=== PATIENT | male | born 1950 | race Caucasian/White ===

== ENCOUNTER 2016-10-15 09:06 | Observation (INO) | payer OTHER ==
[~2016-10-15] VITALS: Ht 167.6 cm; Wt 70.0 kg
[~2016-10-15 09:06] MED LIST: INDO25SU PO; SPIRCAP INH; VENTAER INH; ZOFR4TAB PO
[2016-10-15 09:07] VITALS: BP 142/85; PULSE 96; RESP 20; TEMP 98; O2SAT 95
[2016-10-15 09:47] LABS: AUTOMATED NEUTROPHIL # 4.2 TH/MM3 (1.8-7.7); BASOPHIL # 0.1 TH/MM3 (0-0.2); BASOPHIL % 1.2 % (0.0-2.0); EOSINOPHIL # 0.1 TH/MM3 (0-0.4); HEMATOCRIT 38.1 % (39.0-51.0); HEMO FLAGS DIFF FINAL; LYMPH % 14.4 % (9.0-44.0); LYMPHOCYTE # 0.9 TH/MM3 (1.0-4.8); MEAN CELL VOLUME 91.3 FL (80.0-100.0); MEAN CORPUSCULAR HEMOGLOBIN 30.3 PG (27.0-34.0); MEAN CORPUSCULAR HGB CONC 33.2 % (32.0-36.0); NEUT % 70.4 % (16.0-70.0); PLATELET COUNT 227 TH/MM3 (150-450); RED BLOOD COUNT 4.17 MIL/MM3 (4.50-5.90); RED CELL DISTRIBUTION WIDTH 15.7 % (11.6-17.2)
[2016-10-15 09:58] LABS: APTT (PATIENT) 28.1 SEC (24.3-30.1); INTERNATIONAL NORMALIZED RATIO 1.1 RATIO; PROTHROMBIN TIME - PATIENT 12.7 SEC (9.8-11.6)
--- NOTE | 2016-10-15 10:01 | PD ---
HPI . blood in stool this morning ~630am Chief Complaint: GI Complaint Time Seen by Provider: 09:47 Travel History International Travel<30 days: No Contact w/Intl Traveler<30days: No Traveled to known affect area: No History of Present Illness HPI 65 yr old male with COPD, intermittent HTN, tobaccoism, OA of the hips here with c/o blood coming from his rectum since this morning around 630am. Patient says he was having a bowel movement and noticed some balls of stool coming out then noticed blood and water coming out of his rectum. He admits to pain in his abdomen and bloating that has been ongoing for over 2 weeks. He says he rates the pain as 6/10 in his stomach and describes it as sharp pain. He says he gets full after eating small amounts of food. He did take a laxative and states he felt better afterwards (2 weeks ago). He also tells me that he vomited on Friday and denies eating any new foods or taking new medicines. He does have a primary care doctor at the [place] and last seen them about Nov of last year. He has an upcoming appt in October. Upon further questioning, he does admit to heavy drinking daily and states he had 5-6 beer yesterday. He has been drinking since age 19. He denies any hard liquor usage. He has not been seen for these issues. At the time of examination patient denies cp, no new onset SOB, nausea, or diarrhea. He does take lisinopril, high cholesterol medicine, inhaler, OA medicine, and something at night to calm him down. OLD CT SCAN of abdomen: hepatic steatosis PFSH Past Medical History Arthritis: Yes Asthma: Yes Heart Rhythm Problems: No Cardiac Catheterization: No Cardiovascular Problems: No High Cholesterol: No Chest Pain: No Congestive Heart Failure: No COPD: Yes Diabetes: No Past Surgical History Coronary Artery Bypass Graft: No Other Surgery: No Social History Alcohol Use: Yes (DAILY) Tobacco Use: Yes (1 PPD) Substance Use: No Allergies-Medications (Allergen,Severity, Reaction): Coded Allergies: *MDRO Multi-Drug Resistant Organism (Verified Adverse Reaction, Unknown, ) MRSA (leg-04/30/16) Reported Meds & Prescriptions Reported Meds & Active Scripts Active Reported Magnesium Oxide 400 Mg Tab 400 Mg PO DAILY Lisinopril 10 Mg Tab 5 Mg PO DAILY Aspirin Adult Low Strength (Aspirin) 81 Mg Tabdr 81 Mg PO DAILY Remeron (Mirtazapine) 15 Mg Tab 15 Mg PO HS Symbicort Inh (Budesonide/Formoterol Fumarate) 80-4.5 Mcg/Act Aero 2 Puff INH Q12HR Rinse mouth after use Zocor (Simvastatin) 10 Mg Tab 5 Mg PO DAILY Ventolin Hfa 18 GM Inh (Albuterol Sulfate) 90 Mcg/Act Aer 2 Puff INH Q4H PRN Spiriva Handihaler (Tiotropium Inh) 18 Mcg Cap 18 Mcg INH HS 1 capsule = 18 mcg Review of Systems General / Constitutional: No: Fever Eyes: No: Visual changes HENT: No: Headaches Cardiovascular: No: Chest Pain or Discomfort Respiratory: No: Shortness of Breath Gastrointestinal: Positive: Abdominal Pain, Constipation, Changes in Bowel Habits, Other (Bright red blood per rectum ), No: Nausea Genitourinary: No: Dysuria Musculoskeletal: No: Pain Skin: No Rash Neurologic: No: Weakness Psychiatric: No: Depression Endocrine: No: Polydipsia Hematologic/Lymphatic: No: Easy Bruising Physical Exam Narrative Physical Exam GENERAL: AAOx 3, NAD, well nourished HEAD: normocephalic, atraumatic EARS: normal pinna, no deformities EYES; EOM intact, fundus clear, no icterus MOUTH: Moist mucous membranes, NECK: supple, no lymphadenopathy RESP: Diminished breath sounds without rales or rhonchi CARDIAC :s1 AND S2, no rub, murmur or gallop ABD: DISTENDED, TENDER TO LIGHT PALPATION IN LUQ AND LLQ, RECTAL: no external hemorrhoid, + internal hemorrhoid palpated on exam ( present) BACK: no cva tenderness EXT: no edema or cyanosis PSYCH : AAO x3, normal affect Data Data Last Documented VS Vital Signs Date Time Temp Pulse Resp B/P Pulse Ox O2 Delivery O2 Flow Rate FiO2 10/15/16 09:07 98.0 96 20 142/85 95 Room Air Orders Complete Blood Count With Diff (10/15/16 09:12) Comprehensive Metabolic Panel (10/15/16 09:12) Prothrombin Time / Inr (Pt) (10/15/16 09:12) Act Partial Throm Time (Ptt) (10/15/16 09:12) Iv Access Insert/Monitor (10/15/16 09:12) Type And Screen (10/15/16 09:12) NPO (10/15/16 10:01) Ct Abd/Pel W/O Iv Contrast (10/15/16 10:07) Oral Contrast - Adult (10/15/16 10:12) Sodium Chlor 0.9% 1000 Ml Inj (Ns 1000 M (10/15/16 11:15) Pantoprazole Inj (Protonix Inj) (10/15/16 11:15) Pantoprazole Inj (Protonix Inj) (10/15/16 12:00) Consult Gastroenterology (10/15/16 ) ^ Consent (10/15/16 11:31) Admit Order (Ed Use Only) (10/15/16 11:42) Labs Laboratory Tests Test 10/15/16 09:20 White Blood Count 6.0 TH/MM3 Red Blood Count 4.17 MIL/MM3 Hemoglobin 12.7 GM/DL Hematocrit 38.1 % Mean Corpuscular Volume 91.3 FL Mean Corpuscular Hemoglobin 30.3 PG Mean Corpuscular Hemoglobin 33.2 % Concent Red Cell Distribution Width 15.7 % Platelet Count 227 TH/MM3 Mean Platelet Volume 7.6 FL Neutrophils (%) (Auto) 70.4 % Lymphocytes (%) (Auto) 14.4 % Monocytes (%) (Auto) 13.0 % Eosinophils (%) (Auto) 1.0 % Basophils (%) (Auto) 1.2 % Neutrophils # (Auto) 4.2 TH/MM3 Lymphocytes # (Auto) 0.9 TH/MM3 Monocytes # (Auto) 0.8 TH/MM3 Eosinophils # (Auto) 0.1 TH/MM3 Basophils # (Auto) 0.1 TH/MM3 CBC Comment DIFF FINAL Differential Comment Prothrombin Time 12.7 SEC Prothromb Time International 1.1 RATIO Ratio Activated Partial 28.1 SEC Thromboplast Time Sodium Level 133 MEQ/L Potassium Level 4.0 MEQ/L Chloride Level 102 MEQ/L Carbon Dioxide Level 23.8 MEQ/L Anion Gap 7 MEQ/L Blood Urea Nitrogen 8 MG/DL Creatinine 0.87 MG/DL Estimat Glomerular Filtration 89 ML/MIN Rate Random Glucose 93 MG/DL Calcium Level 8.5 MG/DL Total Bilirubin 1.5 MG/DL Aspartate Amino Transf 134 U/L (AST/SGOT) Alanine Aminotransferase 60 U/L (ALT/SGPT) Alkaline Phosphatase 99 U/L Total Protein 9.8 GM/DL Albumin 2.8 GM/DL Blood Type A POSITIVE Antibody Screen NEGATIVE Blood Bank Comment MDM Medical Decision Making Medical Screen Exam Complete: Yes Emergency Medical Condition: Yes Medical Record Reviewed: Yes Differential Diagnosis constipation, hemorrhoids, diverticulitis, less likely GI bleed, liver cirrhosis (with abdominal distention), Narrative Course 65 yr old male with COPD, intermittent HTN, tobaccoism, OA of the hips here with c/o blood coming from his rectum since this morning around 630am. Patient says he was having a bowel movement and noticed some balls of stool coming out then noticed blood and water coming out of his rectum. He admits to pain in his abdomen and bloating that has been ongoing for over 2 weeks. He says he rates the pain as 6/10 in his stomach and describes it as sharp pain. He says he gets full after eating small amounts of food. He did take a laxative and states he felt better afterwards (2 weeks ago). He also tells me that he vomitted on Friday and denies eating any new foods or taking new medicines. He does have a primary care doctor at the [place] and last seen them about Jul of last year. He has an upcoming appt in October. Upon further questioning, he does admit to heavy drinking daily and states he had 5-6 beer yesterday. He has been drinking since age 19. He denies any hard liquor usage. He has not been seen for these issues. At the time of examination patient denies cp, no new onset SOB, nausea, or diarrhea. He does take lisinopril, high cholesterol medicine, inhaler, OA medicine, and something at night to calm him down. OLD CT SCAN of abdomen: hepatic steatosis Patient seen and examined. Workup initiated in triage. Once a medical bed becomes available, patient will be transferred and care assumed by the provider assigned to the case. Florecita Damian Oct 15, 2016 10:01
[2016-10-15 10:12] LABS: ANION GAP 7 MEQ/L (5-15); AST (GOT) 134 U/L (15-37); BICARBONATE 23.8 MEQ/L (21.0-32.0); BLOOD UREA NITROGEN 8 MG/DL (7-18); CHLORIDE 102 MEQ/L (98-107); GLOMERULAR FILTRATION RATE 89 ML/MIN (>89); SODIUM (NA) 133 MEQ/L (136-145)
[2016-10-15 10:15] LABS: ALKALINE PHOSPHATASE 99 U/L (45-117); ALT (GPT) 60 U/L (12-78); TOTAL BILIRUBIN ADULT 1.5 MG/DL (0.2-1.0)
--- NOTE | 2016-10-15 11:04 | PD ---
Physical Exam Narrative Patient was seen by physician cement tester assistant and signed out to me. Data Data Last Documented VS Vital Signs Date Time Temp Pulse Resp B/P Pulse Ox O2 Delivery O2 Flow Rate FiO2 10/15/16 09:07 98.0 96 20 142/85 95 Room Air Orders Complete Blood Count With Diff (10/15/16 09:12) Comprehensive Metabolic Panel (10/15/16 09:12) Prothrombin Time / Inr (Pt) (10/15/16 09:12) Act Partial Throm Time (Ptt) (10/15/16 09:12) Iv Access Insert/Monitor (10/15/16 09:12) Type And Screen (10/15/16 09:12) NPO (10/15/16 10:01) Ct Abd/Pel W/O Iv Contrast (10/15/16 10:07) Oral Contrast - Adult (10/15/16 10:12) Sodium Chlor 0.9% 1000 Ml Inj (Ns 1000 M (10/15/16 11:15) Pantoprazole Inj (Protonix Inj) (10/15/16 11:15) Protonix Drip 8ommg/Hr (10/15/16 11:30) Consult Gastroenterology (10/15/16 ) Labs Laboratory Tests Test 10/15/16 09:20 White Blood Count 6.0 TH/MM3 Red Blood Count 4.17 MIL/MM3 Hemoglobin 12.7 GM/DL Hematocrit 38.1 % Mean Corpuscular Volume 91.3 FL Mean Corpuscular Hemoglobin 30.3 PG Mean Corpuscular Hemoglobin 33.2 % Concent Red Cell Distribution Width 15.7 % Platelet Count 227 TH/MM3 Mean Platelet Volume 7.6 FL Neutrophils (%) (Auto) 70.4 % Lymphocytes (%) (Auto) 14.4 % Monocytes (%) (Auto) 13.0 % Eosinophils (%) (Auto) 1.0 % Basophils (%) (Auto) 1.2 % Neutrophils # (Auto) 4.2 TH/MM3 Lymphocytes # (Auto) 0.9 TH/MM3 Monocytes # (Auto) 0.8 TH/MM3 Eosinophils # (Auto) 0.1 TH/MM3 Basophils # (Auto) 0.1 TH/MM3 CBC Comment DIFF FINAL Differential Comment Prothrombin Time 12.7 SEC Prothromb Time International 1.1 RATIO Ratio Activated Partial 28.1 SEC Thromboplast Time Sodium Level 133 MEQ/L Potassium Level 4.0 MEQ/L Chloride Level 102 MEQ/L Carbon Dioxide Level 23.8 MEQ/L Anion Gap 7 MEQ/L Blood Urea Nitrogen 8 MG/DL Creatinine 0.87 MG/DL Estimat Glomerular Filtration 89 ML/MIN Rate Random Glucose 93 MG/DL Calcium Level 8.5 MG/DL Total Bilirubin 1.5 MG/DL Aspartate Amino Transf 134 U/L (AST/SGOT) Alanine Aminotransferase 60 U/L (ALT/SGPT) Alkaline Phosphatase 99 U/L Total Protein 9.8 GM/DL Albumin 2.8 GM/DL Blood Type A POSITIVE Antibody Screen NEGATIVE Blood Bank Comment MDM Supervised Visit with AYSHA: Yes Interpretation(s) 11:11 AM. CBC WBC 6.0. Hemoglobin 12.7 with hematocrit 38.1. Sodium 133. Total bili 1.5. AST 134. CT scan abdomen pelvis shows fatty infiltration of the liver. No acute process. Differential Diagnosis Differential diagnosis including gastritis, peptic ulcer disease, colitis, AV malformation, hemorrhoidal bleed. Narrative Course 65-year-old male with abdominal pain and rectal bleeding. Patient has history of EtOH abuse and on Indocin for osteoarthritis. Normal saline solution 1 25 cc an hour. Protonix 40 mg IV. Protonix drip started. Spoke with GI specialist Dr. León. Will see the patient. Diagnosis Primary Impression: GI bleed Qualified Code: K92.2 - Gastrointestinal hemorrhage, unspecified gastrointestinal hemorrhage type Admitting Information Admitting Physician Requests: Admit Faahd Chávez MD Oct 15, 2016 11:04
--- NOTE | 2016-10-15 11:06 | RADRPT ---
EXAM DATE/TIME: 10/15/2016 10:49 [facility] COMPARISON: CT ABDOMEN & PELVIS W CONTRAST, July 15, 2016, 10:02. INDICATIONS : Mid abdominal pain and rectal bleeding x 2 weeks. ORAL CONTRAST: No oral contrast ingested. RADIATION DOSE: 9.96 CTDIvol (mGy) MEDICAL HISTORY : Chronic obstructive pulmonary disease. Hypertension. SURGICAL HISTORY : None. ENCOUNTER: Initial ACUITY: 2 weeks PAIN SCALE: 6/10 LOCATION: Bilateral mid-abdomen TECHNIQUE: Volumetric scanning of the abdomen and pelvis was performed. Using automated exposure control and ad justment of the mA and/or kV according to patient size, radiation dose was kept as low as reasonably achievable to obtain optimal diagnostic quality images. FINDINGS: LOWER LUNGS: The visualized lower lungs are clear except for calcified granuloma in the right lower lobe. LIVER: Homogeneous density without lesion. There is diffuse fatty infiltration. The gallbladder appears unre markable. There is no dilation of the biliary tree. No calcified gallstones. SPLEEN: Normal size without lesion. Calcified splenic granulomas are again noted. PANCREAS: Within normal limits. KIDNEYS: Normal in size and shape. There is no mass, stone, or hydronephrosis. ADRENAL GLANDS: Within normal limits. VASCULAR: There is no aortic aneurysm. BOWEL/MESENTERY: The stomach, small bowel, and colon demonstrate no acute abnormality. There is no free intraperitone al air or fluid. There is a normal appendix. ABDOMINAL WALL: Within normal limits. RETROPERITONEUM: There is no lymphadenopathy. BLADDER: No wall thickening or mass. REPRODUCTIVE: Within normal limits. INGUINAL: There is no lymphadenopathy or hernia. MUSCULOSKELETAL: Within normal limits for patient age. CONCLUSION: 1. The bowel gas pattern appears unremarkable. The sensitivity is limited by the lack of oral and int ravenous contrast. 2. Fatty infiltration of the liver again noted. 3. Calcified splenic granulomas. Jamir Crawford MD on October 15, 2016 at 11:02 Board Certified Radiologist. This report was verified electronically.
[2016-10-15] MEDS ORDERED: PANTOPRAZOLE SODIUM 40 MG VIAL IV PUSH ONE (11:15)
[2016-10-15] MEDS ORDERED: LISI10TA3 PO (11:31)
[2016-10-15] MEDS ORDERED: MAGN400T2 PO (11:31)
[2016-10-15] MEDS ORDERED: SYMB80AE INH (11:31)
[2016-10-15] MEDS ORDERED: ASPI1TAB91 PO (11:31)
[2016-10-15] MEDS ORDERED: REME15TA PO (11:31)
[2016-10-15] MEDS ORDERED: ZOCO10TA PO (11:31)
[2016-10-15] MEDS: SODIUM CHLOR 0.9% 1000 ML INJ 1,000 ML IV SCH ×2 (11:39→19:05)
--- NOTE | 2016-10-15 11:51 | PD.CONS ---
HPI History of Present Illness This is a 65 year old male who came to the ER for evaluation of rectal bleeding that started around 6am this morning. He reports that he got up to move his bowels and he passed a large amount of bloody stool that was loose and mostly bright red blood- large amount of blood. He has had a total of 3 episodes. He reports that his abdomen has been bloated and "sore" for a few weeks. This was more severe last week and his abdomen was much tighter and the pain was quite severe. He was constipated at that time and took a laxative. He reports that he had a normal bowel movement and felt better afterwards. He had a similar episode a few months ago that lasted about a day and resolved on his own so he did not seek medical care. He denies nausea/vomiting, heartburn or reflux, decreased appetite, weight loss. He does not usually have constipation and last week was out of his norm. He takes a daily ASA at home and takes Aleve 3 tabs every day. He has a remote hx of PUD, many years ago. He had an EGD/ Colonoscopy 1 year ago at the [place] and he reports that this was normal. He drinks a 6 pack of beer per day, not every day, but pretty regularly. He denies any known history of liver cirrhosis. (Karen Sharma) PFSH Past Medical History Remote hx of PUD Rectal bleeding a few months ago- did not seek medical care Arthritis HTN COPD Past Surgical History EGD/Colonoscopy (Karen Sharma) Coded Allergies: *MDRO Multi-Drug Resistant Organism (Verified Adverse Reaction, Unknown, ) MRSA (leg-04/30/16) Medications Allergies Coded Allergies Type Severity Reaction Last Updated Verified *MDRO Multi-Drug Resistant Organism Adverse Reaction Unknown 10/15/16 Yes Active Scripts Medications Dose Route/Sig Days Date Category Dose Instructions Magnesium Oxide 400 Mg Tab 400 Mg PO DAILY 10/15/16 Reported Lisinopril 10 Mg Tab 5 Mg PO DAILY 10/15/16 Reported Aspirin Adult Low Strength (Aspirin) 81 Mg Tabdr 81 Mg PO DAILY 10/15/16 Reported Remeron (Mirtazapine) 15 Mg Tab 15 Mg PO HS 10/15/16 Reported Symbicort Inh (Budesonide/Formoterol Fumarate) 80-4.5 Mcg/Act Aero 2 Puff INH Q12HR 10/15/16 Reported Rinse mouth after use Zocor (Simvastatin) 10 Mg Tab 5 Mg PO DAILY 10/15/16 Reported Ventolin Hfa 18 GM Inh (Albuterol Sulfate) 90 Mcg/Act Aer 2 Puff INH Q4H PRN 07/15/16 Reported Spiriva Handihaler (Tiotropium Inh) 18 Mcg Cap 18 Mcg INH HS 07/15/16 Reported 1 capsule = 18 mcg Family History Multiple family members with cancer- lung, brain, breast. Cannot remember who. Believes his sister had cancer. Social History 1 PPD, ~40 years ~4 beers per day No illicit drug use. (Karen Sharma) Review of Systems Constitutional: COMPLAINS OF: Fatigue, DENIES: Weight loss, Change in appetite Respiratory: COMPLAINS OF: Cough, Shortness of breath Cardiovascular: DENIES: Chest pain Gastrointestinal: COMPLAINS OF: Abdominal pain, Bloody stools, Constipation, Diarrhea, Swelling of Abdomen, DENIES: Black stools, Nausea, Vomiting, Heartburn, Hematemesis Musculoskeletal: COMPLAINS OF: Joint pain Integumentary: DENIES: Abnormal pigmentation Hematologic/lymphatic: DENIES: Bruising Neurologic: DENIES: Headache Psychiatric: DENIES: Confusion (Karen Sharma) GI Exam Vitals I&O Vital Signs Date Time Temp Pulse Resp B/P Pulse Ox O2 Delivery O2 Flow Rate FiO2 10/15/16 09:07 98.0 96 20 142/85 95 Room Air Imaging Last Impressions Abdomen/Pelvis CT 10/15/16 1007 Signed Impressions: Service Date/Time: Saturday, October 15, 2016 10:49 - CONCLUSION: 1. The bowel gas pattern appears unremarkable. The sensitivity is limited by the lack of oral and intravenous contrast. 2. Fatty infiltration of the liver again noted. 3. Calcified splenic granulomas. Jamir Crawford MD Laboratory Test 10/15/16 09:20 White Blood Count 6.0 TH/MM3 Red Blood Count 4.17 MIL/MM3 Hemoglobin 12.7 GM/DL Hematocrit 38.1 % Mean Corpuscular Volume 91.3 FL Mean Corpuscular Hemoglobin 30.3 PG Mean Corpuscular Hemoglobin 33.2 % Concent Red Cell Distribution Width 15.7 % Platelet Count 227 TH/MM3 Mean Platelet Volume 7.6 FL Neutrophils (%) (Auto) 70.4 % Lymphocytes (%) (Auto) 14.4 % Monocytes (%) (Auto) 13.0 % Eosinophils (%) (Auto) 1.0 % Basophils (%) (Auto) 1.2 % Neutrophils # (Auto) 4.2 TH/MM3 Lymphocytes # (Auto) 0.9 TH/MM3 Monocytes # (Auto) 0.8 TH/MM3 Eosinophils # (Auto) 0.1 TH/MM3 Basophils # (Auto) 0.1 TH/MM3 CBC Comment DIFF FINAL Differential Comment Prothrombin Time 12.7 SEC Prothromb Time International 1.1 RATIO Ratio Activated Partial 28.1 SEC Thromboplast Time Sodium Level 133 MEQ/L Potassium Level 4.0 MEQ/L Chloride Level 102 MEQ/L Carbon Dioxide Level 23.8 MEQ/L Anion Gap 7 MEQ/L Blood Urea Nitrogen 8 MG/DL Creatinine 0.87 MG/DL Estimat Glomerular Filtration 89 ML/MIN Rate Random Glucose 93 MG/DL Calcium Level 8.5 MG/DL Total Bilirubin 1.5 MG/DL Aspartate Amino Transf 134 U/L (AST/SGOT) Alanine Aminotransferase 60 U/L (ALT/SGPT) Alkaline Phosphatase 99 U/L Total Protein 9.8 GM/DL Albumin 2.8 GM/DL Blood Type A POSITIVE Antibody Screen NEGATIVE Blood Bank Comment Physical Examination HEENT: Normocephalic; atraumatic; no jaundice. Throat is clear. NECK: Neck is supple, no JVD, no lymphadenopathy. CHEST: CTA CARDIAC: RRR ABDOMEN: Soft, nondistended, nontender; no hepatosplenomegaly; bowel sounds are present in all four quadrants. EXTREMITIES: No clubbing, cyanosis, or edema. SKIN: Normal; no rash; no jaundice. ATTENDING ANESTHESIOLOGIST: No focal deficits; alert and oriented times three. (Karen Sharma [facility]) Assessment and Plan Plan ASSESSMENT: - GIB, Hematochezia in patient with chronic ETOH use, daily ASA use, and daily Aleve use (3 per day). States he had similar episode a few months ago that resolved on his own and therefore he did not seek medical care. Woke up this am, passed 3 large bloody stools with large amount of bright red blood filling toilet. He denies any n/v/heartburn. No abdominal pain now, but states his entire abdomen is sore and that he did have constipation/bloating/abdominal pain last week. He took laxative at that time and had a good bowel movement and no further abdominal pain, although his entire has remained "sore" and bloated. Remote hx of PUD. He had an EGD/Colonoscopy 1 year ago at the [place] and he reports that this was normal. Abdomen/Pelvis CT (10/15/16)---> 1. The bowel gas pattern appears unremarkable. The sensitivity is limited by the lack of oral and intravenous contrast. 2. Fatty infiltration of the liver again noted. 3. Calcified splenic granulomas.He drinks a 6 pack of beer per day, not every day, but pretty regularly. He denies any known history of liver cirrhosis. NPO. Plan for egd with possible band ligation today. If this is negative, will need colonoscopy in am. Protonix Gtt. - Anemia, acute blood loss. 12.7/38.1. - Elevated LFTs with ongoing ETOH use. Denies the use of ETOH. Fatty liver on CT. T. Bili 1.5, AST 134, ALT 60, ALk Phosph 99. Consistent with ETOH abuse. - Hyponatremia, HTN, Arthritis per primary. PLAN: - Plan for EGD with possible band ligation today - Npo - Protonix Gtt - Serial HH - Transfuse as necessary - CBC, CMP in am - Notify GI of active bleeding - Supportive care - Further recommendations to follow based on results of above - Pt seen and examined by Dr. León and myself and this note is written on her behalf (Karen Sharma) Physician Comments seen, examined agree with above (Zeinab León MD) Karen Sharma Oct 15, 2016 11:50 Zeinab León MD Oct 15, 2016 14:10
[2016-10-15] MEDS: PANTOPRAZOLE INJ 80 MG in SODIUM CHLORIDE 0.9% INJ 100 ML IV SCH ×2 (12:01→21:04)
--- NOTE | 2016-10-15 12:12 | HHI.HP ---
[facility] Admission Diagnosis GI bleed Diagnoses: (1) GI bleed (2) Tobacco abuse (3) Benign hypertension (4) COPD (chronic obstructive pulmonary disease) (5) Arthritis (6) Alcohol abuse Chief Complaint: Blood per rectum -Bright red Travel History International Travel<30 Days: No Contact w/Intl Traveler <30 Da: No Traveled to Known Affected Are: No History of Present Illness 64 year-old male with a history of COPD, hypertension, arthritis with irregularity take 3 Aleve a day and 1 baby aspirin presented to the ED for evaluation of 3 episode of bright red blood per rectum which occur early this morning around 6 A.M associated with some abdominal service without any hematuria, hemoptysis. Patient reports similar episode about 2 months ago however at the time did not seek any medical attention. His last EGD/ colonoscopy was about a year ago without any abnormal findings. He drinks about 4 can of beer per day. He reported occasional shortness of breath however denies any chest pain. Review of Systems Other 12 systems reviewed and are negative except for the one mentioned in history of present illness Past Family Social History Past Medical History Remote hx of PUD Rectal bleeding a few months ago- did not seek medical care Arthritis HTN COPD Past Surgical History EGD/Colonoscopy Reported Medications Ventolin Hfa 18 GM Inh (Albuterol Sulfate) 90 Mcg/Act Aer 2 Puff INH Q4H PRN Spiriva Handihaler (Tiotropium Inh) 18 Mcg Cap 18 Mcg INH DAILY 1 capsule = 18 mcg Indocin Liq (Indomethacin) 25 Mg/5 Ml Susp 50 Mg PO TID Allergies: Coded Allergies: *MDRO Multi-Drug Resistant Organism (Verified Adverse Reaction, Unknown, ) MRSA (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 Cannot remember who. Believes his sister had cancer. Social History 1 PPD, ~40 years ~4 beers per day No illicit drug use. Physical Exam Vital Signs Vital Signs Date Time Temp Pulse Resp B/P Pulse Ox O2 Delivery O2 Flow Rate FiO2 10/15/16 09:07 98.0 96 20 142/85 95 Room Air Physical Exam GENERAL: This is a well-nourished, well-developed patient, in no apparent distress. SKIN: No rashes, ecchymoses or lesions. Cool and dry. HEAD: Atraumatic. Normocephalic. No temporal or scalp tenderness. EYES: Pupils equal round and reactive. Extraocular motions intact. No scleral icterus. No injection or drainage. ENT: Nose without bleeding, purulent drainage or septal hematoma. Throat without erythema, tonsillar hypertrophy or exudate. Uvula midline. Airway patent. NECK: Trachea midline. No JVD or lymphadenopathy. Supple, nontender, no meningeal signs. CARDIOVASCULAR: Regular rate and rhythm without murmurs, gallops, or rubs. RESPIRATORY: Clear to auscultation. Breath sounds equal bilaterally. No wheezes , rales, or rhonchi. GASTROINTESTINAL: Abdomen soft, non-tender, nondistended. No hepato-splenomegaly , or palpable masses. No guarding. MUSCULOSKELETAL: Extremities without clubbing, cyanosis, or edema. No joint tenderness, effusion, or edema noted. No calf tenderness. Negative Homans sign bilaterally. NEUROLOGICAL: Awake and alert. Cranial nerves II through XII intact. Motor and sensory grossly within normal limits. Five out of 5 muscle strength in all muscle groups. Normal speech. Laboratory Laboratory Tests Test 10/15/16 09:20 White Blood Count 6.0 Red Blood Count 4.17 Hemoglobin 12.7 Hematocrit 38.1 Mean Corpuscular Volume 91.3 Mean Corpuscular Hemoglobin 30.3 Mean Corpuscular Hemoglobin 33.2 Concent Red Cell Distribution Width 15.7 Platelet Count 227 Mean Platelet Volume 7.6 Neutrophils (%) (Auto) 70.4 Lymphocytes (%) (Auto) 14.4 Monocytes (%) (Auto) 13.0 Eosinophils (%) (Auto) 1.0 Basophils (%) (Auto) 1.2 Neutrophils # (Auto) 4.2 Lymphocytes # (Auto) 0.9 Monocytes # (Auto) 0.8 Eosinophils # (Auto) 0.1 Basophils # (Auto) 0.1 CBC Comment DIFF FINAL Differential Comment Prothrombin Time 12.7 Prothromb Time International 1.1 Ratio Activated Partial 28.1 Thromboplast Time Sodium Level 133 Potassium Level 4.0 Chloride Level 102 Carbon Dioxide Level 23.8 Anion Gap 7 Blood Urea Nitrogen 8 Creatinine 0.87 Estimat Glomerular Filtration 89 Rate Random Glucose 93 Calcium Level 8.5 Total Bilirubin 1.5 Aspartate Amino Transf 134 (AST/SGOT) Alanine Aminotransferase 60 (ALT/SGPT) Alkaline Phosphatase 99 Total Protein 9.8 Albumin 2.8 Blood Type A POSITIVE Antibody Screen NEGATIVE Blood Bank Comment Result Diagram: 10/15/16 0920 10/15/16 0920 Imaging Last Impressions Abdomen/Pelvis CT 10/15/16 1007 Signed Impressions: Service Date/Time: Saturday, October 15, 2016 10:49 - CONCLUSION: 1. The bowel gas pattern appears unremarkable. The sensitivity is limited by the lack of oral and intravenous contrast. 2. Fatty infiltration of the liver again noted. 3. Calcified splenic granulomas. Jamir Crawford MD Assessment and Plan Problem List: (1) GI bleed ICD Code: K92.2 Status: Acute (2) Benign hypertension ICD Code: I10 Status: Acute (3) COPD (chronic obstructive pulmonary disease) ICD Code: J44.9 Status: Acute (4) Arthritis ICD Code: M19.90 Status: Acute (5) Tobacco abuse ICD Code: Z72.0 Status: Acute (6) Alcohol abuse ICD Code: F10.10 Status: Acute Assessment and Plan 65-year-old male with 1-GI bleed: Likely upper GI, gastroenterology has been consulted for evaluation for panendoscopy. Start Protonix drip and monitor H&H. Hold aspirin and Aleve 2-Anemia of acute blood loss: However H&H stable, treatment as in above plan for EGD possible today pain consider colonoscopy tomorrow. 3-Hypertension: Resume lisinopril 4-COPD: No current exacerbation, resume; and start DuoNeb when necessary. Advised on tobacco cessation 5-Tobacco abuse: Counseled to quit, start nicotine patch 6-Alcohol abuse: Counseled to quit, rally pack and start CIWA per protocol 7-DVT prophylaxis: Chemical anti-prophylaxis contraindicated; bilateral SCDs 8-GI prophylaxis: EPI Code Status Full code Discussed Condition With Patient, ED physician Problem Qualifiers (1) GI bleed: Qualified Code: K92.2 - Gastrointestinal hemorrhage, unspecified gastrointestinal hemorrhage type Tito Hoover MD Oct 15, 2016 12:12
[2016-10-15] MEDS ORDERED: ACETAMINOPHEN 325 MG TAB PO PRN ×2 (12:15)
[2016-10-15] MEDS ORDERED: TEMAZEPAM 15 MG CAP PO PRN (12:15)
[2016-10-15] MEDS ORDERED: LORazepam 2 MG TAB PO PRN (12:15)
[2016-10-15] MEDS ORDERED: SODIUM CHLORIDE 0.9% FLUSH 5 ML FLUSH FLUSH PRN (12:15)
[2016-10-15] MEDS ORDERED: RESP: ALBUTEROL 2.5 MG/IPRATROPIUM 0.5 MG NEB (PRN) NEB (12:15)
[2016-10-15] MEDS ORDERED: LORazepam 1 MG TAB PO PRN (12:15)
[2016-10-15] MEDS ORDERED: ENALAPRILAT 1.25 MG/ML VIAL IV PUSH PRN (12:15)
[2016-10-15] MEDS ORDERED: FLUMAZENIL 0.5 MG/5 ML VIAL IV PUSH PRN (12:15)
[2016-10-15] MEDS ORDERED: ONDANSETRON HCL 4 MG/2 ML VIAL IVP PRN (12:15)
[2016-10-15] MEDS ORDERED: NALOXONE HCL 0.4 MG/ML AMP IV PRN (12:15)
[2016-10-15] MEDS ORDERED: LORazepam 2 MG/ML VIAL IV PUSH PRN ×4 (12:15)
[2016-10-15 13:10] VITALS: BP 142/85; PULSE 96; RESP 20; TEMP 98; O2SAT 95
[2016-10-15] MEDS ORDERED: LACTATED RINGER'S 1,000 ML BAG IV ONE (14:02)
[2016-10-15] MEDS ORDERED: PROPOFOL 200 MG/20 ML AMP IV ONE (14:02)
[2016-10-15] MEDS ORDERED: MAGNESIUM CITRATE SOLN 300 ML BTL PO ONE (14:15)
[2016-10-15 14:58] VITALS: BP 128/97; PULSE 89; RESP 24; TEMP 97.5; O2SAT 94
[2016-10-15] MEDS: NICOTINE 21 MG/24 HR PATCH TD SCH (15:28)
[2016-10-15 19:21] VITALS: BP 147/87; PULSE 100; RESP 18; TEMP 98.4; O2SAT 93
[2016-10-15] MEDS ORDERED: MIRTAZAPINE 15 MG TAB PO SCH (21:00)
[2016-10-15] MEDS: BUDESONIDE-FORMOTEROL 80/4.5 MCG INHALER INH SCH (21:03)
[2016-10-15] MEDS: SODIUM CHLORIDE 0.9% FLUSH 5 ML FLUSH FLUSH SCH (21:04)
[2016-10-15] MEDS: TIOTROPIUM BROMIDE 18 MCG INH INH SCH (21:04)
[2016-10-15 21:46] LABS: HEMATOCRIT 33.8 % (39.0-51.0); REVIEW FLAG FINAL
[2016-10-16] VITALS (7 sets, daily range): BP systolic 89–163; BP diastolic 49–96; PULSE 59–97; RESP 18–22; TEMP 97.1–98.1; O2SAT 92–96
[2016-10-16 02:52] LABS: BASOPHIL % 0.5 % (0.0-2.0); EOSINOPHIL % 0.9 % (0.0-4.0); HEMATOCRIT 33.1 % (39.0-51.0); HEMO FLAGS DIFF FINAL; LYMPH % 15.2 % (9.0-44.0); LYMPHOCYTE # 0.8 TH/MM3 (1.0-4.8); MEAN CELL VOLUME 90.7 FL (80.0-100.0); MEAN CORPUSCULAR HEMOGLOBIN 30.6 PG (27.0-34.0); MEAN CORPUSCULAR HGB CONC 33.7 % (32.0-36.0); MONO % 10.9 % (0.0-8.0); NEUT % 72.5 % (16.0-70.0); PLATELET COUNT 196 TH/MM3 (150-450); RED BLOOD COUNT 3.65 MIL/MM3 (4.50-5.90); RED CELL DISTRIBUTION WIDTH 15.5 % (11.6-17.2); WHITE BLOOD COUNT 5.6 TH/MM3 (4.0-11.0)
[2016-10-16 03:10] LABS: ALT (GPT) 53 U/L (12-78); ANION GAP 7 MEQ/L (5-15); AST (GOT) 120 U/L (15-37); BICARBONATE 24.7 MEQ/L (21.0-32.0); BLOOD UREA NITROGEN 8 MG/DL (7-18); CHLORIDE 108 MEQ/L (98-107); GLOMERULAR FILTRATION RATE 95 ML/MIN (>89); POTASSIUM 3.9 MEQ/L (3.5-5.1); SODIUM (NA) 140 MEQ/L (136-145)
[2016-10-16 03:12] LABS: ALKALINE PHOSPHATASE 87 U/L (45-117); TOTAL BILIRUBIN ADULT 1.3 MG/DL (0.2-1.0)
[2016-10-16] MEDS: SODIUM CHLOR 0.9% 1000 ML INJ 1,000 ML IV SCH (03:38)
[2016-10-16] MEDS: SODIUM CHLORIDE 0.9% FLUSH 5 ML FLUSH FLUSH SCH (09:00)
[2016-10-16] MEDS ORDERED: THIAMINE HCL 100 MG TAB PO SCH (09:00)
[2016-10-16] MEDS ORDERED: REMOVE OLD PATCH TD SCH (09:00)
[2016-10-16] MEDS ORDERED: LISINOPRIL 5 MG TAB PO SCH (09:00)
[2016-10-16] MEDS ORDERED: PRAVASTATIN SOD 10 MG TAB PO SCH (09:00)
[2016-10-16] MEDS ORDERED: DO NOT ADM ANY ANTICOAGULANT DRUGS XX PRN (09:30)
--- NOTE | 2016-10-16 09:36 | HHI.PR ---
Subjective Remarks Follow-up GI bleed 10/16/16-patient seen and examined, status post EGD yesterday and plan for colonoscopy today. Denies any GI bleed since admission. Objective Vitals Vital Signs Date Time Temp Pulse Resp B/P Pulse Ox O2 Delivery O2 Flow Rate FiO2 10/16/16 08:11 98.1 92 22 163/96 96 10/16/16 05:46 59 118/58 10/16/16 05:44 97.2 59 18 89/49 94 10/16/16 05:39 97.1 94 18 147/85 92 10/16/16 00:49 98.0 97 18 130/79 93 10/15/16 19:21 98.4 100 18 147/87 93 10/15/16 19:20 Nasal Cannula 3.00 10/15/16 14:58 97.5 89 24 128/97 94 10/15/16 14:22 99 18 134/83 96 10/15/16 14:17 98 18 126/90 97 10/15/16 14:12 98.5 99 18 128/81 96 10/15/16 13:10 98.0 96 20 142/85 95 I/O 10/15/16 10/15/16 10/15/16 10/16/16 10/16/16 10/16/16 07:00 15:00 23:00 07:00 15:00 23:00 Intake Total 100 ml Balance 100 ml Intake Other 100 ml # Bowel Movements 5 Result Diagram: 10/16/16 0231 10/16/16 0231 Imaging Last Impressions Abdomen/Pelvis CT 10/15/16 1007 Signed Impressions: Service Date/Time: Saturday, October 15, 2016 10:49 - CONCLUSION: 1. The bowel gas pattern appears unremarkable. The sensitivity is limited by the lack of oral and intravenous contrast. 2. Fatty infiltration of the liver again noted. 3. Calcified splenic granulomas. Jamir Crawford MD Objective Remarks GENERAL: NAD SKIN: Warm and dry. HEAD: Normocephalic. EYES: No scleral icterus. No injection or drainage. NECK: Supple, trachea midline. No JVD or lymphadenopathy. CARDIOVASCULAR: Regular rate and rhythm without murmurs, gallops, or rubs. RESPIRATORY: Breath sounds equal bilaterally. No accessory muscle use. GASTROINTESTINAL: Abdomen soft, non-tender, nondistended. MUSCULOSKELETAL: No cyanosis, or edema. BACK: Nontender without obvious deformity. No CVA tenderness. A/P Problem List: (1) GI bleed ICD Code: K92.2 Status: Acute (2) Benign hypertension ICD Code: I10 Status: Acute (3) COPD (chronic obstructive pulmonary disease) ICD Code: J44.9 Status: Acute (4) Arthritis ICD Code: M19.90 Status: Acute (5) Tobacco abuse ICD Code: Z72.0 Status: Acute (6) Alcohol abuse ICD Code: F10.10 Status: Acute Assessment and Plan 65-year-old male with 1-GI bleed: Likely upper GI, gastroenterology has been consulted, s/p EGD with finding of gastritis and duodenitis, plan for colonoscopy today . Continue Protonix drip and monitor H&H. Hold aspirin and Aleve. Advised on alcohol cessation 2-Anemia of acute blood loss: However H&H stable, treatment as in above ; s/p EGD 10/15/16 and plan for colonoscopy today. 3-Hypertension: Continue lisinopril 4-COPD: No current exacerbation, continue Symbicort and DuoNeb when necessary. Advised on tobacco cessation 5-Tobacco abuse: Counseled to quit, on nicotine patch 6-Alcohol abuse: Counseled to quit, rally pack and CIWA per protocol 7-DVT prophylaxis: Chemical anti-prophylaxis contraindicated; bilateral SCDs 8-GI prophylaxis: PPI Discharge Planning Discharge patient to home Condition on discharge: Improved Regular Diet as tolerated Ad Tory activity Rx written:see EMR Follow-up with primary care physician in 1 week Problem Qualifiers (1) GI bleed: Qualified Code: K92.2 - Gastrointestinal hemorrhage, unspecified gastrointestinal hemorrhage type Tito Hoover MD Oct 16, 2016 09:36
[2016-10-16] MEDS: NICOTINE 21 MG/24 HR PATCH TD SCH (10:26)
[2016-10-16] MEDS: TIOTROPIUM BROMIDE 18 MCG INH INH SCH (10:28)
[2016-10-16] MEDS: BUDESONIDE-FORMOTEROL 80/4.5 MCG INHALER INH SCH (10:28)
[2016-10-16] MEDS ORDERED: MAGNESIUM OXIDE 400 MG TAB PO SCH (12:00)
[2016-10-16] MEDS ORDERED: MIDAZOLAM HCL 2 MG/2 ML VIAL ONE (15:27)
[2016-10-16] MEDS ORDERED: PROT40TA PO (16:15)
[2016-10-16] MEDS ORDERED: PROPOFOL 200 MG/20 ML AMP IV ONE (16:35)
[2016-10-16] MEDS ORDERED: HYDROCORTISONE ACETATE 25 MG SUPP RECTAL SCH (21:00)
== END 2016-10-16 18:40 | disposition home or self-care (01) ==
LOC: NEPC 09:06 → INTOOBSV 11:45 → NEDA 11:45 → NEPHCDU 14:48
PROVIDERS: ADMIT Hospitalist; ATTEND Hospitalist
DX: D12.5 Benign neoplasm of sigmoid colon (principal); K57.30 Diverticulosis of large intestine without perforation or abscess without bleeding; K64.4 Residual hemorrhoidal skin tags; K64.8 Other hemorrhoids; Z80.9 Family history of malignant neoplasm, unspecified; K44.9 Diaphragmatic hernia without obstruction or gangrene; K31.9 Disease of stomach and duodenum, unspecified; I85.00 Esophageal varices without bleeding; K29.80 Duodenitis without bleeding; K29.50 Unspecified chronic gastritis without bleeding; K76.6 Portal hypertension; K92.1 Melena; J44.9 Chronic obstructive pulmonary disease, unspecified; R06.02 Shortness of breath; K76.0 Fatty (change of) liver, not elsewhere classified; D64.9 Anemia, unspecified; F10.10 Alcohol abuse, uncomplicated; F17.210 Nicotine dependence, cigarettes, uncomplicated
CPT/HCPCS: 00740; 00810; 43239; 45385; 74176; 80053; 85014; 85018; 85025; 85610; 85730; 86850; 86900; 86901; 87641; 88305; 88312; 94664; 96374; 99285; C9113; G0378; J2250; J7030; J7120

== ENCOUNTER 2017-03-02 20:03 | Emergency (ER) | payer OTHER ==
[~2017-03-02] VITALS: Ht 167.6 cm; Wt 78.0 kg
[~2017-03-02 20:03] MED LIST changes: +ASPI1TAB91 PO; -INDO25SU PO; +LISI10TA3 PO; +MAGN400T2 PO; +PROT40TA PO; +REME15TA PO; +SYMB80AE INH; +ZOCO10TA PO; -ZOFR4TAB PO
[2017-03-02 20:06] VITALS: BP 155/85; PULSE 100; RESP 18; TEMP 98.7; O2SAT 95
--- NOTE | 2017-03-02 20:52 | PD ---
Physical Exam Date Seen by Provider: Mar 02, 2017 Time Seen by Provider: 20:49 Data Data Last Documented VS Vital Signs Date Time Temp Pulse Resp B/P Pulse Ox O2 Delivery O2 Flow Rate FiO2 03/02/17 20:06 98.7 100 18 155/85 95 Room Air [facility] Supervised Visit with AYSHA: No Narrative Course 66 YO M with complaint of redness, 9/120 pain and swelling of bilateral feet x "a couple of weeks." Took his 's "water pill" which helped some. [facility] Vitals reviewed. Patient seen in triage, awaiting bed placement. Mable Prasad Mar 02, 2017 20:52
[2017-03-02 21:38] VITALS: BP 158/96; PULSE 95; RESP 19; O2SAT 95
[2017-03-02] MEDS ORDERED: MORPHINE SULFATE 4 MG/ML INJ IV PUSH ONE (21:45)
[2017-03-02] MEDS ORDERED: FUROSEMIDE 40 MG/4 ML VIAL IV PUSH ONE (21:45)
[2017-03-02] MEDS ORDERED: ONDANSETRON HCL 4 MG/2 ML VIAL IV PUSH ONE (21:45)
--- NOTE | 2017-03-02 21:55 | PD ---
HPI Chief Complaint: Edema Time Seen by Provider: 21:50 Travel History International Travel<30 days: No Contact w/Intl Traveler<30days: No Traveled to known affect area: No History of Present Illness HPI 66-year-old male that presents to the ED for evaluation of lower leg edema and pain. Per patient she's had this for the past 2 weeks. Per patient his been taking some of his 's "water pill" with minimal relief. Per patient she has no history of heart disease but he does have a history of heavy drinking. He does report having some shortness of breath with exertion as well as a history of COPD. Patient does appear to have some edema to his lower legs. Per patient the pain on his lower legs is 8 out of 10. Gets worse with ambulating. He also reports having redness on the lower legs bilaterally. No injuries. Has a history of high cholesterol. He denies any discolorations alert and erythema. No ulcerations. Has a history of MRSA. He denies any chest pain. No abdominal pain but he does state having more distention than his usual. He states that he drinks every day. He denies any other medical problems. He has not been able to see his doctor. Examine aspirin one a day. Denies any recent travel. PFSH Past Medical History Arthritis: Yes Asthma: No Blood Disorders: No Heart Rhythm Problems: No Cancer: No Cardiac Catheterization: No Cardiovascular Problems: Yes (HTN) High Cholesterol: No Chest Pain: No Congestive Heart Failure: No COPD: Yes Diabetes: No Endocrine: No Gastrointestinal Disorders: Yes Genitourinary: No Heparin Induced Thrombocytopen: No Hypertension: Yes Immune Disorder: No Musculoskeletal: No Neurologic: No Psychiatric: No Reproductive: No Respiratory: Yes (COPD) Sleep Apnea: No Thyroid Disease: No Past Surgical History Coronary Artery Bypass Graft: No Other Surgery: No Family History Family Myocardial Infarction: Yes (FATHER) Social History Alcohol Use: Yes (DAILY) Tobacco Use: Yes (1 PPD) Substance Use: No Allergies-Medications (Allergen,Severity, Reaction): Coded Allergies: *MDRO Multi-Drug Resistant Organism (Verified Adverse Reaction, Unknown, ) MRSA (leg-04/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) MRSA PCR (nares) POSITIVE - 10/16/16 Reported Meds & Prescriptions Reported Meds & Active Scripts Active Lortab (Hydrocodone-Acetaminophen) 5-325 Mg Tab 1 Tab PO Q6H PRN Potassium Chloride ER (Potassium Chloride) 10 Meq Cap 10 Meq PO DAILY 10 Days Furosemide 20 Mg Tab 20 Mg PO BID Bactrim DS (Sulfamethoxazole-Trimethoprim) 800-160 Mg Tab 1 Tab PO BID 14 Days Reported Magnesium Oxide 400 Mg Tab 400 Mg PO DAILY Lisinopril 10 Mg Tab 5 Mg PO DAILY Aspirin Adult Low Strength (Aspirin) 81 Mg Tabdr 81 Mg PO DAILY Remeron (Mirtazapine) 15 Mg Tab 15 Mg PO HS Symbicort Inh (Budesonide/Formoterol Fumarate) 80-4.5 Mcg/Act Aero 2 Puff INH Q12HR Rinse mouth after use Zocor (Simvastatin) 10 Mg Tab 5 Mg PO DAILY Ventolin Hfa 18 GM Inh (Albuterol Sulfate) 90 Mcg/Act Aer 2 Puff INH Q4H PRN Spiriva Handihaler (Tiotropium Inh) 18 Mcg Cap 18 Mcg INH HS 1 capsule = 18 mcg Review of Systems Except as stated in HPI: all other systems reviewed are Neg Physical Exam Narrative GENERAL: SKIN: Warm and dry. HEAD: Atraumatic. Normocephalic. EYES: Pupils equal and round. No scleral icterus. No injection or drainage. ENT: No nasal bleeding or discharge. Mucous membranes pink and moist. Tongue is midline. No uvula deviation. NECK: Trachea midline. No JVD. CARDIOVASCULAR: Regular rate and rhythm. No murmurs, S3, S4. RESPIRATORY: No accessory muscle use. Clear to auscultation. Breath sounds equal bilaterally. GASTROINTESTINAL: Abdomen soft, non-tender, very distended. Hepatic and splenic margins not palpable. MUSCULOSKELETAL: Extremities without clubbing, cyanosis, or edema. No obvious deformities. Patient has 1+ pitting edema on the lower extremities bilaterally. More noted on the foot as well as on the ankle. Patient does have areas of erythema on both feet bilaterally. Very tender to touch. 2+ pulses bilaterally on the lower legs and upper extremities. NEUROLOGICAL: Awake and alert. No obvious cranial nerve deficits. Motor grossly within normal limits. Five out of 5 muscle strength in the arms and legs. Normal speech. PSYCHIATRIC: Appropriate mood and affect; insight and judgment normal. Data Data Last Documented VS Vital Signs Date Time Temp Pulse Resp B/P Pulse Ox O2 Delivery O2 Flow Rate FiO2 03/02/17 21:38 95 19 158/96 95 Room Air 03/02/17 20:06 98.7 Orders Electrocardiogram (03/02/17 21:40) Complete Blood Count With Diff (03/02/17 21:40) Comprehensive Metabolic Panel (03/02/17 21:40) B-Type Natriuretic Peptide (03/02/17 21:40) Prothrombin Time / Inr (Pt) (03/02/17 21:40) Act Partial Throm Time (Ptt) (03/02/17 21:40) Magnesium (Mg) (03/02/17 21:40) Chest, Single Ap (03/02/17 21:40) Iv Access Insert/Monitor (03/02/17 21:40) Ecg Monitoring (03/02/17 21:40) Oximetry (03/02/17 21:40) Alcohol (Ethanol) (03/02/17 21:40) Furosemide Inj (Lasix Inj) (03/02/17 21:45) Morphine Inj (Morphine Inj) (03/02/17 21:45) Ondansetron Inj (Zofran Inj) (03/02/17 21:45) Us Leg Venous Doppler Bilat (03/02/17 ) Labs Laboratory Tests Test 03/02/17 21:40 White Blood Count 8.3 TH/MM3 Red Blood Count 3.87 MIL/MM3 Hemoglobin 10.4 GM/DL Hematocrit 32.9 % Mean Corpuscular Volume 84.8 FL Mean Corpuscular Hemoglobin 26.9 PG Mean Corpuscular Hemoglobin 31.7 % Concent Red Cell Distribution Width 17.5 % Platelet Count 177 TH/MM3 Mean Platelet Volume 8.2 FL Neutrophils (%) (Auto) 65.4 % Lymphocytes (%) (Auto) 23.4 % Monocytes (%) (Auto) 9.1 % Eosinophils (%) (Auto) 1.1 % Basophils (%) (Auto) 1.0 % Neutrophils # (Auto) 5.4 TH/MM3 Lymphocytes # (Auto) 2.0 TH/MM3 Monocytes # (Auto) 0.8 TH/MM3 Eosinophils # (Auto) 0.1 TH/MM3 Basophils # (Auto) 0.1 TH/MM3 CBC Comment DIFF FINAL Differential Comment Prothrombin Time 12.5 SEC Prothromb Time International 1.1 RATIO Ratio Activated Partial 28.8 SEC Thromboplast Time Sodium Level 140 MEQ/L Potassium Level 4.3 MEQ/L Chloride Level 107 MEQ/L Carbon Dioxide Level 27.0 MEQ/L Anion Gap 6 MEQ/L Blood Urea Nitrogen 3 MG/DL Creatinine 0.79 MG/DL Estimat Glomerular Filtration 99 ML/MIN Rate Random Glucose 98 MG/DL Calcium Level 8.2 MG/DL Magnesium Level 2.0 MG/DL Total Bilirubin 1.1 MG/DL Aspartate Amino Transf 263 U/L (AST/SGOT) Alanine Aminotransferase 72 U/L (ALT/SGPT) Alkaline Phosphatase 150 U/L B-Type Natriuretic Peptide 67 PG/ML Total Protein 10.1 GM/DL Albumin 3.0 GM/DL Ethyl Alcohol Level 308 MG/DL MDM Medical Decision Making Medical Screen Exam Complete: Yes Emergency Medical Condition: Yes Medical Record Reviewed: Yes Interpretation(s) CBC & BMP Diagram 03/02/17 21:40 LFTS with alkaline phosphatase pates phosphatase as well as AST elevated BNP WNL UA negative coags WNL alcohol in the 300s Last Impressions Chest X-Ray 03/02/17 2140 Signed Impressions: Service Date/Time: Thursday, March 02, 2017 21:58 - CONCLUSION: No acute disease. Oswaldo Barajas MD Lower Extremity Ultrasound 03/02/17 0000 Signed Impressions: Service Date/Time: Thursday, March 02, 2017 21:53 - CONCLUSION: No DVT. Oswaldo Barajas MD Differential Diagnosis CHF versus DVT versus cellulitis versus pitting edema versus cirrhosis versus hepatitis Narrative Course 66-year-old male that presents to the ED for evaluation of lower leg edema with erythema as well as shortness of breath with exertion. Patient was properly examined and was found to have signs and symptoms which appear to be concerning for possible cirrhosis versus CHF versus DVT versus cellulitis. Labs and imaging ordered. Patient was given IV pain medications. Labs and imaging showed no sign of acute disease. Case was discussed with my attending Dr. Ray who recommends outpatient treatment for possible cellulitis as well as edema. Patient will be given prescription for Bactrim, Lasix and potassium as well as Lortab for pain. Patient was instructed to keep legs elevated. Avoid alcohol products. See ED worsening symptoms. Follow with PCP. Diagnosis Primary Impression: Cellulitis Qualified Code: L03.119 - Cellulitis of lower extremity, unspecified laterality Additional Impression: Edema Qualified Code: R60.9 - Edema, unspecified type Patient Instructions: General Instructions, Narcotic given in the ED Departure Forms: Tests/Procedures, Work Release Enter return to work date: Mar 05, 2017 Additional Instructions: Take medications as prescribed. Follow-up with your doctor. Please currently or drinking. See ED for any worsening symptoms. Keep your legs elevated. Med/Other Pt SpecificInfo: Prescription(s) given Scripts Hydrocodone-Acetaminophen (Lortab)5-325 Mg Tab1 Tab PO Q6H PRN (PAIN) #15 TAB Prov:Ariel Ray MD 03/02/17 Potassium Chloride ER 10 Meq Cap10 Meq PO DAILY 10 Days Ref 0 Prov:Ariel Ray MD 03/02/17 Furosemide 20 Mg Tab20 Mg PO BID #20 TAB Ref 0 Prov:Ariel Ray MD 03/02/17 Sulfamethoxazole-Trimethoprim (Bactrim DS)800-160 Mg Tab1 Tab PO BID 14 Days Prov:Ariel Ray MD 03/02/17 Disposition: 01 DISCHARGE HOME Condition: Stable Irvin Malave Mar 02, 2017 21:54
[2017-03-02 22:08] LABS: AUTOMATED NEUTROPHIL # 5.4 TH/MM3 (1.8-7.7); BASOPHIL # 0.1 TH/MM3 (0-0.2); EOSINOPHIL # 0.1 TH/MM3 (0-0.4); EOSINOPHIL % 1.1 % (0.0-4.0); HEMATOCRIT 32.9 % (39.0-51.0); HEMO FLAGS DIFF FINAL; LYMPH % 23.4 % (9.0-44.0); MEAN CELL VOLUME 84.8 FL (80.0-100.0); MEAN CORPUSCULAR HEMOGLOBIN 26.9 PG (27.0-34.0); MEAN CORPUSCULAR HGB CONC 31.7 % (32.0-36.0); MONO % 9.1 % (0.0-8.0); NEUT % 65.4 % (16.0-70.0); PLATELET COUNT 177 TH/MM3 (150-450); RED BLOOD COUNT 3.87 MIL/MM3 (4.50-5.90); RED CELL DISTRIBUTION WIDTH 17.5 % (11.6-17.2); WHITE BLOOD COUNT 8.3 TH/MM3 (4.0-11.0)
--- NOTE | 2017-03-02 22:15 | RADRPT ---
EXAM DATE/TIME: 03/02/2017 21:58 [facility] COMPARISON: CHEST SINGLE AP, July 15, 2016, 8:25. INDICATIONS : Short of breath. MEDICAL HISTORY : None. SURGICAL HISTORY : None. ENCOUNTER: Initial ACUITY: 1 day PAIN SCORE: 0/10 LOCATION: Bilateral chest FINDINGS: A single view of the chest demonstrates the lungs to be symmetrically aerated without evidence of mas s, infiltrate or effusion. The cardiomediastinal contours are unremarkable. Osseous structures are intact. CONCLUSION: No acute disease. Oswaldo Barajas MD on March 02, 2017 at 22:14 Board Certified Radiologist. This report was verified electronically.
[2017-03-02 22:18] LABS: APTT (PATIENT) 28.8 SEC (24.3-30.1); INTERNATIONAL NORMALIZED RATIO 1.1 RATIO; PROTHROMBIN TIME - PATIENT 12.5 SEC (9.8-11.6)
--- NOTE | 2017-03-02 22:32 | RADRPT ---
EXAM DATE/TIME: 03/02/2017 21:53 [facility] COMPARISON: No previous studies available for comparison. INDICATIONS : Bilateral feet swelling. MEDICAL HISTORY : Hypertension. Arthritis. COPD. MRSA. SURGICAL HISTORY : None. ENCOUNTER: Initial ACUITY: 1 month PAIN SCORE: 7/10 LOCATION: Bilateral leg. TECHNIQUE: Venous ultrasound of the left and right leg was performed from the inguinal ligament to the proximal calf. Real-time, color Doppler and spectral tracing, compression and augmentation techniques were us ed. FINDINGS: RIGHT LEG: There is normal compressibility of the deep venous system from the inguinal region to the proximal ca lf. No echogenic clot is seen in the lumen of the common femoral, femoral, popliteal, and posterior tibial veins. There is a normal response of the venous system to proximal and distal augmentation an d respiration. LEFT LEG: There is normal compressibility of the deep venous system from the inguinal region to the proximal ca lf. No echogenic clot is seen in the lumen of the common femoral, femoral, popliteal, and posterior tibial veins. There is a normal response of the venous system to proximal and distal augmentation an d respiration. CONCLUSION: No DVT. Oswaldo Barajas MD on March 02, 2017 at 22:30 Board Certified Radiologist. This report was verified electronically.
[2017-03-02 22:34] LABS: ALT (GPT) 72 U/L (12-78); ANION GAP 6 MEQ/L (5-15); AST (GOT) 263 U/L (15-37); BLOOD UREA NITROGEN 3 MG/DL (7-18); CHLORIDE 107 MEQ/L (98-107); GLOMERULAR FILTRATION RATE 99 ML/MIN (>89); POTASSIUM 4.3 MEQ/L (3.5-5.1); SODIUM (NA) 140 MEQ/L (136-145)
[2017-03-02 22:38] LABS: ALKALINE PHOSPHATASE 150 U/L (45-117); TOTAL BILIRUBIN ADULT 1.1 MG/DL (0.2-1.0)
[2017-03-02] MEDS ORDERED: FURO20TA PO (23:00)
[2017-03-02] MEDS ORDERED: HYDR-3533 PO (23:00)
[2017-03-02] MEDS ORDERED: BACT800T5 PO (23:00)
[2017-03-02] MEDS ORDERED: POTA10CA PO (23:00)
--- NOTE | 2017-03-03 14:34 | EKG ---
Date Performed: 03/02/2017 Time Performed: 22:09:08 PTAGE: 66 years EKG: SINUS TACHYCARDIA Since previous tracing, no significant change noted ABNORMAL RHYTHM ECG PREVIOUS TRACING : 07/15/2016 15.17 DOCTOR: Noam Rivera Interpretating Date/Time 03/03/2017 14:32:28
== END 2017-03-02 23:44 | disposition home or self-care (01) ==
LOC: NEPE 20:03
DX: L03.119 Cellulitis of unspecified part of limb (principal); R60.0 Localized edema; R06.02 Shortness of breath; R14.0 Abdominal distension (gaseous); R94.31 Abnormal electrocardiogram [ECG] [EKG]; I10 Essential (primary) hypertension; E78.00 Pure hypercholesterolemia, unspecified; F17.200 Nicotine dependence, unspecified, uncomplicated; Z79.899 Other long term (current) drug therapy; Z87.09 Personal history of other diseases of the respiratory system; Z86.79 Personal history of other diseases of the circulatory system; Z87.19 Personal history of other diseases of the digestive system; Z87.39 Personal history of other diseases of the musculoskeletal system and connective tissue; Z86.14 Personal history of Methicillin resistant Staphylococcus aureus infection
CPT/HCPCS: 71010; 80053; 80307; 83735; 83880; 85025; 85610; 85730; 93005; 93970; 96374; 96375; 99285; J1940; J2270; J2405

== ENCOUNTER 2017-07-09 16:42 | Emergency (ER) | payer OTHER ==
[~2017-07-09] VITALS: Ht 167.6 cm; Wt 74.0 kg
[~2017-07-09 16:42] MED LIST changes: -ASPI1TAB91 PO; +ASPI81TA16 PO; +BACT800T5 PO; +FURO20TA PO; +HYDR-3533 PO; +POTA10CA PO; -PROT40TA PO
[2017-07-09 16:43] VITALS: BP 142/85; PULSE 106; RESP 20; TEMP 98.8; O2SAT 97
--- NOTE | 2017-07-09 17:43 | RADRPT ---
EXAM DATE/TIME: 07/09/2017 17:28 [facility] COMPARISON: CHEST SINGLE AP, March 02, 2017, 21:58. INDICATIONS : Short of breath. Pain. Congestion. MEDICAL HISTORY : Tobacco smoker. SURGICAL HISTORY : None. ENCOUNTER: Initial ACUITY: 3 days PAIN SCORE: 7/10 LOCATION: Bilateral chest FINDINGS: Lungs are hyperexpanded. There is questionable faint focal parenchymal opacity of the right mid to up per lung. This could represent focal pneumonia or a developing mass. Lungs otherwise appear clear. No pleural effusion. No pneumothorax. Stable, normal heart size. CONCLUSION: Hyperexpanded lungs. Questionable parenchymal opacity of the right upper lobe. A noncontrast chest CT is recommended. Oswaldo Nuñez MD on July 09, 2017 at 17:40 Board Certified Radiologist. This report was verified electronically.
[2017-07-09 17:45] LABS: BASOPHIL # 0.1 TH/MM3 (0-0.2); BASOPHIL % 1.4 % (0.0-2.0); EOSINOPHIL # 0.1 TH/MM3 (0-0.4); EOSINOPHIL % 1.1 % (0.0-4.0); HEMATOCRIT 31.7 % (39.0-51.0); HEMO FLAGS DIFF FINAL; LYMPH % 21.3 % (9.0-44.0); LYMPHOCYTE # 1.4 TH/MM3 (1.0-4.8); MEAN CELL VOLUME 80.3 FL (80.0-100.0); MEAN CORPUSCULAR HEMOGLOBIN 25.7 PG (27.0-34.0); NEUT % 63.2 % (16.0-70.0); PLATELET COUNT 220 TH/MM3 (150-450); RED BLOOD COUNT 3.95 MIL/MM3 (4.50-5.90); RED CELL DISTRIBUTION WIDTH 20.7 % (11.6-17.2); WHITE BLOOD COUNT 6.4 TH/MM3 (4.0-11.0)
[2017-07-09 17:52] LABS: ALT (GPT) 44 U/L (12-78); ANION GAP 9 MEQ/L (5-15); AST (GOT) 102 U/L (15-37); BICARBONATE 24.2 MEQ/L (21.0-32.0); BLOOD UREA NITROGEN 8 MG/DL (7-18); CHLORIDE 105 MEQ/L (98-107); GLOMERULAR FILTRATION RATE 84 ML/MIN (>89); MAGNESIUM 1.8 MG/DL (1.5-2.5); POTASSIUM 4.2 MEQ/L (3.5-5.1); SODIUM (NA) 138 MEQ/L (136-145)
[2017-07-09 17:56] LABS: ALKALINE PHOSPHATASE 130 U/L (45-117); CREATINE KINASE 133 U/L (39-308); TOTAL BILIRUBIN ADULT 1.5 MG/DL (0.2-1.0)
[2017-07-09 18:08] LABS: CKMB 1.9 NG/ML (0.5-3.6)
--- NOTE | 2017-07-09 19:00 | RADRPT ---
EXAM DATE/TIME: 07/09/2017 18:34 [facility] COMPARISON: No previous studies available for comparison. INDICATIONS : Weakness,short of breath for the last two days,pains RADIATION DOSE: 4.06 CTDIvol (mGy) MEDICAL HISTORY : Hypertension. Cardiovascular disease SURGICAL HISTORY : None. ENCOUNTER: Initial ACUITY: 1 day PAIN SCALE: 8/10 LOCATION: chest TECHNIQUE: Volumetric scanning of the chest was performed. Using automated exposure control and adjustment of t he mA and/or kV according to patient size, radiation dose was kept as low as reasonably achievable to obtain optimal diagnostic quality images. DICOM format image data is available electronically for r eview and comparison. Follow-up recommendations for detected pulmonary nodules are based at a minimum on nodule size and pa tient risk factors according to Fleischner Society Guidelines. FINDINGS: LUNGS: Emphysematous changes are seen within the apices bilaterally. Calcified granuloma noted within the ri ght lung base. No acute infiltrate. No worrisome nodules. PLEURAE: There is no pleural thickening or pleural effusion. MEDIASTINUM: Small homogeneously calcified lymph nodes involving the middle mediastinum and left hilum. No adenopa thy. Heart is normal in size. No pericardial effusion. AXILLAE: Within normal limits. No lymphadenopathy. MUSCULOSKELETAL: Within normal limits for patient age. MISCELLANEOUS: The visualized upper abdominal organs demonstrate no acute abnormality. CONCLUSION: 1. No acute cardio pulmonary disease. 2. Emphysematous changes. 3. Prior granulomatous disease. Kike Lanier Jr., MD on July 09, 2017 at 18:56 Board Certified Radiologist. This report was verified electronically.
--- NOTE | 2017-07-09 19:55 | PD ---
HPI Chief Complaint: Respiratory Symptoms Time Seen by Provider: 19:34 Travel History International Travel<30 days: No Contact w/Intl Traveler<30days: No Traveled to known affect area: No History of Present Illness HPI 66yo M with COPD and chronic alcohol abuse presents to the ED with c/o generalized pain for 3 days. Also increased coughing and chest pain only with cough. Feels a little sob but does not want treatment and is not wheezing. Post tussive vomiting. [place] warm at home but no documented fever. Denies any n /v, abdominal pain, focal weakness or numbness. Pt last drank alcohol at 12pm yesterday. PFSH Past Medical History Arthritis: Yes Asthma: No Blood Disorders: No Heart Rhythm Problems: No Cancer: No Cardiac Catheterization: No High Cholesterol: No Chest Pain: No Congestive Heart Failure: No COPD: Yes Diabetes: No Endocrine: No Gastrointestinal Disorders: Yes Genitourinary: No Heparin Induced Thrombocytopen: No Hypertension: Yes Immune Disorder: No Musculoskeletal: No Neurologic: No Psychiatric: No Reproductive: No Respiratory: Yes (COPD) Sleep Apnea: No Thyroid Disease: No Past Surgical History Coronary Artery Bypass Graft: No Other Surgery: No Social History Alcohol Use: Yes (DAILY) Tobacco Use: Yes (1 PPD) Substance Use: No Allergies-Medications (Allergen,Severity, Reaction): Coded Allergies: *MDRO Multi-Drug Resistant Organism (Verified Adverse Reaction, Unknown, ) MRSA (leg-04/30/16) MRSA PCR (nares) POSITIVE - 10/16/16 Reported Meds & Prescriptions Reported Meds & Active Scripts Active Lortab (Hydrocodone-Acetaminophen) 5-325 Mg Tab 1 Tab PO Q6H PRN Potassium Chloride ER (Potassium Chloride) 10 Meq Cap 10 Meq PO DAILY 10 Days Furosemide 20 Mg Tab 20 Mg PO BID Bactrim DS (Sulfamethoxazole-Trimethoprim) 800-160 Mg Tab 1 Tab PO BID 14 Days Reported Magnesium Oxide 400 Mg Tab 400 Mg PO DAILY Lisinopril 10 Mg Tab 5 Mg PO DAILY Aspirin Adult Low Strength (Aspirin) 81 Mg Tabdr 81 Mg PO DAILY Remeron (Mirtazapine) 15 Mg Tab 15 Mg PO HS Symbicort Inh (Budesonide/Formoterol Fumarate) 80-4.5 Mcg/Act Aero 2 Puff INH Q12HR Rinse mouth after use Zocor (Simvastatin) 10 Mg Tab 5 Mg PO DAILY Ventolin Hfa 18 GM Inh (Albuterol Sulfate) 90 Mcg/Act Aer 2 Puff INH Q4H PRN Spiriva Handihaler (Tiotropium Inh) 18 Mcg Cap 18 Mcg INH HS 1 capsule = 18 mcg Review of Systems Except as stated in HPI: all other systems reviewed are Neg Physical Exam Narrative GENERAL: 66yo M in mild distress. SKIN: Focused skin assessment warm/dry. HEAD: Atraumatic. Normocephalic. EYES: Pupils equal and round. No scleral icterus. No injection or drainage. ENT: No nasal bleeding or discharge. Mucous membranes pink and moist. NECK: Trachea midline. No JVD. CARDIOVASCULAR: Regular rate and rhythm. No murmur appreciated. RESPIRATORY: No accessory muscle use. Clear to auscultation. Breath sounds equal bilaterally. GASTROINTESTINAL: Abdomen soft, non-tender, nondistended. MUSCULOSKELETAL: No obvious deformities. No clubbing. No cyanosis. No edema. NEUROLOGICAL: Awake and alert. No obvious cranial nerve deficits. Motor grossly within normal limits. Normal speech. +Tongue fasciculation. +Mild upper extremity tremors. PSYCHIATRIC: Appropriate mood and affect; insight and judgment normal. Data Data Last Documented VS Vital Signs Date Time Temp Pulse Resp B/P (MAP) Pulse Ox O2 Delivery O2 Flow Rate FiO2 07/09/17 16:43 98.8 106 20 142/85 (104) 97 Room Air Orders Orders Complete Blood Count With Diff (07/09/17 16:57) Comprehensive Metabolic Panel (07/09/17 16:57) Magnesium (Mg) (07/09/17 16:57) Ckmb (Isoenzyme) Profile (07/09/17 16:57) Troponin I (07/09/17 16:57) Chest, Pa & Lat (07/09/17 16:57) Ct Thorax/ Chest Wo Iv Contras (07/09/17 ) CKMB (07/09/17 17:20) CKMB% (07/09/17 17:20) Influenzae A/B Antigen (07/09/17 19:52) Lorazepam (Ativan) (07/09/17 20:00) Electrocardiogram (07/09/17 ) Labs Laboratory Tests Test 07/09/17 17:20 White Blood Count 6.4 TH/MM3 Red Blood Count 3.95 MIL/MM3 Hemoglobin 10.1 GM/DL Hematocrit 31.7 % Mean Corpuscular Volume 80.3 FL Mean Corpuscular Hemoglobin 25.7 PG Mean Corpuscular Hemoglobin Concent 32.0 % Red Cell Distribution Width 20.7 % Platelet Count 220 TH/MM3 Mean Platelet Volume 7.6 FL Neutrophils (%) (Auto) 63.2 % Lymphocytes (%) (Auto) 21.3 % Monocytes (%) (Auto) 13.0 % Eosinophils (%) (Auto) 1.1 % Basophils (%) (Auto) 1.4 % Neutrophils # (Auto) 4.0 TH/MM3 Lymphocytes # (Auto) 1.4 TH/MM3 Monocytes # (Auto) 0.8 TH/MM3 Eosinophils # (Auto) 0.1 TH/MM3 Basophils # (Auto) 0.1 TH/MM3 CBC Comment DIFF FINAL Differential Comment Blood Urea Nitrogen 8 MG/DL Creatinine 0.91 MG/DL Random Glucose 101 MG/DL Total Protein 9.5 GM/DL Albumin 3.2 GM/DL Calcium Level 8.8 MG/DL Magnesium Level 1.8 MG/DL Alkaline Phosphatase 130 U/L Aspartate Amino Transf (AST/SGOT) 102 U/L Alanine Aminotransferase (ALT/SGPT) 44 U/L Total Bilirubin 1.5 MG/DL Sodium Level 138 MEQ/L Potassium Level 4.2 MEQ/L Chloride Level 105 MEQ/L Carbon Dioxide Level 24.2 MEQ/L Anion Gap 9 MEQ/L Estimat Glomerular Filtration Rate 84 ML/MIN Total Creatine Kinase 133 U/L Creatine Kinase MB 1.9 NG/ML Troponin I LESS THAN 0.02 NG/ML [facility] Medical Decision Making Medical Screen Exam Complete: Yes Emergency Medical Condition: Yes Interpretation(s) EKG: NSR 89bpm. Normal axis. ST sepressionV2-V6. TWI III. QTc mildly elevated at 463ms. Differential Diagnosis alcohol withdrawal vs. influenza vs. pneumonia Narrative Course 66yo M with chronic alcohol abuse and COPD here with c/o generalized pain. Pt does appear tremulous with tongue fasciculation and mild resting tremor. Lungs are clear and even though pt said he has COPD, he does not want any treatments right now. Saturating at 97% on RA. Labs reviewed, no leukocytosis. H/H low at 10.1/31.7 which is baseline. Troponin negative. Pt has chronically elevated bilirubin and AST. He is a chronic alcoholic. No abdominal pain on exam. CXR showed questionable parenchymal opacity in right upper lobe and noncontrast CT chest recommended. CT chest showed no acute cardiopulmonary disease. Emphysematous changes. Prior granulomatous disease. Influenza negative. Pt given ativan for tremors. Pt reevaluated at bedside and states he feels much better. Pt is no longer tremulous. There are some ST depressions on EKG but pt has no chest pain and troponin is negative. Will have pt follow up with primary care at this time. Return precautions given. Diagnosis Primary Impression: Alcohol withdrawal Qualified Codes: F10.239 - Alcohol dependence with withdrawal, unspecified Patient Instructions: General Instructions Departure Forms: Tests/Procedures Additional Instructions: Please follow up with your primary care physician in 3-7 days. Return precautions given. Med/Other Pt SpecificInfo: Prescription(s) given Scripts Acetaminophen (Tylenol) 325 Mg Tab 650 MG PO Q6H Y for PAIN SCALE 1 TO 4, #20 TAB 0 Refills Prov: Oma Estrada DO 07/09/17 Disposition: 01 DISCHARGE HOME Condition: Stable Oma Estrada DO Jul 09, 2017 19:55
[2017-07-09] MEDS ORDERED: LORazepam 1 MG TAB PO ONE (20:00)
[2017-07-09] MEDS ORDERED: TYLE325T PO (22:18)
--- NOTE | 2017-07-10 05:16 | EKG ---
Date Performed: 07/09/2017 Time Performed: 20:09:52 PTAGE: 66 years EKG: Sinus rhythm INCOMPLETE RIGHT BUNDLE BRANCH BLOCK Nonspecific ST and T wave abnormalities ABNORMAL ECG No signifi cant change from prior electrocardiogram. PREVIOUS TRACING : 03/02/2017 22.09 DOCTOR: Roge San Interpretating Date/Time 07/10/2017 05:15:32
== END 2017-07-09 22:27 | disposition home or self-care (01) ==
LOC: NEPD 16:42
DX: F10.239 Alcohol dependence with withdrawal, unspecified (principal); R05 Cough; R06.02 Shortness of breath; R25.1 Tremor, unspecified; R94.31 Abnormal electrocardiogram [ECG] [EKG]; I10 Essential (primary) hypertension; F17.200 Nicotine dependence, unspecified, uncomplicated; Z79.899 Other long term (current) drug therapy; Z87.09 Personal history of other diseases of the respiratory system; Z87.19 Personal history of other diseases of the digestive system
CPT/HCPCS: 71020; 71250; 80053; 82550; 82552; 83735; 84484; 85025; 87804; 93005

== ENCOUNTER 2017-09-11 17:02 | Inpatient (IN) | payer OTHER ==
[~2017-09-11] VITALS: Ht 170.2 cm; Wt 93.5 kg
[2017-09-11] VITALS (15 sets, daily range): BP systolic 86–105; BP diastolic 50–64; PULSE 94–124; RESP 17–30; TEMP 97.4–98.2; O2SAT 93–100
[~2017-09-11 17:02] MED LIST changes: +TYLE325T PO
[2017-09-11] MEDS ORDERED: SODIUM CHLOR 0.9% 1000 ML INJ 1,000 ML IV ONE ×2 (17:15)
[2017-09-11] MEDS ORDERED: PANTOPRAZOLE SODIUM 40 MG VIAL IV PUSH ONE (17:15)
[2017-09-11] MEDS ORDERED: OCTREOTIDE INJ 500 MCG in SODIUM CHLORID 0.9% 500 ML INJ 500 ML IV ONE (17:15)
[2017-09-11] MEDS ORDERED: ONDANSETRON HCL 4 MG/2 ML VIAL IV ONE (17:15)
--- NOTE | 2017-09-11 17:31 | PD ---
HPI Chief Complaint: GI Complaint Time Seen by Provider: 17:06 Travel History International Travel<30 days: No Contact w/Intl Traveler<30days: No Traveled to known affect area: No History of Present Illness HPI This patient is brought in by paramedics emergently. He is critically ill. He is a long-time alcoholic with liver cirrhosis. [facility] is [facility]. He denies ever having endoscopy. He drinks heavily on a daily basis. He denies illicit drug use. He's been having melena for several days. He started having hematemesis today. He started vomiting up bright red blood. Paramedics estimated 500 cc of bright red blood on the ground at home. He arrives with a pulse of 110 and a blood pressure 100 systolic. Symptoms are severe. No alleviating factors. Symptoms exacerbated by his alcoholism and cirrhosis. PFSH Past Medical History Hx Anticoagulant Therapy: Yes Arthritis: Yes Asthma: No Blood Disorders: No Heart Rhythm Problems: No Cancer: No Cardiac Catheterization: No Cardiovascular Problems: Yes (HTN) High Cholesterol: No Chest Pain: No Congestive Heart Failure: No COPD: Yes Diabetes: No Endocrine: No Gastrointestinal Disorders: Yes Genitourinary: No Heparin Induced Thrombocytopen: No Hypertension: Yes Immune Disorder: No Musculoskeletal: No Neurologic: No Psychiatric: No Reproductive: No Respiratory: Yes (COPD) Sleep Apnea: No Thyroid Disease: No Past Surgical History Coronary Artery Bypass Graft: No Other Surgery: No Social History Alcohol Use: Yes (DAILY) Tobacco Use: Yes (1 PPD) Substance Use: No Allergies-Medications (Allergen,Severity, Reaction): Coded Allergies: *MDRO Multi-Drug Resistant Organism (Verified Adverse Reaction, Unknown, ) MRSA (leg-04/30/16) MRSA PCR (nares) POSITIVE - 10/16/16 Reported Meds & Prescriptions Reported Meds & Active Scripts Active Tylenol (Acetaminophen) 325 Mg Tab 650 Mg PO Q6H PRN Lortab (Hydrocodone-Acetaminophen) 5-325 Mg Tab 1 Tab PO Q6H PRN Potassium Chloride ER (Potassium Chloride) 10 Meq Cap 10 Meq PO DAILY 10 Days Furosemide 20 Mg Tab 20 Mg PO BID Bactrim DS (Sulfamethoxazole-Trimethoprim) 800-160 Mg Tab 1 Tab PO BID 14 Days Reported Magnesium Oxide 400 Mg Tab 400 Mg PO DAILY Lisinopril 10 Mg Tab 5 Mg PO DAILY Aspirin Adult Low Strength (Aspirin) 81 Mg Tabdr 81 Mg PO DAILY Remeron (Mirtazapine) 15 Mg Tab 15 Mg PO HS Symbicort Inh (Budesonide/Formoterol Fumarate) 80-4.5 Mcg/Act Aero 2 Puff INH Q12HR Rinse mouth after use Zocor (Simvastatin) 10 Mg Tab 5 Mg PO DAILY Ventolin Hfa 18 GM Inh (Albuterol Sulfate) 90 Mcg/Act Aer 2 Puff INH Q4H PRN Spiriva Handihaler (Tiotropium Inh) 18 Mcg Cap 18 Mcg INH HS 1 capsule = 18 mcg Review of Systems General / Constitutional: No: Fever Eyes: No: Visual changes HENT: No: Headaches Cardiovascular: No: Chest Pain or Discomfort Respiratory: No: Shortness of Breath Gastrointestinal: Positive: Nausea, Vomiting, Hematemesis, No: Abdominal Pain Genitourinary: No: Dysuria Musculoskeletal: No: Pain Skin: No Rash Neurologic: No: Weakness Psychiatric: Positive: Substance Abuse, No: Depression Endocrine: No: Polydipsia Hematologic/Lymphatic: No: Easy Bruising Physical Exam Narrative GENERAL: Ill-appearing patient with ascites vomiting up blood . SKIN: Focused skin assessment reveals no rash and nodules. Skin is pale and dry. HEAD: Atraumatic. Normocephalic. EYES: Pupils equal and round. No scleral icterus. No injection or drainage. ENT: No nasal bleeding or discharge. Mucous membranes pink and moist. NECK: Trachea midline. No JVD. CARDIOVASCULAR: Regular rate and rhythm. No murmur appreciated. RESPIRATORY: No accessory muscle use. Clear to auscultation. Breath sounds equal bilaterally. GASTROINTESTINAL: Abdomen soft, has abdominal distention with ascites but nontender. MUSCULOSKELETAL: No obvious deformities. No clubbing. No cyanosis. No edema. NEUROLOGICAL: Awake and alert. No obvious cranial nerve deficits. Motor grossly within normal limits. Normal speech. PSYCHIATRIC: Anxious mood and affect; insight and judgment poor Data Data Last Documented VS Vital Signs Date Time Temp Pulse Resp B/P (MAP) Pulse Ox O2 Delivery O2 Flow Rate FiO2 09/11/17 18:00 99 Ventilator 100 09/11/17 17:37 97.9 103 24 104/55 09/11/17 17:12 3.00 Orders Orders Type And Screen (09/11/17 17:15) Ondansetron Inj (Zofran Inj) (09/11/17 17:15) Sodium Chlor 0.9% 1000 Ml Inj (Ns 1000 M (09/11/17 17:15) Sodium Chlor 0.9% 1000 Ml Inj (Ns 1000 M (09/11/17 17:15) Pantoprazole Inj (Protonix Inj) (09/11/17 17:15) Octreotide Inj (Sandostatin Inj) (09/11/17 17:15) Complete Blood Count With Diff (09/11/17 17:12) Comprehensive Metabolic Panel (09/11/17 17:12) Prothrombin Time / Inr (Pt) (09/11/17 17:12) Act Partial Throm Time (Ptt) (09/11/17 17:12) Collection Teller / Telemetry GUCCI.Q8H (09/11/17 17:12) Phytonadione Inj (Aquamephyton Inj) (09/11/17 17:45) Chest, Single Ap (09/11/17 ) Etomidate Inj (Amidate Inj) (09/11/17 17:48) Succinylcholine Inj (Quelicin Inj) (09/11/17 17:50) Propofol 500 Mg/50 Ml Inj (Diprivan 500 (09/11/17 17:55) Red Blood Cells (Rbc) (09/11/17 17:15) Propofol 1000 Mg/100 Ml Inj (Diprivan 10 (09/11/17 18:15) ^ Infusion (09/11/17 18:07) RASS (09/11/17 18:07) Neurological Rass Scale GUCCI.Q2H (09/11/17 18:07) Arterial Blood Gas (Abg) (09/11/17 ) Phytonadione Inj (Vitamin K Inj) (09/11/17 19:00) Admit Order (Ed Use Only) (09/11/17 18:20) Labs Laboratory Tests Test 09/11/17 17:20 White Blood Count 7.7 TH/MM3 Red Blood Count 2.47 MIL/MM3 Hemoglobin 6.1 GM/DL Hematocrit 19.5 % Mean Corpuscular Volume 78.7 FL Mean Corpuscular Hemoglobin 24.6 PG Mean Corpuscular Hemoglobin Concent 31.3 % Red Cell Distribution Width 22.3 % Platelet Count 213 TH/MM3 Mean Platelet Volume 7.4 FL Neutrophils (%) (Auto) 66.6 % Lymphocytes (%) (Auto) 18.9 % Monocytes (%) (Auto) 13.4 % Eosinophils (%) (Auto) 0.4 % Basophils (%) (Auto) 0.7 % Neutrophils # (Auto) 5.1 TH/MM3 Lymphocytes # (Auto) 1.5 TH/MM3 Monocytes # (Auto) 1.0 TH/MM3 Eosinophils # (Auto) 0.0 TH/MM3 Basophils # (Auto) 0.1 TH/MM3 CBC Comment DIFF FINAL Differential Comment Prothrombin Time 14.2 SEC Prothromb Time International Ratio 1.4 RATIO Activated Partial Thromboplast Time 28.6 SEC MDM Medical Decision Making Medical Screen Exam Complete: Yes Emergency Medical Condition: Yes Medical Record Reviewed: Yes Differential Diagnosis Gastric ulcer, esophageal varices, hemorrhagic shock Narrative Course I have reviewed the patient's electronic medical record. Patient was here in July and had a hemoglobin of 10 platelet count 220 This patient arrives critically ill. We have placed a total of 4 IVs Gave him 2 L normal saline IV bolus I gave him IV Zofran and IV Protonix I'm starting an octreotide drip and giving a dose of vitamin K I've ordered 4 units of emergency release blood and I'm starting to transfuse as we await blood counts CBC shows hemoglobin of 6.1 Metabolic profile is pending LFTs is pending INR is 1.4 Extended cardiac monitoring reveals sinus tachycardia Patient started gagging on his hematemesis and losing ability to control airway. I've intubated him to control his airway This was emergently necessary INTUBATION: The patient was put in optimal position for the procedure. Rapid sequence intubation was initiated by me using 30 milligrams of etomidate IV and 100 milligrams of succinylcholine IV. The patient was intubated with a 7.5 cuffed endotracheal tube. Tube placement was confirmed by visualization of the tube and balloon passing through the cords, capnometry and subsequent chest x- ray. Breath sounds were equal and well aerated bilaterally postintubation. No breath sounds over stomach. Patient tolerated procedure well. Saturations To 100%. Chest x-ray shows good tube placement I reviewed the case in detail with training professional Dr. Marino who is come down to the emergency room and seen the patient. He [place] the [place] [facility] [place] Patient is critically ill I spoke in the GI physician Dr. León will be a linux consultant Critical Care Narrative Aggregate critical care time was 83 minutes. Time to perform other separately billable procedures was not included in the critical care time. My time did not include minutes spent treating any other patients simultaneously or on activities that did not directly contribute to the patient's treatment. The services I provided to this patient were to treat and/or prevent clinically significant deterioration that could result in: Cardiopulmonary arrest, hemorrhagic shock, I provided critical care services requiring my management, as noted below: Chart data review, documentation time, medication orders and management, vital sign assessments/reviewing monitor data, ordering and reviewing lab tests, ordering and interpreting/reviewing x-rays and diagnostic studies, care of the patient and discussion of the patient with the admitting physicians. Diagnosis Primary Impression: Hemorrhagic shock Additional Impressions: Airway compromise GI bleed Qualified Codes: K92.2 - Gastrointestinal hemorrhage, unspecified Admitting Information Admitting Physician Requests: it Jacques Napoles MD Sep 11, 2017 17:31
[2017-09-11] MEDS ORDERED: PHYTONADIONE INJ 1 MG/0.5 ML AMP SQ ONE (17:45)
[2017-09-11] MEDS ORDERED: ETOMIDATE 40 MG/20 ML VIAL ONE (17:48)
[2017-09-11] MEDS ORDERED: SUCCINYLCHOLINE CHLORIDE 200 MG/10 ML VIAL ONE (17:50)
[2017-09-11] MEDS ORDERED: PROPOFOL 500 MG/50 ML INJ 50 ML ONE (17:55)
[2017-09-11 18:10] LABS: AUTOMATED NEUTROPHIL # 5.1 TH/MM3 (1.8-7.7); BASOPHIL # 0.1 TH/MM3 (0-0.2); BASOPHIL % 0.7 % (0.0-2.0); EOSINOPHIL % 0.4 % (0.0-4.0); LYMPH % 18.9 % (9.0-44.0); LYMPHOCYTE # 1.5 TH/MM3 (1.0-4.8); MEAN CELL VOLUME 78.7 FL (80.0-100.0); MEAN CORPUSCULAR HEMOGLOBIN 24.6 PG (27.0-34.0); MEAN CORPUSCULAR HGB CONC 31.3 % (32.0-36.0); MEAN PLATELET VOLUME 7.4 FL (7.0-11.0); MONO % 13.4 % (0.0-8.0); NEUT % 66.6 % (16.0-70.0); PLATELET COUNT 213 TH/MM3 (150-450); RED BLOOD COUNT 2.47 MIL/MM3 (4.50-5.90); RED CELL DISTRIBUTION WIDTH 22.3 % (11.6-17.2); WHITE BLOOD COUNT 7.7 TH/MM3 (4.0-11.0)
[2017-09-11 18:12] LABS: HEMATOCRIT 19.5 % (39.0-51.0); HEMOGLOBIN 6.1 GM/DL (13.0-17.0)
[2017-09-11 18:19] LABS: INTERNATIONAL NORMALIZED RATIO 1.4 RATIO; PROTHROMBIN TIME - PATIENT 14.2 SEC (9.8-11.6)
--- NOTE | 2017-09-11 18:27 | RADRPT ---
EXAM DATE/TIME: 09/11/2017 17:51 [place] COMPARISON: CT THORAX W/O CONTRAST, July 09, 2017, 18:34. INDICATIONS : Post intubation. MEDICAL HISTORY : Unobtainable. SURGICAL HISTORY : Unobtainable. ENCOUNTER: Initial ACUITY: 1 day PAIN SCORE: Non-responsive. LOCATION: Bilateral chest FINDINGS: Mild infiltrate is developing of the left lung base. There is a tiny left pleural effusion. No pneumo thorax. Heart size stable, upper limits of normal. Patient is now intubated. Endotracheal tube tip is approximately 4 cm above the yoli. There is a ne w nasogastric tube coursing into the stomach. CONCLUSION: 1. Developing left base pneumonia and tiny effusion. Right lung clear. 2. Appropriate position of the endotracheal tube and nasogastric tube. Oswaldo Nuñez MD on September 11, 2017 at 18:23 Board Certified Radiologist. This report was verified electronically.
[2017-09-11 18:47] LABS: ALBUMIN 2.2 GM/DL (3.4-5.0); BICARBONATE 16.5 MEQ/L (21.0-32.0); CALCIUM 7.2 MG/DL (8.5-10.1); CREATININE 0.88 MG/DL (0.60-1.30); TOTAL BILIRUBIN ADULT 1.1 MG/DL (0.2-1.0); TOTAL PROTEIN 6.7 GM/DL (6.4-8.2)
[2017-09-11] MEDS: PROPOFOL 1000 MG/100 ML INJ 100 ML IV PRN ×2 (18:49→21:31)
[2017-09-11] MEDS ORDERED: ONDANSETRON HCL 4 MG/2 ML VIAL IV PUSH PRN (19:00)
[2017-09-11] MEDS: PANTOPRAZOLE SODIUM 40 MG VIAL IV PUSH SCH (19:00)
[2017-09-11] MEDS ORDERED: cefTRIAXone INJ 1,000 MG in SODIUM CHLORIDE 0.9% INJ 100 ML IV SCH (19:00)
[2017-09-11] MEDS ORDERED: MORPHINE SULFATE 4 MG/ML INJ IV PUSH PRN (19:00)
[2017-09-11] MEDS ORDERED: PHYTONADIONE 10 MG/ML VIAL SQ ONE (19:00)
[2017-09-11] MEDS ORDERED: ACETAMINOPHEN 325 MG TAB PO PRN (19:00)
[2017-09-11] MEDS ORDERED: CHLORHEXIDINE GLUCONATE 2 % 1 PACK (2 CLOTHS) TOP PRN (19:00)
[2017-09-11] MEDS ORDERED: SODIUM CHLORIDE 0.9% FLUSH 10 ML FLUSH IV FLUSH PRN (19:00)
[2017-09-11] MEDS ORDERED: MISCELLANEOUS NURSING INFORMATION XX SCH (19:00)
[2017-09-11] MEDS ORDERED: BISACODYL 10 MG SUPP RECTAL PRN (19:00)
[2017-09-11] MEDS ORDERED: LACTULOSE SYRUP 20 GM/30 ML CUP PO PRN (19:00)
[2017-09-11] MEDS ORDERED: MAGNESIUM HYDROXIDE SUSP 30 ML CUP PO PRN (19:00)
[2017-09-11] MEDS ORDERED: MIDAZOLAM HCL 2 MG/2 ML VIAL IV PUSH PRN (19:00)
[2017-09-11] MEDS ORDERED: SENNOSIDES 8.6 MG TAB PO PRN (19:00)
[2017-09-11 19:03] LABS: CALCIUM-PROTEIN CORRECTED 7.4 MG/DL (8.5-10.1)
[2017-09-11] MEDS: RESP: ALBUTEROL 2.5 MG/IPRATROPIUM 0.5 MG NEB (PRN) INH (19:39)
[2017-09-11] MEDS: CHLORHEXIDINE 0.12% (ORAL KIT) 15 ML CUP MT SCH (20:00)
[2017-09-11] MEDS: RESP: ALBUTEROL 2.5 MG/IPRATROPIUM 0.5 MG NEB (SCH) INH (20:13)
[2017-09-11] MEDS: MIDAZOLAM 100 MG/100 ML INJ 100 ML IV PRN (20:14)
--- NOTE | 2017-09-11 20:28 | HHI.HP ---
[facility] Service Critical Care Medicine Primary Care Physician Kendal [facility] Admission Diagnosis hemorrhagic shock Diagnosis: Travel History International Travel<30 Days: No Contact w/Intl Traveler <30 Da: No Traveled to Known Affected Are: No History of Present Illness 66-year-old unfortunate gentleman with a long-time alcoholic dependency with liver cirrhosis. [facility]. He denies ever having endoscopy. He drinks heavily on a daily basis. He denies illicit drug use. He's been having melena for several days. He started having hematemesis today. He started vomiting up bright red blood. Paramedics estimated 500 cc of bright red blood on the ground at home. He arrives with a pulse of 110 and a blood pressure 100 systolic. In the emergency department he continued vomiting copious amounts of blood, unable to protect his airway, and was intubated by ED attending. 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 (nares) POSITIVE - 10/16/16 Past Medical History Remote hx of PUD Rectal bleeding a few months ago- did not seek medical care Arthritis HTN COPD Past Surgical History EGD/Colonoscopy Reported Medications Reported Meds & Active Scripts Active Tylenol (Acetaminophen) 325 Mg Tab 650 Mg PO Q6H PRN Lortab (Hydrocodone-Acetaminophen) 5-325 Mg Tab 1 Tab PO Q6H PRN Potassium Chloride ER (Potassium Chloride) 10 Meq Cap 10 Meq PO DAILY 10 Days Furosemide 20 Mg Tab 20 Mg PO BID Bactrim DS (Sulfamethoxazole-Trimethoprim) 800-160 Mg Tab 1 Tab PO BID 14 Days Reported Magnesium Oxide 400 Mg Tab 400 Mg PO DAILY Lisinopril 10 Mg Tab 5 Mg PO DAILY Aspirin Adult Low Strength (Aspirin) 81 Mg Tabdr 81 Mg PO DAILY Remeron (Mirtazapine) 15 Mg Tab 15 Mg PO HS Symbicort Inh (Budesonide/Formoterol Fumarate) 80-4.5 Mcg/Act Aero 2 Puff INH Q12HR Rinse mouth after use Zocor (Simvastatin) 10 Mg Tab 5 Mg PO DAILY Ventolin Hfa 18 GM Inh (Albuterol Sulfate) 90 Mcg/Act Aer 2 Puff INH Q4H PRN Spiriva Handihaler (Tiotropium Inh) 18 Mcg Cap 18 Mcg INH HS 1 capsule = 18 mcg Active Ordered Medications Current Medications Ondansetron HCl (Zofran Inj) 4 mg ONCE ONCE IV Last administered on 09/11/17at 17:15; Start 09/11/17 at 17:15; Stop 09/11/17 at 17:17; Status DC Sodium Chloride 1,000 ml @ 2,000 mls/hr Q30M ONCE IV Last administered on 09/11at 17:15; Start 09/11/17 at 17:15; Stop 09/11/17 at 17:44; Status DC Sodium Chloride 1,000 ml @ 2,000 mls/hr Q30M ONCE IV Last administered on 09/11at 17:15; Start 09/11/17 at 17:15; Stop 09/11/17 at 17:44; Status DC Pantoprazole Sodium (Protonix Inj) 40 mg ONCE ONCE IV PUSH Last administered on 09/11/17at 17:15; Start 09/11/17 at 17:15; Stop 09/11/17 at 17:17; Status DC Octreotide Acetate 500 mcg/ Sodium Chloride 500.5 ml @ 0 mls/hr ONCE ONCE IV Last administered on 09/11/17at 18:56; Start 09/11/17 at 17:15; Stop 09/11/17 at 17:17; Status DC Phytonadione (Aquamephyton Inj) 10 mg ONCE ONCE SQ Last administered on at 21:02; Start 09/11/17 at 17:45; Stop 09/11/17 at 17:46; Status DC Etomidate (Amidate Inj) 40 mg STK-MED ONCE .ROUTE ; Start 09/11/17 at 17:48; Stop 09/11/17 at 17:49; Status DC Succinylcholine Chloride (Quelicin Inj) 200 mg STK-MED ONCE .ROUTE ; Start 09/11 at 17:50; Stop 09/11/17 at 17:51; Status DC Propofol 50 ml @ As Directed STK-MED ONCE .ROUTE ; Start 09/11/17 at 17:55; Stop 09/11/17 at 17:56; Status DC Propofol 100 ml @ 2.316 mls/ hr TITRATE PRN IV Ordered RASS Last administered on 09/11/17at 18:49; Start 09/11/17 at 18:15 Phytonadione (Vitamin K Inj) 10 mg ONCE ONCE SQ Last administered on at 21:30; Start 09/11/17 at 19:00; Stop 09/11/17 at 19:01; Status DC Budesonide/ Formoterol Fumarate (Symbicort 80-4.5 Mcg Inh) 2 puff Q12HR INH ; Start 09/11/17 at 21:00 Mirtazapine (Remeron) 15 mg HS PO ; Start 09/11/17 at 21:00 Trimethoprim/ Sulfamethoxazole (Bactrim Ds 800-160 Mg) 1 tab BID PO ; Start 07/19 at 21:00 Tiotropium Rheems (Spiriva Inh) 18 mcg HS INH ; Start 09/11/17 at 21:00 Sodium Chloride 1,000 ml @ 124 mls/hr Q8H4M IV ; Start 09/11/17 at 18:47 Sodium Chloride (NS Flush) 2 ml UNSCH PRN IV FLUSH FLUSH AFTER USING IV ACCESS ; Start 09/11/17 at 19:00 Sodium Chloride (NS Flush) 2 ml BID IV FLUSH ; Start 09/11/17 at 21:00 Acetaminophen (Tylenol) 650 mg Q6H PRN PO PAIN 1-5 AND/OR FEVER >101F; Start at 19:00 Morphine Sulfate (Morphine Inj) 2 mg Q2H PRN IV PUSH PAIN SCALE 6 TO 10; Start 09/11/17 at 19:00 Pantoprazole Sodium (Protonix Inj) 40 mg Q12H IV PUSH ; Start 09/11/17 at 19:00 Midazolam HCl (Versed Inj) 2 mg Q1H PRN IV PUSH SEDATION; Start 09/11/17 at 19: 00 Artificial Tears (Tears Naturale Opth Soln) 1 drop TID EACH EYE ; Start at 09:00 Ondansetron HCl (Zofran Inj) 4 mg Q6H PRN IV PUSH NAUSEA OR VOMITING; Start 07/19 at 19:00 Albuterol/ Ipratropium (Duoneb Neb) 1 ampule Q6HR NEB INH Last administered on 09/11/17at 20:13; Start 09/11/17 at 22:00 Albuterol/ Ipratropium (Duoneb Neb) 1 ampule Q2HR NEB PRN INH WHEEZING Last administered on 09/11/17at 19:39; Start 09/11/17 at 19:00 Miscellaneous Information 1 Q361D XX ; Start 09/11/17 at 19:00 Chlorhexidine Gluconate (Chlorhexidine 2% Cloth) 3 pack Taper DAILY@04 TOP ; Start 09/12/17 at 04:00; Stop 09/08/18 at 03:59 Chlorhexidine Gluconate (Chlorhexidine 2% Cloth) 3 pack UNSCH PRN TOP HYGIENIC CARE; Start 09/11/17 at 19:00 Senna/Docusate Sodium (Didi-Colace) 1 tab BID PO ; Start 09/11/17 at 21:00 Magnesium Hydroxide (Milk Of Magnesia Liq) 30 ml Q12H PRN PO Mild constipation ; Start 09/11/17 at 19:00 Sennosides (Senokot) 17.2 mg Q12H PRN PO Moderate constipation; Start 09/11/17 at 19:00 Bisacodyl (Dulcolax Supp) 10 mg DAILY PRN RECTAL SEVERE CONSITIPATION; Start at 19:00 Lactulose (Lactulose Liq) 30 ml DAILY PRN PO SEVERE CONSITIPATION; Start at 19:00 Chlorhexidine Gluconate (Peridex 0.12% Liq) 15 ml BID@08,20 MT ; Start 09/11/17 at 20:00 Midazolam HCl 100 ml @ 2 mls/hr TITRATE PRN IV SEDATION Last administered on 07/19at 20:14; Start 09/11/17 at 19:00 Fentanyl Citrate 250 ml @ 5 mls/hr TITRATE PRN IV SEDATION; Start 09/11/17 at 19:00 Ceftriaxone Sodium 1000 mg/ Sodium Chloride 100 ml @ 200 mls/hr Q24H IV ; Start 09/11/17 at 19:00; Stop 09/11/17 at 19:26; Status DC Ceftriaxone Sodium 2000 mg/ Sodium Chloride 100 ml @ 200 mls/hr Q24H IV Last administered on 09/11/17at 23:14; Start 09/11/17 at 20:00 Albumin Human 500 ml @ 250 mls/hr Q6H IV ; Start 09/11/17 at 20:30 Family History Multiple family members with cancer- lung, brain, breast. Cannot remember who. Believes his sister had cancer. Social History 1 PPD, ~40 years Daily heavy alcohol consumption No illicit drug use. Physical Exam Vital Signs Vital Signs Date Time Temp Pulse Resp B/P (MAP) Pulse Ox O2 Delivery O2 Flow Rate FiO2 09/11/17 19:50 98.2 114 28 89/55 100 09/11/17 18:32 97.4 124 27 99/62 100 09/11/17 18:00 99 Ventilator 100 09/11/17 18:00 100 09/11/17 18:00 97 100 09/11/17 17:37 97.9 103 24 104/55 96 09/11/17 17:36 97.9 105 24 104/55 95 09/11/17 17:12 97.9 108 30 105/64 (78) 99 Nasal Cannula 3.00 09/11/17 17:12 18 09/11/17 17:07 97.9 106 30 104/56 (72) 93 Physical Exam GENERAL: Ill-appearing patient with ascites sedated and intubated. SKIN: Focused skin assessment reveals no rash and nodules. Skin is pale and dry. HEAD: Atraumatic. Normocephalic. EYES: Pupils equal and round. No scleral icterus. No injection or drainage. ENT: No nasal bleeding or discharge. Mucous membranes pink and moist. NECK: Trachea midline. No JVD. CARDIOVASCULAR: Regular rate and rhythm. No murmur appreciated. RESPIRATORY: No accessory muscle use. Clear to auscultation. Breath sounds equal bilaterally. GASTROINTESTINAL: Abdomen soft, has abdominal distention with ascites but nontender. MUSCULOSKELETAL: No obvious deformities. No clubbing. No cyanosis. No edema. NEUROLOGICAL: Sedated and intubated Laboratory Laboratory Tests Test 09/11/17 17:20 White Blood Count 7.7 Red Blood Count 2.47 Hemoglobin 6.1 Hematocrit 19.5 Mean Corpuscular Volume 78.7 Mean Corpuscular Hemoglobin 24.6 Mean Corpuscular Hemoglobin Concent 31.3 Red Cell Distribution Width 22.3 Platelet Count 213 Mean Platelet Volume 7.4 Neutrophils (%) (Auto) 66.6 Lymphocytes (%) (Auto) 18.9 Monocytes (%) (Auto) 13.4 Eosinophils (%) (Auto) 0.4 Basophils (%) (Auto) 0.7 Neutrophils # (Auto) 5.1 Lymphocytes # (Auto) 1.5 Monocytes # (Auto) 1.0 Eosinophils # (Auto) 0.0 Basophils # (Auto) 0.1 CBC Comment DIFF FINAL Differential Comment Prothrombin Time 14.2 Prothromb Time International Ratio 1.4 Activated Partial Thromboplast Time 28.6 Blood Urea Nitrogen 8 Creatinine 0.88 Random Glucose 95 Total Protein 6.7 Albumin 2.2 Calcium Level 7.2 Alkaline Phosphatase 94 Aspartate Amino Transf (AST/SGOT) 68 Alanine Aminotransferase (ALT/SGPT) 31 Total Bilirubin 1.1 Sodium Level 130 Potassium Level 3.7 Chloride Level 99 Carbon Dioxide Level 16.5 Anion Gap 15 Estimat Glomerular Filtration Rate 87 Protein Corrected Calcium 7.4 Result Diagram: 09/11/17 1720 09/11/17 1720 Imaging Last 24 hours Impressions Chest X-Ray 09/11/17 0000 Signed Impressions: Service Date/Time: September 17:51 - CONCLUSION: 1. Developing left base pneumonia and tiny effusion. Right lung clear. 2. Appropriate position of the endotracheal tube and nasogastric tube. Oswaldo Nuñez MD Septic Shock Reassessment Septic shock perfusion: reassessment completed Caprini VTE Risk Assessment Caprini VTE Risk Assessment: Mod/High Risk (score >= 2) VTE Pharm Contraindication: Hemorrhage Caprini Risk Assessment Model Point Value = 1 Point Value = 2 Point Value = 3 Point Value = 5 Age 41-60 Minor surgery BMI > 25 kg/m2 Swollen legs Varicose veins or History of unexplained or recurrent spontaneous Oral contraceptives or hormone replacement Sepsis (< 1 month) Serious lung disease, including pneumonia (< 1 month) Abnormal pulmonary function Acute myocardial infarction Congestive heart failure (< 1 month) History of inflammatory bowel disease Medical patient at bed rest Age 61-74 Arthroscopic surgery Major open surgery (> 45 min) Laparoscopic surgery (> 45 min) Malignancy Confined to bed (> 72 hours) Immobilizing plaster cast Central venous access Age >= 75 History of VTE Family history of VTE Factor V Leiden Prothrombin 52423H Lupus anticoagulant Anticardiolipin antibodies Elevated serum homocysteine Heparin-induced thrombocytopenia Other congenital or acquired thrombophilia Stroke (< 1 month) Elective arthroplasty Hip, pelvis, or leg fracture Acute spinal cord injury (< 1 month) Prophylaxis Regimen Total Risk Factor Score Risk Level Prophylaxis Regimen 0-1 Low Early ambulation 2 Moderate Order ONE of the following: *Sequential Compression Device (SCD) *Heparin 5000 units SQ BID 3-4 Higher Order ONE of the following medications: *Heparin 5000 units SQ TID *Enoxaparin/Lovenox 40 mg SQ daily (WT < 150 kg, CrCl > 30 mL/min) *Enoxaparin/Lovenox 30 mg SQ daily (WT < 150 kg, CrCl > 10-29 mL/min) *Enoxaparin/Lovenox 30 mg SQ BID (WT < 150 kg, CrCl > 30 mL/min) AND/OR *Sequential Compression Device (SCD) 5 or more Highest Order ONE of the following medications: *Heparin 5000 units SQ TID (Preferred with Epidurals) *Enoxaparin/Lovenox 40 mg SQ daily (WT < 150 kg, CrCl > 30 mL/min) *Enoxaparin/Lovenox 30 mg SQ daily (WT < 150 kg, CrCl > 10-29 mL/min) *Enoxaparin/Lovenox 30 mg SQ BID (WT < 150 kg, CrCl > 30 mL/min) AND *Sequential Compression Device (SCD) Assessment and Plan Assessment and Plan Respiratory failure - Intubated for an airway protection - No weaning until hemodynamically and respiratory stable - CXR and ABG daily - ICU vent bundle - DuoNeb's when necessary Hematemesis - Likely variceal bleed - Protonix IV twice a day - Octreotide drip - Further per gastroenterology Anemia - Blood loss anemia - Series of H&H - Transfuse to keep hemoglobin above 7 Liver cirrhosis - Alcoholic liver cirrhosis - Supportive care - Further per GI Alcohol dependence - CIWA protocol - Versed drip - Monitor withdrawal DVT GI prophylaxis - Teds SCDs - No pharmacological DVT prophylaxis due to acute GI bleed - Protonix IV twice a day Critical Care: The total critical care time was 35 minutes. Time to perform other separately billable procedures was not included in the critical care time. Osmel Marino MD Sep 11, 2017 8:27 pm
[2017-09-11] MEDS ORDERED: MIRTAZAPINE 15 MG TAB PO SCH (21:00)
[2017-09-11] MEDS: SULFAMETHOXAZOLE-TRIMETHOPRIM DS 800-160 MG TAB PO SCH (21:00)
[2017-09-11] MEDS: SODIUM CHLORIDE 0.9% FLUSH 10 ML FLUSH IV FLUSH SCH (21:00)
[2017-09-11] MEDS: DOCUSATE SODIUM 50 MG/SENNA 8.6 MG TAB PO SCH (21:00)
[2017-09-11 22:23] LABS: AUTOMATED NEUTROPHIL # 10.4 TH/MM3 (1.8-7.7); BASOPHIL % 0.4 % (0.0-2.0); EOSINOPHIL % 0.1 % (0.0-4.0); HEMATOCRIT 32.7 % (39.0-51.0); HEMOGLOBIN 10.5 GM/DL (13.0-17.0); LYMPH % 7.8 % (9.0-44.0); MEAN CELL VOLUME 80.3 FL (80.0-100.0); MEAN CORPUSCULAR HEMOGLOBIN 25.9 PG (27.0-34.0); MEAN CORPUSCULAR HGB CONC 32.3 % (32.0-36.0); MEAN PLATELET VOLUME 7.2 FL (7.0-11.0); MONO % 10.7 % (0.0-8.0); MONOCYTE # 1.4 TH/MM3 (0-0.9); PLATELET COUNT 170 TH/MM3 (150-450); RED BLOOD COUNT 4.07 MIL/MM3 (4.50-5.90); RED CELL DISTRIBUTION WIDTH 19.1 % (11.6-17.2); WHITE BLOOD COUNT 12.8 TH/MM3 (4.0-11.0)
[2017-09-11] MEDS: cefTRIAXone INJ 2,000 MG in SODIUM CHLORIDE 0.9% INJ 100 ML IV SCH ×2 (23:14→23:16)
[2017-09-12] VITALS (28 sets, daily range): BP systolic 86–116; BP diastolic 56–72; PULSE 95–135; RESP 16–24; TEMP 97.7–99.1; O2SAT 92–100
[2017-09-12] MEDS: ALBUMIN 5% INJ 500 ML IV SCH ×5 (01:30→21:01)
[2017-09-12] MEDS: SODIUM CHLOR 0.9% 1000 ML INJ 1,000 ML IV SCH ×4 (01:40→21:04)
--- NOTE | 2017-09-12 02:51 | PD.PROCEDR ---
Procedure Note Procedure Centerline placement A time-out was completed verifying correct patient, procedure, site, positioning , and special equipment if applicable. The patient was placed in a dependent position appropriate for central line placement based on the vein to be cannulated. The patients left neck was prepped and draped in sterile fashion. 1 % Lidocaine was used to anesthetize the surrounding skin area. A triple lumen 9 Frisian Cordis catheter was introduced into the the internal jugular vein using the Seldinger technique and under ultrasound guidance. The catheter was threaded smoothly over the guide wire and appropriate blood return was obtained. Each lumen of the catheter was evacuated of air and flushed with sterile saline. The catheter was then sutured in place to the skin and a sterile dressing applied. Perfusion to the extremity distal to the point of catheter insertion was checked and found to be adequate. Estimated Blood Loss: 1ml The patient tolerated the procedure well and there were no complications. Osmel Marino MD Sep 12, 2017 2:51 am
[2017-09-12] MEDS: OCTREOTIDE INJ 500 MCG in SODIUM CHLORID 0.9% 500 ML INJ 499.5 ML IV SCH (03:38)
[2017-09-12] MEDS: fentaNYL DRIP 250 ML IV PRN ×2 (03:49→12:49)
[2017-09-12 03:54] LABS: AUTOMATED NEUTROPHIL # 10.7 TH/MM3 (1.8-7.7); BASOPHIL # 0.1 TH/MM3 (0-0.2); BASOPHIL % 0.9 % (0.0-2.0); EOSINOPHIL % 0.4 % (0.0-4.0); HEMATOCRIT 31.2 % (39.0-51.0); LYMPH % 9.9 % (9.0-44.0); LYMPHOCYTE # 1.3 TH/MM3 (1.0-4.8); MEAN CORPUSCULAR HEMOGLOBIN 25.9 PG (27.0-34.0); MEAN CORPUSCULAR HGB CONC 31.9 % (32.0-36.0); MEAN PLATELET VOLUME 7.1 FL (7.0-11.0); MONO % 6.6 % (0.0-8.0); MONOCYTE # 0.9 TH/MM3 (0-0.9); NEUT % 82.2 % (16.0-70.0); PLATELET COUNT 157 TH/MM3 (150-450); RED BLOOD COUNT 3.86 MIL/MM3 (4.50-5.90); RED CELL DISTRIBUTION WIDTH 19.2 % (11.6-17.2)
[2017-09-12] MEDS: RESP: ALBUTEROL 2.5 MG/IPRATROPIUM 0.5 MG NEB (SCH) INH ×4 (04:03→20:13)
[2017-09-12 04:09] LABS: INTERNATIONAL NORMALIZED RATIO 1.3 RATIO; PROTHROMBIN TIME - PATIENT 13.5 SEC (9.8-11.6)
[2017-09-12 04:46] LABS: ALBUMIN 2.6 GM/DL (3.4-5.0); BICARBONATE 17.9 MEQ/L (21.0-32.0); CALCIUM 6.6 MG/DL (8.5-10.1); CREATININE 0.93 MG/DL (0.60-1.30); MAGNESIUM 1.7 MG/DL (1.5-2.5); PHOSPHORUS 3.9 MG/DL (2.5-4.9); TOTAL PROTEIN 6.8 GM/DL (6.4-8.2)
[2017-09-12 04:53] LABS: CALCIUM-PROTEIN CORRECTED 6.8 MG/DL (8.5-10.1)
--- NOTE | 2017-09-12 05:21 | RADRPT ---
EXAM DATE/TIME: 09/12/2017 04:18 [place] COMPARISON: CHEST SINGLE AP, September 11, 2017, 17:51. INDICATIONS : Evaluate for respiratory failure. MEDICAL HISTORY : Unobtainable. SURGICAL HISTORY : Unobtainable. ENCOUNTER: Subsequent ACUITY: 2 days PAIN SCORE: Non-responsive. LOCATION: chest FINDINGS: The support devices remain in place. There is some scattered areas of atelectasis in both lower lungs . Otherwise, the rest the lung garcia remain clear. There's been no significant change compared to e prior examination. There is no evidence of pneumothorax. CONCLUSION: No significant interval change. Tera Mishra MD on September 12, 2017 at 5:19 Board Certified Radiologist. This report was verified electronically.
--- NOTE | 2017-09-12 05:52 | MB ---
cc: JACK GROSS M.D. REFERRING PHYSICIAN Dr. Napoles DATE OF CONSULTATION 09/11/2017 DATE OF 1950 REASON FOR CONSULTATION GI bleed. HISTORY OF PRESENT ILLNESS Mr. Tidwell is a 66-year-old gentleman with history of alcoholic cirrhosis, [facility]. He came to the emergency room, brought by the paramedics. Currently he is intubated. I am unable to take any history from him. The family is not available. Apparently he was having melanotic stools for a few days and earlier today he vomited some red blood, approximately 500 cc of red blood - as per the paramedics. Currently he has an NG tube with approximately 300 cc of dark blood suctioned from his stomach. I am unable to take any history from him. Apparently he was hypotensive when he came to the emergency room, he was given IV fluids and emergent blood release. He is on his third unit currently. His vitals has improved significantly. No further bleeding is seen since his admission here. The patient had an upper endoscopy in October of 2016 that was suggestive of gastritis, portal gastropathy, duodenitis and esophageal varices grade 1.Colonoscopy was also performed -results in his record. PAST MEDICAL HISTORY 1. Osteoarthritis. 2. Liver cirrhosis. 3. High blood pressure. 4. COPD. PAST SURGICAL HISTORY None. SOCIAL HISTORY He drinks alcohol daily. Smokes one pack of cigarettes daily. MEDICATIONS AT HOME 1. Tylenol. 2. Lortab. 3. Potassium. 4. Lasix. 5. Bactrim. 6. Magnesium. 7. Lisinopril. 8. Aspirin. 9. Remeron. 10. Symbicort. 11. Zocor. 12. Ventolin. 13. Spiriva. In the emergency room he was already started on Protonix, octreotide drip and antibiotics. REVIEW OF SYSTEMS Cannot be performed at this time. The patient is intubated. PHYSICAL EXAMINATION GENERAL: On clinical exam he is arousable, trying to find the ventilator, unable to give me any kind of history, intubated. VITAL SIGNS: Temperature 97.4, heart rate 108, blood pressure 104/55, saturation 99. HEENT: PERRLA. Neck: No JVD. No lymphadenopathy. CHEST: Clear to the patient and palpation. CARDIOVASCULAR: S1, S2. No murmur. ABDOMEN: Soft but distended. Bowel sounds are present. INSTRUMENT TECHNOLOGIST: He is sedated. EXTREMITIES: No pedal edema. LABORATORY DATA His PT/INR are normal. His hemoglobin on admission is 6.1, in July of last year was 10.1, platelets 213. His chemistry is partially resulted. His total bilirubin is 1.1. His carbon dioxide is 16.5. IMPRESSION Mr. Tidwell is a 66-year-old gentleman with history of alcoholic cirrhosis admitted to the hospital with GI bleed, currently intubated. He seems to be hemodynamically stable at this time. GI bleeding -most likely secondary esophageal varices, possible PUD liver cirrhosis secondary ETOH Acute anemia secondary gi bleeding RECOMMENDATIONS 1. NG tube. 2. Continue octreotide drip. 3. Continue Protonix. 4. IV antibiotics. 5. Monitor H&H closely. 6. Transfuse to keep hemoglobin more than 8. 7. Upper endoscopy with possible band ligation in a.m. unless indicated otherwise. If continues to bleed or becomes unstable, we do it on emergency. I tried to call - no answer at the number available in the chart. MD ANIKA QuintanillaB/NICHOLAS /7:14 PM /5:17 AM MTDGeoffrey
[2017-09-12] MEDS: PANTOPRAZOLE SODIUM 40 MG VIAL IV PUSH SCH ×2 (07:59→21:03)
[2017-09-12] MEDS: DOCUSATE SODIUM 50 MG/SENNA 8.6 MG TAB PO SCH ×3 (07:59→21:00)
[2017-09-12] MEDS: SODIUM CHLORIDE 0.9% FLUSH 10 ML FLUSH IV FLUSH SCH ×2 (07:59→21:02)
[2017-09-12] MEDS: CHLORHEXIDINE 0.12% (ORAL KIT) 15 ML CUP MT SCH ×2 (07:59→21:03)
[2017-09-12] MEDS: SULFAMETHOXAZOLE-TRIMETHOPRIM DS 800-160 MG TAB PO SCH ×2 (07:59→08:53)
--- NOTE | 2017-09-12 08:39 | HHI.CCPN ---
Subjective Remarks/Hospital Course 66-year-old unfortunate gentleman with a long-time alcoholic dependency with liver cirrhosis. He is a [facility]. He denies ever having endoscopy. He drinks heavily on a daily basis. He denies illicit drug use. He's been having melena for several days. He started having hematemesis today. He started vomiting up bright red blood. Paramedics estimated 500 cc of bright red blood on the ground at home. He arrives with a pulse of 110 and a blood pressure 100 systolic. In the emergency department he continued vomiting copious amounts of blood, unable to protect his airway, and was intubated by ED attending. Subjective: 09/12: Afebrile. Hemodynamically stable. The patient has had approximately 100 cc bloody gastric output overnight. Patient consents remains on fentanyl and Versed sedation for ventilator synchrony. No melanotic stools throughout the night. Patient continues on serial monitoring of H&H. Objective Vital Signs Date Time Temp Pulse Resp B/P (MAP) Pulse Ox O2 Delivery O2 Flow Rate FiO2 09/12/17 06:00 106 09/12/17 04:03 97 50 09/12/17 03:00 98.0 21 94/64 (74) 09/11/17 23:00 Ventilator 09/11/17 17:12 3.00 Intake and Output 09/12/17 09/12/17 09/13/17 08:00 16:00 00:00 Intake Total 2065.2 ml Output Total 470 ml Balance 1595.2 ml Result Diagram: 09/12/17 0342 09/12/17 0342 Other Results Laboratory Tests Test 09/11/17 22:00 Blood Gas Puncture Site RT RADIAL Blood Gas Patient Temperature 98.6 Blood Gas HCO3 15 mmol/L (22-26) Blood Gas Base Excess -10.9 mmol/L (-2-2) Blood Gas Oxygen Saturation 98 % (90-100) Arterial Blood pH 7.25 (7.380-7.420) Arterial Blood Partial Pressure CO2 36 mmHg (38-42) Arterial Blood Partial Pressure O2 367 mmHG (61-120) Arterial Blood Oxygen Content 15.6 Vol % (12.0-20.0) Arterial Blood Carboxyhemoglobin 1.4 % (0-4) Arterial Blood Methemoglobin 0.7 % (0-2) Blood Gas Hemoglobin 10.7 G/DL (12.0-16.0) Oxygen Delivery Device VENTILATOR Blood Gas Ventilator Setting AC16/500 /5 PEEP Blood Gas Inspired Oxygen 100 % Imaging Last 24 hours Impressions Chest X-Ray 09/11/17 0000 Signed Impressions: Service Date/Time: September 17:51 - CONCLUSION: 1. Developing left base pneumonia and tiny effusion. Right lung clear. 2. Appropriate position of the endotracheal tube and nasogastric tube. Oswaldo Nuñez MD Objective Remarks GENERAL: Ill-appearing patient with ascites sedated and intubated. SKIN: Focused skin assessment reveals no rash and nodules. Skin is pale and dry. HEAD: Atraumatic. Normocephalic. EYES: Pupils equal and round. No scleral icterus. No injection or drainage. ENT: No nasal bleeding or discharge. Mucous membranes pink and moist. NECK: Trachea midline. No JVD. CARDIOVASCULAR: Regular rate and rhythm. No murmur appreciated. RESPIRATORY: No accessory muscle use. Clear to auscultation. Breath sounds equal bilaterally. GASTROINTESTINAL: Abdomen soft, has abdominal distention with ascites but nontender. MUSCULOSKELETAL: No obvious deformities. No clubbing. No cyanosis. No edema. NEUROLOGICAL: Sedated and intubated Urinary Catheter: Yes Date of Insertion: Sep 11, 2017 Vascular Central Line Catheter: Yes Assessment to: Continue Date of Insertion: Sep 11, 2017 Line: Central Venous Catheter Side: Left Location: Subclavian Reason for Continuation Medication and blood administration A/P Assessment and Plan Respiratory failure - Intubated for an airway protection - No weaning until hemodynamically and respiratory stable - CXR and ABG daily - ICU vent bundle - DuoNeb's when necessary Hematemesis History of grade 1 esophageal varices - Likely variceal bleed - Protonix IV twice a day - Octreotide infusion - GI following- Dr. León tentative plan for EGD with possible band ligation 08/18 - 10/18 previous EGD -gastritis portal gastropathy, duodenitis, esophageal varices grade 1 Anemia - Blood loss anemia - Series of H&H - Transfuse to keep hemoglobin above 7 Metabolic acidosis secondary to acute blood loss anemia - Monitor ABGs Liver cirrhosis - Alcoholic liver cirrhosis - Supportive care - Further per GI Alcohol dependence - WA protocol - Versed drip - Monitor withdrawal -Seizure precautions Electrolyte derangement -Hypocalcemia transfuse 2 g calcium gluconate this a.m. -Monitor BMP DVT GI prophylaxis - Teds SCDs - No pharmacological DVT prophylaxis due to acute GI bleed - Protonix IV twice a day Critical Care: my billing statement This patient remains critically ill with one or more organ systems which are or may become a threat to life. I have spent in excess of 30 minutes discontinuously in the care and management of this patient. This time is exclusive of procedures, and includes, but is not limited to, evaluation of the patient, review of the medical record, discussions with family, consultants, nursing staff, or respiratory therapy, and documentation in the medical record. Physician Bethany Haque MD Sep 12, 2017 08:39
[2017-09-12] MEDS: BUDESONIDE-FORMOTEROL 80/4.5 MCG INHALER INH SCH (09:00)
[2017-09-12 10:25] LABS: HEMATOCRIT 28.6 % (39.0-51.0); HEMOGLOBIN 9.1 GM/DL (13.0-17.0)
[2017-09-12] MEDS ORDERED: NOREPINEPHRINE INJ 4 MG in SODIUM CHLOR 0.9% 250 ML INJ 246 ML IV PRN (10:45)
[2017-09-12] MEDS ORDERED: NOREPINEPHRINE-DEXTROSE DRIP 250 ML IV ONE (10:45)
[2017-09-12] MEDS ORDERED: TERBUTALINE INJ 1 MG/ML AMP SQ PRN (10:45)
--- NOTE | 2017-09-12 11:45 | GIPROC ---
[facility] [address] [facility]. [facility], [address] EGD PROCEDURE REPORT EXAM DATE: 09/12/2017 PATIENT NAME: Jimmy Tidwell MR #: [id number] BIRTHDATE: 1950 ATTENDING: Zeinab León MD ORDER #: [id number] [employer] OPERATOR: Madison Robert Pat STATUS: inpatient INDICATIONS: The patient is a 66 yr old male here for an EGD due to gi bleeding liver cirrhosis PROCEDURE PERFORMED: EGD w/ band ligation of varices MEDICATIONS: Per Anesthesia and None. TOPICAL ANESTHETIC: none CONSENT: The patient understands the risks and benefits of the procedure and understands that these risks include, but are not limited to: sedation, allergic reaction, infection, perforation and/or bleeding. Alternative means of evaluation and treatment include, among others: physical exam, x-rays, and/or surgical intervention. The patient elects to proceed with this endoscopic procedure. medical equipment was checked for proper function. Hand hygiene and appropriate measures for infection prevention was taken. After the risks, benefits and alternatives of the procedure were thoroughly explained, Informed consent was verified, confirmed and timeout was successfully executed by the treatment team. The patient was anesthetized with topical anesthesia and the Pentax EG-[id number] endoscope was introduced through the mouth and advanced to the second portion of the duodenum. Retroflexed views revealed clot in fundus The gastroscope was then slowly withdrawn and removed. Esophageal varices grade 2 -s/p band ligation - 4 bands applied portal gastropathy clot fundus. ADVERSE EVENTS: There were no complications. IMPRESSIONS: 1. Esophageal varices grade 2 -s/p band ligation portal gastropathy clot fundus 2. Retroflexed views revealed clot in fundus RECOMMENDATIONS: 1. Anti-reflux regimen 2. Continue PPI 3. Npo for now ct abdomen/pelvis can extubate in am if no further bleeding PATIENT CONDITION: stable DISPOSITION: Inpatient REPEAT EXAM: Return 3 days EGD Zeinab León MD eSigned: Zeinab León MD 09/12/2017 11:45 AM cc: PATIENT NAME: Jimmy Tidwell MR#: [id number]
[2017-09-12] MEDS ORDERED: ROCURONIUM INJ 50 MG/5 ML SYRINGE IV PUSH ONE (12:00)
[2017-09-12] MEDS ORDERED: SODIUM BICARBONATE 8.4% INJ 50 MEQ/50 ML SYR IV PUSH ONE (14:00)
[2017-09-12] MEDS ORDERED: SODIUM BICARBONATE 8.4% INJ 50 ML ONE (14:05)
[2017-09-12 14:26] LABS: HEMATOCRIT 30.5 % (39.0-51.0); HEMOGLOBIN 9.4 GM/DL (13.0-17.0)
[2017-09-12] MEDS: MIDAZOLAM 100 MG/100 ML INJ 100 ML IV PRN (16:03)
[2017-09-12] MEDS: ARTIFICIAL TEARS OPTH SOLN 15 ML BTL EACH EYE SCH (17:36)
[2017-09-12] MEDS: TIOTROPIUM BROMIDE 18 MCG INH INH SCH (21:00)
[2017-09-12] MEDS: cefTRIAXone INJ 2,000 MG in SODIUM CHLORIDE 0.9% INJ 100 ML IV SCH (21:00)
[2017-09-12 22:42] LABS: HEMOGLOBIN 8.6 GM/DL (13.0-17.0)
[2017-09-13] VITALS (22 sets, daily range): BP systolic 94–109; BP diastolic 59–72; PULSE 80–146; RESP 22–26; TEMP 97.5–98.7; O2SAT 85–97
[2017-09-13] MEDS: TIOTROPIUM BROMIDE 18 MCG INH INH SCH ×2 (00:24→21:00)
[2017-09-13] MEDS: BUDESONIDE-FORMOTEROL 80/4.5 MCG INHALER INH SCH ×3 (00:24→19:53)
[2017-09-13] MEDS: OCTREOTIDE INJ 500 MCG in SODIUM CHLORID 0.9% 500 ML INJ 499.5 ML IV SCH (00:25)
[2017-09-13] MEDS: SODIUM CHLOR 0.9% 1000 ML INJ 1,000 ML IV SCH ×3 (02:36→19:11)
[2017-09-13] MEDS: ALBUMIN 5% INJ 500 ML IV SCH ×4 (02:39→19:48)
[2017-09-13] MEDS: RESP: ALBUTEROL 2.5 MG/IPRATROPIUM 0.5 MG NEB (SCH) INH ×4 (03:50→21:16)
[2017-09-13 04:23] LABS: HEMATOCRIT 26.8 % (39.0-51.0); HEMOGLOBIN 8.4 GM/DL (13.0-17.0)
[2017-09-13] MEDS: PANTOPRAZOLE SODIUM 40 MG VIAL IV PUSH SCH ×2 (06:52→19:49)
[2017-09-13] MEDS: DOCUSATE SODIUM 50 MG/SENNA 8.6 MG TAB PO SCH ×2 (07:53→19:50)
[2017-09-13] MEDS: SODIUM CHLORIDE 0.9% FLUSH 10 ML FLUSH IV FLUSH SCH ×2 (07:53→19:49)
[2017-09-13] MEDS: CHLORHEXIDINE 0.12% (ORAL KIT) 15 ML CUP MT SCH ×2 (07:53→19:49)
[2017-09-13] MEDS: ARTIFICIAL TEARS OPTH SOLN 15 ML BTL EACH EYE SCH ×3 (07:54→18:00)
[2017-09-13 08:31] LABS: AUTOMATED NEUTROPHIL # 12.2 TH/MM3 (1.8-7.7); BASOPHIL # 0.1 TH/MM3 (0-0.2); BASOPHIL % 0.5 % (0.0-2.0); EOSINOPHIL # 0.1 TH/MM3 (0-0.4); EOSINOPHIL % 0.4 % (0.0-4.0); HEMATOCRIT 27.3 % (39.0-51.0); HEMOGLOBIN 8.5 GM/DL (13.0-17.0); LYMPH % 5.3 % (9.0-44.0); LYMPHOCYTE # 0.8 TH/MM3 (1.0-4.8); MEAN CELL VOLUME 82.9 FL (80.0-100.0); MEAN CORPUSCULAR HEMOGLOBIN 25.7 PG (27.0-34.0); MEAN PLATELET VOLUME 7.6 FL (7.0-11.0); MONOCYTE # 1.1 TH/MM3 (0-0.9); NEUT % 85.8 % (16.0-70.0); PLATELET COUNT 99 TH/MM3 (150-450); RED BLOOD COUNT 3.29 MIL/MM3 (4.50-5.90); RED CELL DISTRIBUTION WIDTH 19.8 % (11.6-17.2); WHITE BLOOD COUNT 14.2 TH/MM3 (4.0-11.0)
[2017-09-13 09:02] LABS: ALBUMIN 3.7 GM/DL (3.4-5.0); ALKALINE PHOSPHATASE 65 U/L (45-117); ALT (GPT) 25 U/L (12-78); AST (GOT) 70 U/L (15-37); BICARBONATE 16.9 MEQ/L (21.0-32.0); BLOOD UREA NITROGEN 25 MG/DL (7-18); CALCIUM 7.8 MG/DL (8.5-10.1); CHLORIDE 111 MEQ/L (98-107); CREATININE 1.78 MG/DL (0.60-1.30); GLOMERULAR FILTRATION RATE 39 ML/MIN (>89); GLUCOSE,RANDOM 81 MG/DL (74-106); MAGNESIUM 1.8 MG/DL (1.5-2.5); PHOSPHORUS 4.5 MG/DL (2.5-4.9); SODIUM (NA) 137 MEQ/L (136-145); TOTAL BILIRUBIN ADULT 4.2 MG/DL (0.2-1.0); TOTAL PROTEIN 7.1 GM/DL (6.4-8.2)
--- NOTE | 2017-09-13 09:48 | HHI.CCPN ---
Subjective Remarks/Hospital Course 66-year-old unfortunate gentleman with a long-time alcoholic dependency with liver cirrhosis. [facility] is [facility]. He denies ever having endoscopy. He drinks heavily on a daily basis. He denies illicit drug use. He's been having melena for several days. He started having hematemesis today. He started vomiting up bright red blood. Paramedics estimated 500 cc of bright red blood on the ground at home. He arrives with a pulse of 110 and a blood pressure 100 systolic. In the emergency department he continued vomiting copious amounts of blood, unable to protect his airway, and was intubated by ED attending. Subjective: 09/12: Afebrile. Hemodynamically stable. The patient has had approximately 100 cc bloody gastric output overnight. Patient consents remains on fentanyl and Versed sedation for ventilator synchrony. No melanotic stools throughout the night. Patient continues on serial monitoring of H&H. 09/13: Afebrile. Attempts made to transfer patient at [address] of the abdomen and pelvis unsuccessful secondary to hypotension, despite the patient having norepinephrine infusion ordered, not initiated by night RN. CT was abruptly aborted patient was transferred back to ICU. This a.m. patient noted urinary output continues to decrease creatinine significantly elevated. Abdomen extremely taut, bowel sounds not appreciated. CT of abdomen and pelvis pending. Patient remains on fentanyl and Versed infusions for ventilator synchrony. Planned to consider diminution of Fentanyl and initiate Propofol and Versed for sedation. Objective Vital Signs Date Time Temp Pulse Resp B/P (MAP) Pulse Ox O2 Delivery O2 Flow Rate FiO2 09/13/17 09:01 95 60 09/13/17 07:00 98.7 116 22 109/69 (82) 09/12/17 23:02 Ventilator 09/11/17 17:12 3.00 Intake and Output 09/13/17 09/13/17 09/14/17 08:00 16:00 00:00 Intake Total 400 ml 3561 ml Output Total 220 ml Balance 180 ml 3561 ml Result Diagram: 09/13/17 0740 09/13/17 0740 Other Results Laboratory Tests Test 09/12/17 13:28 09/12/17 17:08 Blood Gas Puncture Site RT RADIAL RT RADIAL Blood Gas Patient Temperature 98.6 98.6 Blood Gas HCO3 17 mmol/L (22-26) 17 mmol/L (22-26) Blood Gas Base Excess -11.5 mmol/L (-2-2) -9.8 mmol/L (-2-2) Blood Gas Oxygen Saturation 91 % (90-100) 92 % (90-100) Arterial Blood pH 7.08 (7.380-7.420) 7.21 (7.380-7.420) Arterial Blood Partial Pressure CO2 60 mmHg (38-42) 44 mmHg (38-42) Arterial Blood Partial Pressure O2 90 mmHg (61-120) 82 mmHg (61-120) Arterial Blood Oxygen Content 12.4 Vol % (12.0-20.0) 11.8 Vol % (12.0-20.0) Arterial Blood Carboxyhemoglobin 1.3 % (0-4) 1.5 % (0-4) Arterial Blood Methemoglobin 1.6 % (0-2) 1.5 % (0-2) Blood Gas Hemoglobin 9.6 G/DL (12.0-16.0) 9.0 G/DL (12.0-16.0) Oxygen Delivery Device VENTILATOR VENTILATOR Blood Gas Ventilator Setting 550/22/5 A/C Blood Gas Inspired Oxygen 70 % 50 % Imaging Last 24 hours Impressions Chest X-Ray 09/11/17 0000 Signed Impressions: Service Date/Time: September 17:51 - CONCLUSION: 1. Developing left base pneumonia and tiny effusion. Right lung clear. 2. Appropriate position of the endotracheal tube and nasogastric tube. Oswaldo Nuñez MD Objective Remarks GENERAL: Ill-appearing patient with ascites sedated and intubated. SKIN: Focused skin assessment reveals no rash and nodules. Skin is pale and dry. HEAD: Atraumatic. Normocephalic. EYES: Pupils equal and round. No scleral icterus. No injection or drainage. ENT: No nasal bleeding or discharge. Mucous membranes pink and moist. NECK: Trachea midline. No JVD. CARDIOVASCULAR: Regular rate and rhythm. No murmur appreciated. RESPIRATORY: No accessory muscle use. Clear to auscultation. Breath sounds equal bilaterally. GASTROINTESTINAL: Abdomen soft, has abdominal distention with ascites but nontender. MUSCULOSKELETAL: No obvious deformities. No clubbing. No cyanosis. No edema. NEUROLOGICAL: Sedated and intubated Date of Insertion: Sep 11, 2017 Date of Insertion: Sep 11, 2017 Line: Central Venous Catheter Side: Left Location: Subclavian A/P Assessment and Plan Acute Hypoxemic Respiratory failure - Intubated for an airway protection - No weaning until hemodynamically and respiratory stable - CXR and ABG daily - ICU vent bundle - DuoNeb's when necessary Hematemesis History of grade 1 esophageal varices Abdominal distention - Likely variceal bleed - Protonix IV twice a day - Octreotide infusion - GI following- Dr. León S/P EGD with band ligation 09/12/17 - 10/18 previous EGD -gastritis portal gastropathy, duodenitis, esophageal varices grade 1 - Obtain CT of the abdomen and pelvis with contrast- F/U -Obtain lactic acid level, begin bladder/intra-abdominal pressure monitoring Hypotension - Begin Levophed infusion for MAP less than 65mmHG, initiated 1/12 AM -Monitor SVV,and CVP Anemia - Blood loss anemia - Serial of H&H - Transfuse to keep hemoglobin above 7 Mixed acidosis - Monitor ABGs -Repeat ABG Liver cirrhosis - Alcoholic liver cirrhosis -Monitor ammonia level - Supportive care - Further per GI Alcohol dependence - CIWA protocol - Versed drip - Monitor withdrawal -Seizure precautions Electrolyte derangement -Hypocalcemia -Monitor BMP DVT GI prophylaxis - Teds SCDs - No pharmacological DVT prophylaxis due to acute GI bleed - Protonix IV twice a day Critical Care: my billing statement This patient remains critically ill with one or more organ systems which are or may become a threat to life. I have spent in excess of 35 minutes discontinuously in the care and management of this patient. This time is exclusive of procedures, and includes, but is not limited to, evaluation of the patient, review of the medical record, discussions with family, consultants, nursing staff, or respiratory therapy, and documentation in the medical record. Physician Bethany Haque MD Sep 13, 2017 09:48
[2017-09-13 10:03] LABS: INTERNATIONAL NORMALIZED RATIO 1.5 RATIO; PROTHROMBIN TIME - PATIENT 14.7 SEC (9.8-11.6)
[2017-09-13] MEDS ORDERED: IOHEXOL 350 MG/ML 10 ML VIAL (for RAD DIAG) IVCONTRAST ONE (10:27)
--- NOTE | 2017-09-13 11:18 | RADRPT ---
EXAM DATE/TIME: 09/13/2017 10:25 [facility] COMPARISON: CT ABDOMEN & PELVIS W/O CONTRAST, October 15, 2016, 10:49. CT THORAX W/O CONTRAST, July 09 7, 18:34. CT ABDOMEN & PELVIS W CONTRAST, July 15, 2016, 10:02. INDICATIONS : GI bleed and cirrhosis. Abdominal pain. IV CONTRAST: 70 cc Omnipaque 350 (iohexol) IV ORAL CONTRAST: No oral contrast ingested. RADIATION DOSE: 16.21 CTDIvol (mGy) MEDICAL HISTORY : Cardiovascular disease. Hypertension. SURGICAL HISTORY : None. ENCOUNTER: Initial ACUITY: 1 day PAIN SCALE: Non-responsive LOCATION: abdomen TECHNIQUE: Volumetric scanning of the abdomen and pelvis was performed. Using automated exposure control and ad justment of the mA and/or kV according to patient size, radiation dose was kept as low as reasonably achievable to obtain optimal diagnostic quality images. DICOM format image data is available electro nically for review and comparison. FINDINGS: LOWER LUNGS: Small bilateral pleural effusions. Dependent bilateral lower lobe atelectasis versus consolidation. LIVER: Mild diffuse nodularity of the liver capsule suggesting cirrhosis. Ill-defined rounded hypodensity in the posterior right lobe of the liver near the dome of the diaphragm measuring 4.0 x 2.8 cm. Finding does not have the definitive characteristics of a cyst. It is not seen on prior examinations. SPLEEN: Multiple calcified granulomas in the spleen. The wedge shaped hypodensity in the lateral aspect of th e spleen measuring 5 cm either representing an infarct. This finding is new. PANCREAS: Within normal limits. KIDNEYS: Normal in size and shape. There is no mass, stone or hydronephrosis. ADRENAL GLANDS: Within normal limits. VASCULAR: There is no aortic aneurysm. BOWEL/MESENTERY: No evidence of bowel dilatation. Moderate amount of ascites involving all 4 quadrants. Appendix withi n normal limits. No free air. ABDOMINAL WALL: Within normal limits. RETROPERITONEUM: There is no lymphadenopathy. BLADDER: Luis catheter in place. REPRODUCTIVE: Within normal limits. INGUINAL: There is no lymphadenopathy or hernia. MUSCULOSKELETAL: Degenerative findings lower lumbar spine. CONCLUSION: 1. New 4 cm right lobe hepatic mass concerning for neoplasm. It is near the dome of the diaphragm. 2. 5 cm abnormality in the spleen likely representing an infarct. 3. Nodular contour liver capsule suggesting cirrhosis. 4. Moderate ascites and small bilateral pleural effusions. Michael R Zarate, MD on September 13, 2017 at 10:50 Board Certified Radiologist. This report was verified electronically.
--- NOTE | 2017-09-13 12:49 | HHI.GIFU ---
Subjective Remarks Pt remains sedated and mechanically ventilated via ETT. No longer has NGT. Per RN pt has not had a BM. (Wanda Montana) Objective Vitals I&O Vital Signs Date Time Temp Pulse Resp B/P (MAP) Pulse Ox O2 Delivery O2 Flow Rate FiO2 09/13/17 11:39 97 60 09/13/17 10:00 88 100 09/13/17 10:00 112 09/13/17 09:01 95 60 09/13/17 08:00 114 09/13/17 07:00 98.7 116 22 109/69 (82) 94 09/13/17 06:00 117 09/13/17 04:00 116 09/13/17 03:50 93 60 09/13/17 03:00 98.5 118 22 105/63 (77) 93 09/13/17 02:00 118 09/13/17 00:15 94 60 09/13/17 00:00 101 09/12/17 23:02 93 Ventilator 60 09/12/17 23:00 98.3 102 22 105/63 (77) 93 09/12/17 22:00 119 09/12/17 20:14 95 50 09/12/17 20:00 101 09/12/17 19:00 98.7 102 24 99/67 (78) 96 09/12/17 18:00 100 09/12/17 16:00 111 09/12/17 15:00 97.7 110 23 100/64 (76) 99 09/12/17 14:37 99 70 09/12/17 14:00 114 22 99/62 (74) 92 09/12/17 14:00 114 09/12/17 13:00 120 22 99/61 (74) 92 I/O 09/12/17 09/12/17 09/12/17 09/13/17 09/13/17 09/13/17 07:00 15:00 23:00 07:00 15:00 23:00 Intake Total 2065.2 ml 726 ml 1830 ml 3961 ml Output Total 470 ml 415 ml 220 ml Balance 1595.2 ml 726 ml 1415 ml -220 ml 3961 ml Intake IV Total 2065.2 ml 626 ml 1830 ml 3561 ml Packed Cells 400 ml Other 100 ml Output Urine Total 350 ml 225 ml 220 ml Stool Total 0 ml 0 ml 0 ml Gastric Drainage Total 120 ml 190 ml # Bowel Movements 0 0 0 Laboratory Laboratory Tests Test 09/12/17 13:28 09/12/17 13:50 09/12/17 16:21 09/12/17 17:08 Blood Gas Puncture Site RT RADIAL RT RADIAL Blood Gas Patient Temperature 98.6 98.6 Blood Gas HCO3 17 17 Blood Gas Base Excess -11.5 -9.8 Blood Gas Oxygen Saturation 91 92 Arterial Blood pH 7.08 7.21 Arterial Blood Partial Pressure CO2 60 44 Arterial Blood Partial Pressure O2 90 82 Arterial Blood Oxygen Content 12.4 11.8 Arterial Blood Carboxyhemoglobin 1.3 1.5 Arterial Blood Methemoglobin 1.6 1.5 Blood Gas Hemoglobin 9.6 9.0 Oxygen Delivery Device VENTILATOR VENTILATOR Blood Gas Ventilator Setting 550/22/5 A/C Blood Gas Inspired Oxygen 70 50 Hemoglobin 9.4 Hematocrit 30.5 Fibrinogen 162 Test 09/12/17 22:10 09/13/17 04:11 09/13/17 07:40 09/13/17 09:40 Hemoglobin 8.6 8.4 8.5 Hematocrit 28.0 26.8 27.3 White Blood Count 14.2 Red Blood Count 3.29 Mean Corpuscular Volume 82.9 Mean Corpuscular Hemoglobin 25.7 Mean Corpuscular Hemoglobin Concent 31.0 Red Cell Distribution Width 19.8 Platelet Count 99 Mean Platelet Volume 7.6 Neutrophils (%) (Auto) 85.8 Lymphocytes (%) (Auto) 5.3 Monocytes (%) (Auto) 8.0 Eosinophils (%) (Auto) 0.4 Basophils (%) (Auto) 0.5 Neutrophils # (Auto) 12.2 Lymphocytes # (Auto) 0.8 Monocytes # (Auto) 1.1 Eosinophils # (Auto) 0.1 Basophils # (Auto) 0.1 CBC Comment AUTO DIFF Differential Comment AUTO DIFF CONFIRMED Platelet Estimate LOW Platelet Morphology Comment NORMAL Blood Urea Nitrogen 25 Creatinine 1.78 Random Glucose 81 Total Protein 7.1 Albumin 3.7 Calcium Level 7.8 Phosphorus Level 4.5 Magnesium Level 1.8 Alkaline Phosphatase 65 Aspartate Amino Transf (AST/SGOT) 70 Alanine Aminotransferase (ALT/SGPT) 25 Total Bilirubin 4.2 Sodium Level 137 Potassium Level 4.9 Chloride Level 111 Carbon Dioxide Level 16.9 Anion Gap 9 Estimat Glomerular Filtration Rate 39 Prothrombin Time 14.7 Prothromb Time International Ratio 1.5 Lactic Acid Level 1.3 Ammonia 86 Test 09/13/17 09:50 Blood Gas Puncture Site LT RADIAL Blood Gas Patient Temperature 98.6 Blood Gas HCO3 14 Blood Gas Base Excess -12.2 Blood Gas Oxygen Saturation 95 Arterial Blood pH 7.19 Arterial Blood Partial Pressure CO2 39 Arterial Blood Partial Pressure O2 115 Arterial Blood Oxygen Content 11.6 Arterial Blood Carboxyhemoglobin 1.2 Arterial Blood Methemoglobin 1.0 Blood Gas Hemoglobin 8.5 Oxygen Delivery Device VENTILATOR Blood Gas Ventilator Setting AC/VT550/R22/PEEP5 Blood Gas Inspired Oxygen 100 Imaging Last Impressions Chest X-Ray 09/12/17 0000 Signed Impressions: Service Date/Time: Tuesday, September 12, 2017 04:18 - CONCLUSION: No significant interval change. Tera Mishra MD Abdomen/Pelvis CT 09/12/17 0000 Signed Impressions: Service Date/Time: Wednesday, September 13, 2017 10:25 - CONCLUSION: 1. New 4 cm right lobe hepatic mass concerning for neoplasm. It is near the dome of the diaphragm. 2. 5 cm abnormality in the spleen likely representing an infarct. 3. Nodular contour liver capsule suggesting cirrhosis. 4. Moderate ascites and small bilateral pleural effusions. Michael Zarate MD Physical Exam HEENT: Normocephalic; atraumatic CHEST: Mechanically ventilated via ETT CARDIAC: Tachycardic ABDOMEN: Distended, firm, bowel sounds active EXTREMITIES: No clubbing, cyanosis, or edema. SKIN: (+) jaundice CURTAIN MENDER: Sedated (Wanda Montana) Assessment and Plan Plan Assessment: - Alcoholic cirrhosis- S/P EGD with banding of varices yesterday. EGD (09/12) -- > Esophageal varices grade 2 s/p band ligation, portal gastropathy, clot fundus. H/H stable, but low since yesterday. Currently 8.5/27.3 S/P 4 U PRBC transfused 2 days ago. No obvious continuation of GIB. Per RN pt has not had BM, no longer has NGT. May extubate pt from GI standpoint. - Transaminitis- consistent with elevation secondary to ETOH. AST-70 ALT-25 Alk phos-65 T bili-4.2 DF- 11. Ammonia-86 Pt has Lactulose ordered PRN will ordered it to be scheduled. CT abdomen and pelvis W IV contrast (09/13) noted --> New 4 cm right lobe hepatic mass concerning for neoplasm. It is near the dome of the diaphragm. 5 cm abnormality in the spleen likely representing an infarct. Nodular contour liver capsule suggesting cirrhosis. Moderate ascites and small bilateral pleural effusions. Will order tumor markers and liver biopsy. MRA to assess splenic infarct. Pt cannot receive anticoagulation. Plan: - MRA - IR consult for liver biopsy - Tumor markers - Lactulose scheduled - Repeat ammonia in AM - Monitor labs - Transfuse as needed - DC Octreotide gtt - Continue Protonix BID - Supportive care - Further recommendations to follow Pt has been seen and examined by myself and Dr. León and this note is written on her behalf (Wanda Montana) Physician Comments seen, examined agree with above (Zeinab León MD) Wanda Montana Sep 13, 2017 12:49 Zeinab León MD Sep 13, 2017 17:32
[2017-09-13] MEDS ORDERED: AMIODARONE 150 MG/D5W 97 ML BOLUS 10 MINUTES IV ONE ×2 (13:45)
[2017-09-13] MEDS ORDERED: AMIODARONE INJ 450 MG in D5W (EXCEL BAG) INJ 241 ML IV PRN (13:45)
[2017-09-13 14:29] LABS: CARCINOEMBRYONIC ANTIGEN 2.2 NG/ML (0.2-5.0)
[2017-09-13 15:05] LABS: CA 19-9 11.7 U/ML (0.0-35.0)
[2017-09-13] MEDS ORDERED: GADOBENATE DIM PF 529 MG/ML 10ML VIAL (for RAD MRI) IV ONE (17:28)
--- NOTE | 2017-09-13 18:08 | RADRPT ---
EXAM DATE/TIME: 09/13/2017 16:46 [facility] COMPARISON: CT ABDOMEN & PELVIS W/O CONTRAST, October 15, 2016, 10:49. CT ABDOMEN & PELVIS W CONTRAST, September 13, 2017, 10:25. INDICATIONS : Splenic infarct. CONTRAST: 30 cc Multihance (gadobenate) IV MEDICAL HISTORY : Hypertension. Chronic obstructive pulmonary disease. SURGICAL HISTORY : EGD with band ligation X5 ENCOUNTER: Initial ACUITY: 1 day PAIN SCORE: 0/10 LOCATION: Abdomen TECHNIQUE: Bolus infused MR angiography was performed. The data was postprocessed with a variety of visualizati on algorithms including full-volume maximum-intensity projection, multiplanar sliding thin slab refor mation, and curved planar reformation. FINDINGS: ABDOMINAL AORTA: The lumen is smooth without significant narrowing or aneurysmal dilatation. The proximal celiac and s uperior mesenteric arteries are patent and normal in diameter. RENAL ARTERIES: There are solitary renal arteries bilaterally. No evidence of ostial or segmental stenosis. KIDNEYS: There is symmetric renal size. There is homogeneous enhancement in the parenchyma. BIFURCATION: Normal. RIGHT PELVIS: The right common iliac, internal iliac, and external iliac vessels are patent without luminal irregul arity. LEFT PELVIS: The left common iliac, internal iliac, and external iliac vessels are patent and without luminal irre gularity. RETROPERITONEUM: The adrenal glands are unremarkable. No adenopathy seen. A focal area of infarction is again noted involving the posterior spleen measuring up to approxi mately 4 x 3 cm in greatest diameter. This corresponds to the abnormality on CT. This demonstrates no enhancement after gadolinium administration. Ascitic fluid is noted throughout the abdomen. There ar e bilateral pleural effusions right greater than left. The main splenic artery is intact. The branch arterial vessels are not well visualized. CONCLUSION: 1. Moderate size central splenic infarct. The main splenic artery is intact. The segmental arterial b ranch vessels are not well visualized. 2. Moderate ascitic fluid and small bilateral pleural effusions right greater than left. Jamir Crawford MD on September 13, 2017 at 17:56 Board Certified Radiologist. This report was verified electronically.
[2017-09-13] MEDS: LACTULOSE SYRUP 20 GM/30 ML CUP PO SCH (19:50)
[2017-09-13] MEDS: MIDAZOLAM 100 MG/100 ML INJ 100 ML IV PRN (20:52)
[2017-09-13] MEDS: fentaNYL DRIP 250 ML IV PRN (20:53)
[2017-09-13] MEDS ORDERED: SODIUM BICARBONATE 8.4% SOLN 50 MEQ/50 ML VIAL IV ONE (22:30)
--- NOTE | 2017-09-13 22:35 | RADRPT ---
EXAM DATE/TIME: 09/13/2017 22:07 [facility] COMPARISON: CHEST SINGLE AP, September 12, 2017, 4:18. INDICATIONS : Respiratory distress. MEDICAL HISTORY : Cardiovascular disease. Hypertension SURGICAL HISTORY : None. ENCOUNTER: Subsequent ACUITY: 3 days PAIN SCORE: Non-responsive. LOCATION: Bilateral chest FINDINGS: Small effusion with mild consolidation developing right base. Small effusion and minimal consolidatio n left base unchanged. No pneumothorax. Mild cardiomegaly is stable. Endotracheal tube tip is approximately 5 cm above the yoli. Nasogastric tube has been removed. Left IJ central venous catheter remains in place, tip in the superior vena cava. CONCLUSION: Developing consolidation and pleural effusion at the right base. Nasogastric tube out. Otherwise no c hange. Oswaldo Nuñez MD on September 13, 2017 at 22:32 Board Certified Radiologist. This report was verified electronically.
[2017-09-13] MEDS ORDERED: SODIUM BICARBONATE 8.4% INJ 150 MEQ in WATER STERILE FOR INJ 850 ML IV SCH (23:15)
[2017-09-13] MEDS ORDERED: FUROSEMIDE 40 MG/4 ML VIAL IV PUSH ONE (23:30)
[2017-09-13] MEDS ORDERED: CISATRACURIUM BESYLATE 20 MG/10 ML VIAL IV PUSH ONE (23:30)
--- NOTE | 2017-09-13 23:30 | PD.PROCEDR ---
Procedure Note Procedure Procedure: Ultrasound-guided abdominal paracentesis Preoperative diagnosis: Liver cirrhosis, tense ascites, acute respiratory failure on mechanical ventilation Postop diagnosis: Same Emergent procedure, informed consent not obtained as patient dropped O2 sats in the 70s with tense ascites requiring decompression Anesthesia used: 1% lidocaine for local infiltration anesthesia Procedure: Ultrasound was used to locate ascites in left lower quadrant After sterile prepping and draping using 1% lidocaine for local infiltration anesthesia, peritoneal cavity was entered using thoracentesis needle and thoracentesis catheter was advanced into the peritoneal cavity as evidenced by return of straw-colored ascites fluid and needle was removed. After connecting tubing, peritoneal fluid was drained using Vacutainer bottles. 1.75 Liters of ascitic fluid was drained. Specimen was collected for lab studies and cultures. Subsequently drainage catheter was removed and dressing was applied to the site. Patient tolerated procedure well with no immediate complications noted. Regan Sanders MD Sep 13, 2017 23:30
[2017-09-14] VITALS (21 sets, daily range): BP systolic 66–95; BP diastolic 41–65; PULSE 75–121; RESP 22; TEMP 94.9–99.5; O2SAT 81–100
[2017-09-14 00:01] LABS: HEMOGLOBIN 8.2 GM/DL (13.0-17.0); MEAN CELL VOLUME 85.3 FL (80.0-100.0); MEAN CORPUSCULAR HGB CONC 30.4 % (32.0-36.0); MEAN PLATELET VOLUME 8.2 FL (7.0-11.0); PLATELET COUNT 104 TH/MM3 (150-450); RED BLOOD COUNT 3.16 MIL/MM3 (4.50-5.90); WHITE BLOOD COUNT 12.5 TH/MM3 (4.0-11.0)
[2017-09-14] MEDS: CISATRACURIUM INJ 100 MG in SODIUM CHLOR 0.9% 250 ML INJ 250 ML IV PRN ×2 (00:04→17:00)
[2017-09-14 00:39] LABS: ALBUMIN 4.2 GM/DL (3.4-5.0); AST (GOT) 66 U/L (15-37); BICARBONATE 17.4 MEQ/L (21.0-32.0); BLOOD UREA NITROGEN 31 MG/DL (7-18); CALCIUM 8.3 MG/DL (8.5-10.1); CHLORIDE 110 MEQ/L (98-107); CREATININE 2.38 MG/DL (0.60-1.30); GLOMERULAR FILTRATION RATE 28 ML/MIN (>89); GLUCOSE,RANDOM 91 MG/DL (74-106); SODIUM (NA) 138 MEQ/L (136-145)
[2017-09-14 00:40] LABS: ALT (GPT) 26 U/L (12-78)
[2017-09-14 00:41] LABS: TOTAL PROTEIN,PERITONEAL FLUID 2.2 GM/DL
[2017-09-14 00:45] LABS: ALKALINE PHOSPHATASE 60 U/L (45-117); TOTAL BILIRUBIN ADULT 5.5 MG/DL (0.2-1.0); TOTAL PROTEIN 7.4 GM/DL (6.4-8.2)
[2017-09-14] MEDS: RESP: ALBUTEROL 2.5 MG/IPRATROPIUM 0.5 MG NEB (PRN) INH (00:47)
[2017-09-14 01:02] LABS: TROPONIN I 0.81 NG/ML (0.02-0.05)
[2017-09-14 01:09] LABS: PERITONEAL LYMPHS 14 %; PERITONEAL MESOTHELIAL 1 %; PERITONEAL MONOS 3 %; PERITONEAL POLYS(SEGS) 82 %
[2017-09-14 01:10] LABS: PERITONEAL RBC 3964 /MM3 (0-0)
[2017-09-14] MEDS: RESP: ALBUTEROL 2.5 MG/IPRATROPIUM 0.5 MG NEB (SCH) INH ×3 (03:44→19:52)
[2017-09-14] MEDS: CHLORHEXIDINE GLUCONATE 2 % 1 PACK (2 CLOTHS) TOP SCH (04:00)
[2017-09-14 05:26] LABS: AUTOMATED NEUTROPHIL # 12.8 TH/MM3 (1.8-7.7); BASOPHIL # 0.1 TH/MM3 (0-0.2); BASOPHIL % 0.5 % (0.0-2.0); HEMATOCRIT 27.4 % (39.0-51.0); HEMOGLOBIN 8.5 GM/DL (13.0-17.0); LYMPH % 3.6 % (9.0-44.0); LYMPHOCYTE # 0.5 TH/MM3 (1.0-4.8); MEAN CELL VOLUME 84.9 FL (80.0-100.0); MEAN CORPUSCULAR HEMOGLOBIN 26.4 PG (27.0-34.0); MEAN PLATELET VOLUME 8.1 FL (7.0-11.0); MONO % 7.3 % (0.0-8.0); MONOCYTE # 1.1 TH/MM3 (0-0.9); NEUT % 88.6 % (16.0-70.0); PLATELET COUNT 108 TH/MM3 (150-450); RED BLOOD COUNT 3.22 MIL/MM3 (4.50-5.90); RED CELL DISTRIBUTION WIDTH 20.4 % (11.6-17.2); WHITE BLOOD COUNT 14.5 TH/MM3 (4.0-11.0)
[2017-09-14 05:42] LABS: ALBUMIN 4.2 GM/DL (3.4-5.0); ALT (GPT) 31 U/L (12-78); AST (GOT) 86 U/L (15-37); BICARBONATE 16.7 MEQ/L (21.0-32.0); BLOOD UREA NITROGEN 32 MG/DL (7-18); CALCIUM 8.4 MG/DL (8.5-10.1); CHLORIDE 110 MEQ/L (98-107); CREATININE 2.57 MG/DL (0.60-1.30); GLOMERULAR FILTRATION RATE 25 ML/MIN (>89); GLUCOSE,RANDOM 108 MG/DL (74-106); SODIUM (NA) 138 MEQ/L (136-145)
[2017-09-14 05:45] LABS: ALKALINE PHOSPHATASE 62 U/L (45-117); TOTAL BILIRUBIN ADULT 6.2 MG/DL (0.2-1.0); TOTAL PROTEIN 7.3 GM/DL (6.4-8.2)
[2017-09-14] MEDS ORDERED: FUROSEMIDE 40 MG/4 ML VIAL IV PUSH SCH (06:00)
[2017-09-14 06:29] LABS: TROPONIN I 0.81 NG/ML (0.02-0.05)
[2017-09-14] MEDS: PANTOPRAZOLE SODIUM 40 MG VIAL IV PUSH SCH ×2 (06:37→17:55)
[2017-09-14] MEDS: AMIODARONE INJ 450 MG in SODIUM CHLOR 0.9% (EXCEL) INJ 241 ML IV PRN ×2 (06:38→18:01)
[2017-09-14] MEDS: CHLORHEXIDINE 0.12% (ORAL KIT) 15 ML CUP MT SCH ×2 (08:00→20:00)
[2017-09-14 08:08] LABS: INTERNATIONAL NORMALIZED RATIO 1.7 RATIO; PROTHROMBIN TIME - PATIENT 17.7 SEC (9.8-11.6)
--- NOTE | 2017-09-14 08:44 | RADRPT ---
EXAM DATE/TIME: 09/14/2017 07:47 [facility] COMPARISON: CHEST SINGLE AP, September 13, 2017, 22:07. INDICATIONS : Shortness of breath. MEDICAL HISTORY : Cardiovascular disease. Hypertension SURGICAL HISTORY : None. ENCOUNTER: Initial ACUITY: 1 day PAIN SCORE: Non-responsive. LOCATION: Bilateral chest FINDINGS: Single AP view of the chest. Endotracheal tube and left IJ central venous catheter remain in place. T here is been interval decrease in right lower lung opacity. Left lower lung opacity unchanged. Small left pleural effusion again seen. No evidence of pneumothorax. CONCLUSION: Decrease in right lower lung opacity. No change in left lower lung consolidation/atelectasis and smal l left pleural effusion. Michael Zarate MD on September 14, 2017 at 8:41 Board Certified Radiologist. This report was verified electronically.
--- NOTE | 2017-09-14 08:55 | HHI.CCPN ---
Subjective Remarks/Hospital Course 66-year-old unfortunate gentleman with a long-time alcoholic dependency with liver cirrhosis. [facility] is [facility]. He denies ever having endoscopy. He drinks heavily on a daily basis. He denies illicit drug use. He's been having melena for several days. He started having hematemesis today. He started vomiting up bright red blood. Paramedics estimated 500 cc of bright red blood on the ground at home. He arrives with a pulse of 110 and a blood pressure 100 systolic. In the emergency department he continued vomiting copious amounts of blood, unable to protect his airway, and was intubated by ED attending. Subjective: 09/12: Afebrile. Hemodynamically stable. The patient has had approximately 100 cc bloody gastric output overnight. Patient consents remains on fentanyl and Versed sedation for ventilator synchrony. No melanotic stools throughout the night. Patient continues on serial monitoring of H&H. 09/13: Afebrile. Attempts made to transfer patient at [address] of the abdomen and pelvis unsuccessful secondary to hypotension, despite the patient having norepinephrine infusion ordered, not initiated by night RN. CT was abruptly aborted patient was transferred back to ICU. This a.m. patient noted urinary output continues to decrease creatinine significantly elevated. Abdomen extremely taut, bowel sounds not appreciated. CT of abdomen and pelvis pending. Patient remains on fentanyl and Versed infusions for ventilator synchrony. Planned to consider diminution of Fentanyl and initiate Propofol and Versed for sedation. 09/14: clinically worsened overnight. emergent paracentesis done, drained 1.7L. remains hypoxic. bedside Critical care ultrasound with new RV failure, severe pulmonary hypertension, severe volume overload and new acute vortc-ir-knxk intra -cardiac shunt by bedside bubble study: formal echo pending. remains unstable in shock with lactic acidosis and severe metabolic acidosis. paralyzed. worsening. Objective Vital Signs Date Time Temp Pulse Resp B/P (MAP) Pulse Ox O2 Delivery O2 Flow Rate FiO2 09/14/17 07:13 77 80/52 09/14/17 04:00 97.6 22 94 09/14/17 04:00 100 09/12/17 23:02 Ventilator 09/11/17 17:12 3.00 Intake and Output 09/14/17 09/14/17 09/15/17 08:00 16:00 00:00 Intake Total 829 ml Output Total 1850 ml Balance -1021 ml Result Diagram: 09/14/17 0513 09/14/17 0513 Other Results Laboratory Tests Test 09/13/17 09:50 09/13/17 21:50 09/14/17 00:49 09/14/17 06:19 Blood Gas Puncture Site LT RADIAL RT RADIAL LT RADIAL LT RADIAL Blood Gas Patient Temperature 98.6 98.6 98.6 98.6 Blood Gas HCO3 14 mmol/L (22-26) 13 mmol/L (22-26) 14 mmol/L (22-26) 15 mmol/L (22-26) Blood Gas Base Excess -12.2 mmol/L (-2-2) -14.2 mmol/L (-2-2) -13.4 mmol/L (-2-2) -13.7 mmol/L (-2-2) Blood Gas Oxygen Saturation 95 % (90-100) 78 % (90-100) 81 % (90-100) 80 % ( 90-100) Arterial Blood pH 7.19 (7.380-7.420) 7.18 (7.380-7.420) 7.11 (7.380-7.420) 7.07 (7.380-7.420) Arterial Blood Partial Pressure CO2 39 mmHg (38-42) 36 mmHg (38-42) 47 mmHg (38-42) 52 mmHg (38-42) Arterial Blood Partial Pressure O2 115 mmHg (61-120) 52 mmHg (61-120) 61 mmHg (61-120) 61 mmHg (61-120) Arterial Blood Oxygen Content 11.6 Vol % (12.0-20.0) 9.4 Vol % (12.0-20.0) 9.9 Vol % (12.0-20.0) 9.9 Vol % (12.0-20.0) Arterial Blood Carboxyhemoglobin 1.2 % (0-4) 1.2 % (0-4) 1.1 % (0-4) 1.1 % (0-4) Arterial Blood Methemoglobin 1.0 % (0-2) 1.4 % (0-2) 1.3 % (0-2) 1.2 % (0-2) Blood Gas Hemoglobin 8.5 G/DL (12.0-16.0) 8.6 G/DL (12.0-16.0) 8.6 G/DL (12.0-16.0) 8.7 G/DL (12.0-16.0) Oxygen Delivery Device VENTILATOR AMBU VENTILATION VENTILATOR VENTILATOR Blood Gas Ventilator Setting AC/VT550/R22/PEEP5 SEE COMMENT SEE COMMENT Blood Gas Inspired Oxygen 100 % 100 % 100 % 100 % Blood Gas Liter Flow 15 L/M Imaging Last 24 hours Impressions Chest X-Ray 09/11/17 0000 Signed Impressions: Service Date/Time: September 17:51 - CONCLUSION: 1. Developing left base pneumonia and tiny effusion. Right lung clear. 2. Appropriate position of the endotracheal tube and nasogastric tube. Oswaldo Nuñez MD Objective Remarks GENERAL: Ill-appearing patient with ascites sedated and intubated, critically ill SKIN: Focused skin assessment reveals no rash and nodules. Skin is pale and dry. HEAD: Atraumatic. Normocephalic. EYES: Pupils equal and round. No scleral icterus. No injection or drainage. ENT: No nasal bleeding or discharge. Mucous membranes pink and moist. NECK: Trachea midline. left IJ TLC in place, site clean and dry. CARDIOVASCULAR: Regular rate and rhythm. sinus by tele. RESPIRATORY: intubated, paralyzed. prvc, fio2 100%. peak pressures 34 cmH2o. equal chest rise. GASTROINTESTINAL: Abdomen soft, moderately distended. no guarding. bladder pressure 14 cmH2o. MUSCULOSKELETAL: No obvious deformities. No clubbing. No cyanosis. 1+ peripheral edema. NEUROLOGICAL: Sedated, intubated, paralyzed. RASS -5. Procedures Bedside Critical Echocardiogram 09/14: grossly normal left ventricular function. Severe Right ventricular dilation and depression. Severe pulmonary hypertension. directly measured RAP 23 mmHg. TR gradient 32 mmHg, estimating RVSP of 55 mmHg. Evidence of septal flattening throughout cardiac cycle suggestive of RV volume and pressure overload. IVC is dilated at 2.3 cm and does not vary with respiration (paralyzed patient). no pericardial effusion. + bubble study and evidence of immediate cogkx-nb-vkbb shunting by bubble study suggestive of PFO with cphvk-am-exmz shunt. Date of Insertion: Sep 11, 2017 A/P Assessment and Plan Assessment: This is a 67yM who originally presented with hemodynamically significant esophageal variceal bleeding, now stabilized s/p banding, course is now complicated by acute hypoxic respiratory failure secondary to severe pulmonary hypertension, PFO with quohv-bx-ydia shunting, RV failure, Cardiogenic shock. He has evidence of multi-organ system failure. He remains very critically ill and has a very guarded prognosis. Will attempt to optimize his right ventricular function with inotropes and decrease PVR. Severe RV dysfunction could be related to acute PE, although given his clinical course over GI bleeding and coagulopathy secondary to liver disease, highly unlikely. will not anticoagulate given his very recent life-threatening GI bleed. Plan by systems: Neurologic: Metabolic encephalopathy Hepatic encephalopathy - continue versed, fentanyl while sedated and intubated and hypoxic - will talk with GI about instituting lactulose and rifaximin when able. Respiratory: Acute hypoxic respiratory failure Severe pulmonary hypertension Acute Pulmonary edema - vent bundle, hob at 30 degrees - nebs - continue neuromuscular blockade x another 24h. - start Flolan at 50 ng/kg/min - diuresis as below. - no weaning of mechanical ventilation until hypoxemia improves. - trend abg Cardiovascular: Cardiogenic shock Severe Right ventricular dysfunction Severe pulmonary hypertension Frbox-gb-daer intracardiac shunt, suspected PFO Atrial fibrillation with rapid ventricular response Elevated Troponin/Type II NSTEMI secondary to Demand Ischemia - start milrinone at 0.375 mcg/kg/min - inhaled flolan - lasix drip at 20mg/hr, 200mg iv bolus - iv diuril 500mg x 1. - trend lactates - trend abg - troponins stable x 2, do not need to continue to trend, likely secondary to RV failure and pulmonary hypertension. - continue iv amiodarone drip. - ideally would need to decrease right-sided pressures to close PFO, but unable to do this due to severe hypoxemia and elevated intra-thoracic pressures in order to maintain oxygenation. - added vasopressin at 0.04 units/min - continue to wean levophed for goal map > 65 mmHg. Renal: Acute kidney injury - multifactorial secondary to cardiogenic shock, volume overload, intra- abdominal hypertension, possible hepatorenal syndrome, pre-renal ATN from hemorrhagic shock. -- Strict I/Os - keep harvey - diuresis as above. FEN/GI: Acute intravascular volume overload Severe anion-gap metabolic acidosis Lactic Acidosis Portal Hypertension Cirrhosis/End-stage Liver Disease Possible hypodensity in the right hepatic lobe Esophageal Varices Hyperkalemia Intra-abdominal hypertension Acute protein calorie malnutrition - severe Hypoalbuminemia - trend abg - liver ultrasound to confirm and eval liver mass - GI consulted and following, will need enteral access - trend bladder pressures - lasix as above for hyperkalemia - hold off on propranolol for portal hypertension given instability. will need before discharge. - MELD today: 28. worse today. - NPO while in shock. Heme/ID: Anemia secondary to acute blood loss Hemorrhagic shock secondary to esophageal variceal bleeding - resolved. Coagulopathy secondary to end-stage liver disease thrombocytopenia secondary to end-stage liver disease - does not meet transfusion triggers at this time - goal hgb > 7 - trend h&H - trend daily coags - 4T score low probability for HIT. - continue recephin for SBP prophylaxis. Endocrine: Hyperglycemia of Critical Illness -- SSI Prophylaxis: GI Prophylaxis IV BID PPI DVT Prophylaxis -- SCDs holding pharmacologic dvt prophylaxis given acute GI bleeding. Lines: 09/13 left IJ TLC 09/14 left radial art line Harvey Dispo: Remain in ICU. very critically ill and worsening. This patient remains critically ill with one or more organ systems which are or may become a threat to life. I have spent in excess of 107 minutes discontinuously in the care and management of this patient. This time is exclusive of procedures, and includes, but is not limited to, evaluation of the patient, review of the medical record, discussions with family, consultants, nursing staff, or respiratory therapy, and documentation in the medical record. Jonh Bran MD Sep 14, 2017 08:55
[2017-09-14] MEDS: DOCUSATE SODIUM 50 MG/SENNA 8.6 MG TAB PO SCH ×2 (09:00→20:21)
[2017-09-14] MEDS: BUDESONIDE-FORMOTEROL 80/4.5 MCG INHALER INH SCH ×2 (09:00→20:21)
[2017-09-14] MEDS: LACTULOSE SYRUP 20 GM/30 ML CUP PO SCH (09:00)
[2017-09-14] MEDS ORDERED: CHLOROTHIAZIDE SOD 500 MG VIAL IV ONE (09:00)
[2017-09-14] MEDS ORDERED: FUROSEMIDE 40 MG/4 ML VIAL IV PUSH ONE (09:15)
[2017-09-14] MEDS: SODIUM CHLORIDE 0.9% FLUSH 10 ML FLUSH IV FLUSH SCH ×2 (09:21→20:21)
[2017-09-14] MEDS: ARTIFICIAL TEARS OPTH SOLN 15 ML BTL EACH EYE SCH ×3 (09:21→16:59)
--- NOTE | 2017-09-14 09:29 | HHI.GIFU ---
Subjective Remarks Pt remains sedated and mechanically ventilated via ETT. Per RN pt had drop in O2 sats last night requiring an emergent paracentesis. (Wanda Montana) Objective Vitals I&O Vital Signs Date Time Temp Pulse Resp B/P (MAP) Pulse Ox O2 Delivery O2 Flow Rate FiO2 09/14/17 07:13 77 80/52 09/14/17 06:38 83/54 09/14/17 06:00 90 09/14/17 06:00 91 84/55 (65) 09/14/17 05:52 91 84/55 (65) 09/14/17 04:00 97.6 97 22 91/62 (72) 94 09/14/17 04:00 100 09/14/17 04:00 97 09/14/17 03:44 84 100 09/14/17 02:00 92 09/14/17 00:36 100 09/14/17 00:36 82 100 09/14/17 00:14 84 88/59 09/14/17 00:00 85 09/14/17 00:00 97.5 85 22 94/65 (75) 93 09/13/17 23:05 85 100 09/13/17 23:05 100 09/13/17 22:10 100 09/13/17 22:00 80 09/13/17 21:16 89 100 09/13/17 20:00 97.5 88 26 97/59 (72) 93 09/13/17 20:00 88 09/13/17 20:00 100 09/13/17 19:30 89 96/68 09/13/17 18:00 98.7 85 25 94/60 (71) 88 09/13/17 18:00 85 94/60 (71) 09/13/17 18:00 85 09/13/17 16:15 91 100 09/13/17 16:00 88 09/13/17 15:36 94 60 09/13/17 14:00 146 09/13/17 14:00 146 96/64 09/13/17 13:45 152 99/64 09/13/17 12:00 98.7 98 22 106/72 (83) 95 09/13/17 12:00 98 09/13/17 11:39 97 60 09/13/17 10:00 88 100 09/13/17 10:00 112 I/O 09/13/17 09/13/17 09/13/17 09/14/17 09/14/17 09/14/17 07:00 15:00 23:00 07:00 15:00 23:00 Intake Total 4182 ml 1500 ml 1329 ml Output Total 220 ml 350 ml 1850 ml Balance -220 ml 4182 ml 1150 ml -521 ml Intake Oral 0 ml IV Total 3782 ml 1500 ml 1329 ml Packed Cells 400 ml Output Urine Total 220 ml 350 ml 100 ml Stool Total 0 ml Peritoneal Fluid 1750 ml # Bowel Movements 0 0 Laboratory Laboratory Tests Test 09/13/17 09:40 09/13/17 09:50 09/13/17 12:55 09/13/17 21:50 Prothrombin Time 14.7 Prothromb Time International Ratio 1.5 Lactic Acid Level 1.3 Ammonia 86 Blood Gas Puncture Site LT RADIAL RT RADIAL Blood Gas Patient Temperature 98.6 98.6 Blood Gas HCO3 14 13 Blood Gas Base Excess -12.2 -14.2 Blood Gas Oxygen Saturation 95 78 Arterial Blood pH 7.19 7.18 Arterial Blood Partial Pressure CO2 39 36 Arterial Blood Partial Pressure O2 115 52 Arterial Blood Oxygen Content 11.6 9.4 Arterial Blood Carboxyhemoglobin 1.2 1.2 Arterial Blood Methemoglobin 1.0 1.4 Blood Gas Hemoglobin 8.5 8.6 Oxygen Delivery Device VENTILATOR AMBU VENTILATION Blood Gas Ventilator Setting AC/VT550/R22/PEEP5 Blood Gas Inspired Oxygen 100 100 Tumor Marker Alpha Fetoprotein 2.8 Carcinoembryonic Antigen 2.2 CA 19-9 Antigen 11.7 Blood Gas Liter Flow 15 Test 09/13/17 23:00 09/13/17 23:20 09/14/17 00:49 09/14/17 05:10 Peritoneal Fluid WBC 800 Peritoneal Fluid RBC 3964 Peritoneal Fluid Neutrophils 82 Peritoneal Fluid Lymphocytes 14 Peritoneal Fluid Monocytes 3 Peritoneal Fluid Mesothelial Cells 1 Peritoneal Fluid Total Protein 2.2 Peritoneal Fluid Albumin 1.2 Peritoneal Fluid LDH 147 Peritoneal Fluid Glucose 98 White Blood Count 12.5 Red Blood Count 3.16 Hemoglobin 8.2 Hematocrit 27.0 Mean Corpuscular Volume 85.3 Mean Corpuscular Hemoglobin 26.0 Mean Corpuscular Hemoglobin Concent 30.4 Red Cell Distribution Width 20.0 Platelet Count 104 Mean Platelet Volume 8.2 Blood Urea Nitrogen 31 Creatinine 2.38 Random Glucose 91 Total Protein 7.4 Albumin 4.2 Calcium Level 8.3 Alkaline Phosphatase 60 Aspartate Amino Transf (AST/SGOT) 66 Alanine Aminotransferase (ALT/SGPT) 26 Total Bilirubin 5.5 Sodium Level 138 Potassium Level 5.1 Chloride Level 110 Carbon Dioxide Level 17.4 Anion Gap 11 Estimat Glomerular Filtration Rate 28 Lactic Acid Level 3.5 4.1 Total Creatine Kinase 308 Creatine Kinase MB 5.3 Troponin I 0.81 Blood Gas Puncture Site LT RADIAL Blood Gas Patient Temperature 98.6 Blood Gas HCO3 14 Blood Gas Base Excess -13.4 Blood Gas Oxygen Saturation 81 Arterial Blood pH 7.11 Arterial Blood Partial Pressure CO2 47 Arterial Blood Partial Pressure O2 61 Arterial Blood Oxygen Content 9.9 Arterial Blood Carboxyhemoglobin 1.1 Arterial Blood Methemoglobin 1.3 Blood Gas Hemoglobin 8.6 Oxygen Delivery Device VENTILATOR Blood Gas Ventilator Setting SEE COMMENT Blood Gas Inspired Oxygen 100 Ammonia 142 Test 09/14/17 05:13 09/14/17 06:19 09/14/17 07:45 White Blood Count 14.5 Red Blood Count 3.22 Hemoglobin 8.5 Hematocrit 27.4 Mean Corpuscular Volume 84.9 Mean Corpuscular Hemoglobin 26.4 Mean Corpuscular Hemoglobin Concent 31.0 Red Cell Distribution Width 20.4 Platelet Count 108 Mean Platelet Volume 8.1 Neutrophils (%) (Auto) 88.6 Lymphocytes (%) (Auto) 3.6 Monocytes (%) (Auto) 7.3 Eosinophils (%) (Auto) 0.0 Basophils (%) (Auto) 0.5 Neutrophils # (Auto) 12.8 Lymphocytes # (Auto) 0.5 Monocytes # (Auto) 1.1 Eosinophils # (Auto) 0.0 Basophils # (Auto) 0.1 CBC Comment DIFF FINAL Differential Comment Blood Urea Nitrogen 32 Creatinine 2.57 Random Glucose 108 Total Protein 7.3 Albumin 4.2 Calcium Level 8.4 Alkaline Phosphatase 62 Aspartate Amino Transf (AST/SGOT) 86 Alanine Aminotransferase (ALT/SGPT) 31 Total Bilirubin 6.2 Sodium Level 138 Potassium Level 5.2 Chloride Level 110 Carbon Dioxide Level 16.7 Anion Gap 11 Estimat Glomerular Filtration Rate 25 Total Creatine Kinase 254 Creatine Kinase MB 6.0 Troponin I 0.81 Blood Gas Puncture Site LT RADIAL Blood Gas Patient Temperature 98.6 Blood Gas HCO3 15 Blood Gas Base Excess -13.7 Blood Gas Oxygen Saturation 80 Arterial Blood pH 7.07 Arterial Blood Partial Pressure CO2 52 Arterial Blood Partial Pressure O2 61 Arterial Blood Oxygen Content 9.9 Arterial Blood Carboxyhemoglobin 1.1 Arterial Blood Methemoglobin 1.2 Blood Gas Hemoglobin 8.7 Oxygen Delivery Device VENTILATOR Blood Gas Ventilator Setting SEE COMMENT Blood Gas Inspired Oxygen 100 Prothrombin Time 17.7 Prothromb Time International Ratio 1.7 Activated Partial Thromboplast Time 42.3 Date/Time Source Procedure Growth Status 09/13/17 23:00 Fluid Peritoneal Fluid Gram Stain - Final Resulted 09/13/17 23:00 Fluid Peritoneal Fluid Body Fluid Culture Pending Resulted Imaging Last Impressions Chest X-Ray 09/14/17 0000 Signed Impressions: Service Date/Time: Thursday, September 14, 2017 07:47 - CONCLUSION: Decrease in right lower lung opacity. No change in left lower lung consolidation/ atelectasis and small left pleural effusion. Michael Zarate MD Abdomen Magnetic Resonance Angio 09/13/17 0000 Signed Impressions: Service Date/Time: Wednesday, September 13, 2017 16:46 - CONCLUSION: 1. Moderate size central splenic infarct. The main splenic artery is intact. The segmental arterial branch vessels are not well visualized. 2. Moderate ascitic fluid and small bilateral pleural effusions right greater than left. Jamir Crawford MD Abdomen/Pelvis CT 09/12/17 0000 Signed Impressions: Service Date/Time: Wednesday, September 13, 2017 10:25 - CONCLUSION: 1. New 4 cm right lobe hepatic mass concerning for neoplasm. It is near the dome of the diaphragm. 2. 5 cm abnormality in the spleen likely representing an infarct. 3. Nodular contour liver capsule suggesting cirrhosis. 4. Moderate ascites and small bilateral pleural effusions. Michael Zarate MD Physical Exam HEENT: Normocephalic; atraumatic CHEST: Mechanically ventilated via ETT CARDIAC: Tachycardic ABDOMEN: Distended, firm, bowel sounds active EXTREMITIES: No clubbing, cyanosis, or edema. SKIN: (+) jaundice GOLD MINER BLASTING: Sedated (Wanda Montana) Assessment and Plan Plan Assessment: - Alcoholic cirrhosis- S/P EGD with banding of varices yesterday. EGD (09/12) -- > Esophageal varices grade 2 s/p band ligation, portal gastropathy, clot fundus. H/H stable, but low since yesterday. Currently 8.5/27.3 S/P 4 U PRBC transfused 2 days ago. No obvious continuation of GIB. Per RN pt has not had BM, no longer has NGT. May extubate pt from GI standpoint. - Transaminitis- consistent with elevation secondary to ETOH. AST-70 ALT-25 Alk phos-65 T bili-4.2 DF- 11. Ammonia-86 Pt has Lactulose ordered PRN will ordered it to be scheduled. CT abdomen and pelvis W IV contrast (09/13) noted --> New 4 cm right lobe hepatic mass concerning for neoplasm. It is near the dome of the diaphragm. 5 cm abnormality in the spleen likely representing an infarct. Nodular contour liver capsule suggesting cirrhosis. Moderate ascites and small bilateral pleural effusions. Will order tumor markers and liver biopsy. MRA to assess splenic infarct. Pt cannot receive anticoagulation. (09/14)- Drop in O2 sats over night requiring emergent paracentesis, 1.75 L of dark yellow fluid removed. Peritoneal analysis. WBC-800 RBC-3964 SAAG- 3.0 Furosemide. Rocephin. Ammonia 142- Has not been receiving Lactulose because he does not have an NGT or OGT. RN does not think he will tolerate enemas. Can place small NGT. MRA abdomen (09/13) --> Moderate size central splenic infarct. The main splenic artery is intact. The segmental arterial branch vessels are not well visualized. Moderate ascitic fluid and small bilateral pleural effusions right greater than left. IR consult for liver biopsy pending AFP- 2.8 CEA-2.2 CA 19-9- 11.7 H/H stable 8.5/27.4 S/P 4 U PRBCs- last transfused on Sep 11 Plan: - IR consult for liver biopsy - Placed NGT - Lactulose BID through OG - Lactulose BID enemas - Repeat ammonia in AM - Cefepime - Flagyl - Monitor labs - Transfuse as needed - Continue Protonix BID - Continue Lasix - DC Rocephin - Supportive care - Further recommendations to follow Pt has been seen and examined by myself and Dr. León and this note is written on her behalf (Wanda Montana) Physician Comments paracentesis suggestive of portal htn, SBP-on antibiotics, no albumin as per java lead developer due to high CVP echocardiogram noted liver mass-patient DNR now, not sure if biopsy stil needed gi bleeding secondary esophageal varices s/p banding very poor prognosis consider palliative care, hospice (Zeinab León MD) Wanda Montana Sep 14, 2017 09:28 Zeinab León MD Sep 14, 2017 14:15
--- NOTE | 2017-09-14 09:38 | PD.PROCEDR ---
Procedure Note Procedure Procedure: Arterial Line Placement Left radial arterial line Diagnosis: Cardiogenic Shock Indications: Need for beat to beat hemodynamic monitoring Consent: Emergent Description of the Procedure: The left wrist was prepped and draped sterilely. 1% lidocaine was used for local anesthesia. Ultrasound guidance was used to identify the left radial artery. The anatomy of the left forearm was normal. The artery was located under direct real-time ultrasound guidance and a needle was advanced into the artery. A 20 gauge, 12 cm catheter was advanced into the artery using a modified Seldinger technique. The catheter was sutured to the skin and a sterile dressing was applied. The catheter was connected to a pressure transducer and an arterial waveform was noted. There were no immediate complications noted. There was minimal EBL. I personally performed the procedure. Jonh Bran MD Sep 14, 2017 09:38
[2017-09-14] MEDS ORDERED: ALBUMIN 25% INJ 100 ML IV SCH (10:00)
[2017-09-14] MEDS ORDERED: CIPROFLOXACIN 400 MG PREMIX 200 ML IV SCH (10:00)
--- NOTE | 2017-09-14 10:08 | RADRPT ---
EXAM DATE/TIME: 09/14/2017 08:37 [facility] COMPARISON: MRA ABDOMEN W CONTRAST, September 13, 2017, 16:46. CT ABDOMEN & PELVIS W CONTRAST, September 13, 2017, 1 0:25. INDICATIONS : Right liver mass; dome. MEDICAL HISTORY : Cardiovascular disease. Hypertension. ETOH. SURGICAL HISTORY : EGD. Colonoscopy. ENCOUNTER: Subsequent ACUITY: 2 days PAIN SCORE: Nonresponsive. LOCATION: Bilateral upper quadrant MEASUREMENTS: LIVER: 13.8 cm length COMMON DUCT: 3 mm RIGHT KIDNEY: 11.2 x 5.4 x 5.7 cm SPLEEN: 12.3 cm length FINDINGS: LIVER: There is diffuse nodularity of the liver capsule and diffuse heterogeneity of the liver indicating ci rrhosis. The focal masslike hypodensity in the right lobe of the liver near the dome of the diaphragm seen on CT is not seen on ultrasound. No masses identified on ultrasound. Color Doppler flow is not identified within the main portal vein. There is contrast opacification of the portal vein on recent CT. Moderate ascites in the upper abdomen. COMMON DUCT: No intraluminal mass or stone visualized. GALLBLADDER: Diffusely thickened gallbladder wall. No calculi identified. PANCREAS: Poorly visualized due to overlying bowel gas. RIGHT KIDNEY: No hydronephrosis, stone or mass. SPLEEN: No focal lesion. CONCLUSION: 1. Mass identified in the right lobe of the liver near the dome of the diaphragm on recent CT is not seen on ultrasound. This area is not well covered on recent MR angiogram. MRI with and without contra st of the abdomen may be beneficial for further confirmation. 2. Color Doppler flow not identified the portal vein. Portal veins did opacify on recent CT. This fin ding may represent slow flow or be due to technical factors. 3. Splenic infarct identified on recent CT and MRA not seen on ultrasound. 4. Moderate ascites in the upper abdomen. 5. Nondistended gallbladder with nonspecific diffuse mild wall thickening. Michael Zarate MD on September 14, 2017 at 9:56 Board Certified Radiologist. This report was verified electronically.
[2017-09-14] MEDS: VASOPRESSIN INJ 40 UNITS in DEXTROSE 5% IN WATER 100ML INJ 98 ML IV SCH ×4 (10:34→16:59)
[2017-09-14] MEDS: MILRINONE INJ 20 MG in SODIUM CHLORIDE 0.9% INJ 80 ML IV SCH ×2 (10:34→17:52)
[2017-09-14] MEDS: metroNIDAZOLE 500 MG INJ 100 ML IV SCH ×3 (11:18→23:38)
[2017-09-14] MEDS: CEFEPIME INJ 1,000 MG in SODIUM CHLORIDE 0.9% INJ 100 ML IV SCH ×2 (11:18→17:55)
[2017-09-14] MEDS: FUROSEMIDE INJ 100 MG in SODIUM CHLORIDE 0.9% INJ 90 ML IV SCH ×3 (11:20→17:51)
[2017-09-14] MEDS: EPOPROSTENOL NEB SOLUTION 50 NG/KG/MIN 100 ML NEB SCH ×4 (11:31→20:19)
[2017-09-14] MEDS ORDERED: EPOPROSTENOL NEB SOLUTION 50 NG/KG/MIN 100 ML NEB SCH ×2 (12:00)
--- NOTE | 2017-09-14 12:11 | ECHRPT ---
Indication: ef assessment of chf CONCLUSIONS Normal left ventricular size and wall thickness. The left ventricular systolic function is normal wi th an estimated ejection fraction in the range of 60-65%. Left ventricular diastolic function parameters a re normal. The right ventricle is severely dilated. The right atrial size is severely dilated. A patent foramen ovale is present with a bidirected shunt demonstrated by color flow Doppler interrogation. There is severe tricuspid regurgitation. There is estimated severe pulmonary hypertension present ( > 70 mmHg). The right ventricular systoi lc function is moderately decreased. BP: / HR: Rhythm: MEASUREMENTS (Male / Female) Normal Values Technical Quality:Fair 2D ECHO RV Internal Dim ED PLAX 4.6 cm DOPPLER TR Peak Velocity 436.0 cm/s TR Peak Gradient 76.0 mmHg Right Atrial Pressure 10.0 mmHg Pulmonary Artery Systolic Pressu 86.0 mmHg Right Ventricular Systolic Press 86.0 mmHg PV Peak Velocity 125.0 cm/s PV Peak Gradient 6.3 mmHg FINDINGS LEFT VENTRICLE Normal left ventricular size and wall thickness. The left ventricular systolic function is normal wi th an estimated ejection fraction in the range of 60-65%. Left ventricular diastolic function parameters a re normal. RIGHT VENTRICLE The right ventricle is severely dilated. The right ventricular systoilc function is moderately decr eased. LEFT ATRIUM The left atrial size is normal. RIGHT ATRIUM The right atrial size is severely dilated. ATRIAL SEPTUM A patent foramen ovale or atrial septal defect is present with a bidirectional shunt demonstrated by color flow Doppler interrogation. Bidirectional atrial level shunt is observed with agitated saline contrast administration. AORTA The aortic root and proximal ascending aorta are normal in size on limited imaging. MITRAL VALVE Structurally normal mitral valve. No mitral valve stenosis or regurgitation. AORTIC VALVE Trileaflet aortic valve. No aortic valve stenosis or regurgitation. TRICUSPID VALVE Structurally normal tricuspid valve. There is severe tricuspid regurgitation. There is estimated severe pulmonary hypertension present ( > 70 mmHg). PULMONARY VALVE Mild pulmonary valve regurgitation. VESSELS The inferior vena cava is normal in size. PERICARDIUM No pericardial effusion. David Davalos MD, FACC (Electronically Signed) Final Date:14 September 2017 12:11
[2017-09-14] MEDS ORDERED: LACTULOSE SYRUP 20 GM/30 ML CUP PO SCH ×2 (13:00→21:00)
[2017-09-14] MEDS ORDERED: SODIUM BICARBONATE 8.4% INJ 50 MEQ/50 ML SYR IV PUSH ONE (13:15)
[2017-09-14] MEDS: NOREPINEPHRINE INJ 8 MG in SODIUM CHLOR 0.9% 250 ML INJ 242 ML IV PRN ×3 (13:46→22:23)
[2017-09-14] MEDS: EPINEPHrine (1:1000) INJ 2 MG in DEXTROSE 5% IN WATER INJ 250 ML IV PRN ×4 (17:03→20:56)
[2017-09-14 17:05] LABS: LACTIC ACID SEPSIS PROTOCOL 7.4 mmol/L (0.4-2.0)
[2017-09-14] MEDS: SODIUM CHLOR 0.9% IV SCH (20:19)
[2017-09-14] MEDS: FUROSEMIDE IV SCH (20:19)
[2017-09-14] MEDS: TIOTROPIUM BROMIDE 18 MCG INH INH SCH (20:21)
[2017-09-14 20:34] LABS: TROPONIN I 1.55 NG/ML (0.02-0.05)
[2017-09-14] MEDS ORDERED: LACTULOSE LIQ 300 ML in WATER STERILE FOR IRR BTL 700 ML RECTAL SCH (21:00)
[2017-09-15] VITALS: BP_SYST 61; BP_SYST 82; BP_DIAS 38; BP_DIAS 44; PULSE 110; RESP 22; TEMP 99.7; O2SAT 87
[2017-09-15] MEDS: EPINEPHrine (1:1000) INJ 2 MG in DEXTROSE 5% IN WATER INJ 250 ML IV PRN ×6 (00:12→06:57)
[2017-09-15 02:00] VITALS: PULSE 105
[2017-09-15] MEDS: FUROSEMIDE IV SCH (02:37)
[2017-09-15] MEDS: SODIUM CHLOR 0.9% IV SCH (02:37)
[2017-09-15] MEDS: CEFEPIME INJ 1,000 MG in SODIUM CHLORIDE 0.9% INJ 100 ML IV SCH (02:37)
[2017-09-15] MEDS: NOREPINEPHRINE INJ 8 MG in SODIUM CHLOR 0.9% 250 ML INJ 242 ML IV PRN ×2 (02:38→06:57)
[2017-09-15] MEDS: CHLORHEXIDINE GLUCONATE 2 % 1 PACK (2 CLOTHS) TOP SCH (03:34)
[2017-09-15] MEDS: EPOPROSTENOL NEB SOLUTION 50 NG/KG/MIN 100 ML NEB SCH ×2 (03:34)
[2017-09-15] MEDS: MILRINONE INJ 20 MG in SODIUM CHLORIDE 0.9% INJ 80 ML IV SCH (03:34)
[2017-09-15] MEDS: metroNIDAZOLE 500 MG INJ 100 ML IV SCH (03:34)
[2017-09-15] MEDS: MIDAZOLAM 100 MG/100 ML INJ 100 ML IV PRN (03:45)
[2017-09-15] MEDS: fentaNYL DRIP 250 ML IV PRN (03:46)
[2017-09-15 03:52] VITALS: O2SAT 83
[2017-09-15] MEDS: RESP: ALBUTEROL 2.5 MG/IPRATROPIUM 0.5 MG NEB (SCH) INH (03:52)
[2017-09-15 04:00] VITALS: BP_SYST 58; BP_SYST 74; BP_DIAS 37; BP_DIAS 45; PULSE 101; RESP 22; TEMP 98.5; O2SAT 83
[2017-09-15 04:11] LABS: HEMATOCRIT 24.5 % (39.0-51.0); MEAN CELL VOLUME 91.5 FL (80.0-100.0); MEAN CORPUSCULAR HEMOGLOBIN 25.7 PG (27.0-34.0); PLATELET COUNT 116 TH/MM3 (150-450); RED BLOOD COUNT 2.67 MIL/MM3 (4.50-5.90); WHITE BLOOD COUNT 15.3 TH/MM3 (4.0-11.0)
[2017-09-15 04:13] LABS: MEAN CORPUSCULAR HGB CONC 28.1 % (32.0-36.0)
[2017-09-15 04:14] LABS: INTERNATIONAL NORMALIZED RATIO 2.4 RATIO
[2017-09-15 04:15] LABS: HEMOGLOBIN 6.9 GM/DL (13.0-17.0)
[2017-09-15 04:33] LABS: ALBUMIN 3.1 GM/DL (3.4-5.0); BICARBONATE 11.8 MEQ/L (21.0-32.0); BLOOD UREA NITROGEN 40 MG/DL (7-18); CALCIUM 7.9 MG/DL (8.5-10.1); CHLORIDE 111 MEQ/L (98-107); CREATININE 4.04 MG/DL (0.60-1.30); GLOMERULAR FILTRATION RATE 15 ML/MIN (>89); GLUCOSE,RANDOM 51 MG/DL (74-106); SODIUM (NA) 142 MEQ/L (136-145)
[2017-09-15 04:34] LABS: ALT (GPT) 402 U/L (12-78)
[2017-09-15 04:41] LABS: ALKALINE PHOSPHATASE 81 U/L (45-117); AST (GOT) 1870 U/L (15-37); TOTAL BILIRUBIN ADULT 6.3 MG/DL (0.2-1.0); TOTAL PROTEIN 5.6 GM/DL (6.4-8.2)
[2017-09-15] MEDS ORDERED: DEXTROSE 50% IN WATER 50 ML SYRINGE ONE ×2 (05:12→06:11)
[2017-09-15 06:00] VITALS: BP_SYST 59; BP_SYST 83; BP_DIAS 37; PULSE 100
[2017-09-15] MEDS: PANTOPRAZOLE SODIUM 40 MG VIAL IV PUSH SCH (06:07)
[2017-09-15 06:57] VITALS: BP 58/35; PULSE 60
--- NOTE | 2017-09-15 08:26 | EKG ---
Date Performed: 09/13/2017 Time Performed: 13:17:18 PTAGE: 66 years EKG: Supraventricular tachycardia Low limb lead voltage Right bundle branch block with secondary T-wave abnormality. T-wave abnormality may also be secondary to ischemia Low voltage throughout Comp ared to previous tracing supraventricular tachycardia is new, T-wave abnormalities are more prominent Borderline ECG PREVIOUS TRACING : 07/09/2017 20.09 DOCTOR: Darren Moss Interpretating Date/Time 09/15/2017 08:24:31
[2017-09-15 11:08] LABS: HEPATITIS A AB IGM NEGATIVE (NEGATIVE); HEPATITIS B CORE AB IGM NEGATIVE (NEGATIVE); HEPATITIS B SURFACE ANTIGEN NEGATIVE (NEGATIVE); HEPATITIS C AB IgG NEGATIVE (NEGATIVE)
[2017-09-16 15:35] LABS: AMYLASE BODY FLUID 16 U/L; AMYLASE BODY FLUID TYPE PERITONEAL
--- NOTE | 2017-09-17 20:06 | HHI.DS ---
Summary Note Date of : Sep 15, 2017 Time Of : 722 Admission Date Sep 11, 2017 at 18:24 Admitting Diagnosis hemorrhagic shock Diagnosis at Time of : Procedures Bedside Critical Echocardiogram 09/14: grossly normal left ventricular function. Severe Right ventricular dilation and depression. Severe pulmonary hypertension. directly measured RAP 23 mmHg. TR gradient 32 mmHg, estimating RVSP of 55 mmHg. Evidence of septal flattening throughout cardiac cycle suggestive of RV volume and pressure overload. IVC is dilated at 2.3 cm and does not vary with respiration (paralyzed patient). no pericardial effusion. + bubble study and evidence of immediate [id number] shunting by bubble study suggestive of PFO with [id number] shunt. Brief History 66-year-old unfortunate gentleman with a long-time alcoholic dependency with liver cirrhosis. [facility] is [facility]. He denies ever having endoscopy. He drinks heavily on a daily basis. He denies illicit drug use. He's been having melena for several days. He started having hematemesis today. He started vomiting up bright red blood. Paramedics estimated 500 cc of bright red blood on the ground at home. He arrives with a pulse of 110 and a blood pressure 100 systolic. In the emergency department he continued vomiting copious amounts of blood, unable to protect his airway, and was intubated by ED attending. CBC/BMP: 09/15/17 0400 09/15/17 0400 Significant Findings Laboratory Tests Test 09/15/17 03:55 09/15/17 04:00 Lactic Acid Level 10.9 mmol/L (0.4-2.0) White Blood Count 15.3 TH/MM3 (4.0-11.0) Red Blood Count 2.67 MIL/MM3 (4.50-5.90) Hemoglobin 6.9 GM/DL (13.0-17.0) Hematocrit 24.5 % (39.0-51.0) Mean Corpuscular Hemoglobin 25.7 PG (27.0-34.0) Mean Corpuscular Hemoglobin Concent 28.1 % (32.0-36.0) Red Cell Distribution Width 21.0 % (11.6-17.2) Platelet Count 116 TH/MM3 (150-450) Prothrombin Time 24.0 SEC (9.8-11.6) Activated Partial Thromboplast Time 58.6 SEC (24.3-30.1) Blood Urea Nitrogen 40 MG/DL (7-18) Creatinine 4.04 MG/DL (0.60-1.30) Random Glucose 51 MG/DL (74-106) Total Protein 5.6 GM/DL (6.4-8.2) Albumin 3.1 GM/DL (3.4-5.0) Calcium Level 7.9 MG/DL (8.5-10.1) Aspartate Amino Transf (AST/SGOT) 1870 U/L (15-37) Alanine Aminotransferase (ALT/SGPT) 402 U/L (12-78) Total Bilirubin 6.3 MG/DL (0.2-1.0) Potassium Level 5.7 MEQ/L (3.5-5.1) Chloride Level 111 MEQ/L (98-107) Carbon Dioxide Level 11.8 MEQ/L (21.0-32.0) Anion Gap 19 MEQ/L (5-15) Estimat Glomerular Filtration Rate 15 ML/MIN (>89) Imaging Last 24 hours Impressions Chest X-Ray 09/11/17 0000 Signed Impressions: Service Date/Time: September 17:51 - CONCLUSION: 1. Developing left base pneumonia and tiny effusion. Right lung clear. 2. Appropriate position of the endotracheal tube and nasogastric tube. Oswaldo Nuñez MD Hospital Course 66-year-old unfortunate gentleman with a long-time alcoholic dependency with liver cirrhosis. He is a [facility]. He denies ever having endoscopy. He drinks heavily on a daily basis. He denies illicit drug use. He's been having melena for several days. He started having hematemesis today. He started vomiting up bright red blood. Paramedics estimated 500 cc of bright red blood on the ground at home. He arrives with a pulse of 110 and a blood pressure 100 systolic. In the emergency department he continued vomiting copious amounts of blood, unable to protect his airway, and was intubated by ED attending. 09/12: Afebrile. Hemodynamically stable. The patient has had approximately 100 cc bloody gastric output overnight. Patient consents remains on fentanyl and Versed sedation for ventilator synchrony. No melanotic stools throughout the night. Patient continues on serial monitoring of H&H. 09/13: Afebrile. Attempts made to transfer patient at [address] of the abdomen and pelvis unsuccessful secondary to hypotension, despite the patient having norepinephrine infusion ordered, not initiated by night RN. CT was abruptly aborted patient was transferred back to ICU. This a.m. patient noted urinary output continues to decrease creatinine significantly elevated. Abdomen extremely taut, bowel sounds not appreciated. CT of abdomen and pelvis pending. Patient remains on fentanyl and Versed infusions for ventilator synchrony. Planned to consider diminution of Fentanyl and initiate Propofol and Versed for sedation. 09/14: clinically worsened overnight. emergent paracentesis done, drained 1.7L. remains hypoxic. bedside Critical care ultrasound with new RV failure, severe pulmonary hypertension, severe volume overload and new acute [id number] intra -cardiac shunt by bedside bubble study: formal echo pending. remains unstable in shock with lactic acidosis and severe metabolic acidosis. paralyzed. worsening. 09/15: continued to decline despite maximal therapy. patient made DNR. aggressive care continued until patient despite our maximal efforts. Jonh Bran MD Sep 17, 2017 20:06
== END 2017-09-15 07:23 | disposition expired | DRG 871 ==
LOC: NEPC 17:02 → NEDA 18:24 → HIMN 09-12 00:15
PROVIDERS: ADMIT Internal Medicine Critical Care Medicine; ATTEND Internal Medicine Critical Care Medicine
PROC: 0BH17EZ Insertion of Endotracheal Airway into Trachea, Via Natural or Artificial Opening (ICD-10-PCS; principal; 2017-09-11)
PROC: 5A1945Z Respiratory Ventilation, 24-96 Consecutive Hours (ICD-10-PCS; 2017-09-11)
PROC: 30233N1 Transfusion of Nonautologous Red Blood Cells into Peripheral Vein, Percutaneous Approach (ICD-10-PCS; 2017-09-11)
PROC: 05HN33Z Insertion of Infusion Device into Left Internal Jugular Vein, Percutaneous Approach (ICD-10-PCS; 2017-09-12)
PROC: 06L38CZ Occlusion of Esophageal Vein with Extraluminal Device, Via Natural or Artificial Opening Endoscopic (ICD-10-PCS; 2017-09-12)
PROC: 0W9G3ZZ Drainage of Peritoneal Cavity, Percutaneous Approach (ICD-10-PCS; 2017-09-13)
PROC: 03HY32Z Insertion of Monitoring Device into Upper Artery, Percutaneous Approach (ICD-10-PCS; 2017-09-14)
DX: R57.8 Other shock (principal); I85.11 Secondary esophageal varices with bleeding; J96.01 Acute respiratory failure with hypoxia; I21.A1 Myocardial infarction type 2; N17.0 Acute kidney failure with tubular necrosis; G93.41 Metabolic encephalopathy; J81.0 Acute pulmonary edema; K76.6 Portal hypertension; E43 Unspecified severe protein-calorie malnutrition; D62 Acute posthemorrhagic anemia; D68.4 Acquired coagulation factor deficiency; E87.4 Mixed disorder of acid-base balance; Q21.1 Atrial septal defect; I27.20 Pulmonary hypertension, unspecified; D69.59 Other secondary thrombocytopenia; E87.70 Fluid overload, unspecified; K70.31 Alcoholic cirrhosis of liver with ascites; F10.20 Alcohol dependence, uncomplicated; F17.210 Nicotine dependence, cigarettes, uncomplicated; M19.90 Unspecified osteoarthritis, unspecified site; I10 Essential (primary) hypertension; Z66 Do not resuscitate; D73.5 Infarction of spleen; E83.51 Hypocalcemia; E87.5 Hyperkalemia; I48.91 Unspecified atrial fibrillation; J44.9 Chronic obstructive pulmonary disease, unspecified; K31.89 Other diseases of stomach and duodenum; K72.90 Hepatic failure, unspecified without coma; R57.0 Cardiogenic shock; R00.0 Tachycardia, unspecified; R73.9 Hyperglycemia, unspecified; Z87.11 Personal history of peptic ulcer disease; Z86.14 Personal history of Methicillin resistant Staphylococcus aureus infection
CPT/HCPCS: 31500; 36430; 36556; 36600; 49082; 71045; 74177; 76705; 76937; 80053; 80074; 82042; 82105; 82140; 82150; 82378; 82550; 82552; 82805; 82945; 82948; 83605; 83615; 83735; 84100; 84157; 84484; 85014; 85018; 85025; 85027; 85384; 85610; 85730; 86301; 86850; 86900; 86901; 86920; 87070; 87205; 87641; 88112; 89051; 93005; 93308; 94002; 94003; 94640; 94664; 94799; 96361; 96374; 96375; 99292; A9577; C8900; C9113; J0171; J0282; J0330; J0692; J0696; J1205; J1325; J1940; J2250; J2260; J2354; J2405; J3010; J3430; J7030; J7040; J7050; J7060; P9016; P9045; Q9967